=== PATIENT | male | born 1975 | race Caucasian/White ===

== ENCOUNTER → 2018-05-30 11:43 | Outpatient (CLI) | payer OTHER, MEDICAID, SELFPAY ==
[2018-05-30 14:30] LABS: ALB/GLOB Ratio 1.1 RATIO (0.9-2.4); AST(SGOT) 19 U/L (15-37); Absolute Lymphocyte Count 1.88 X10^3/ul (0.83-4.51); Absolute Neutrophil Count 4.7 X10^3/uL (2.0-7.7); Alanine Aminotransfer ALT/SGPT 21 U/L (16-61); Albumin, Serum 4.1 g/dL (3.2-5.0); Alkaline Phosphatase 78 U/L (45-117); Anion Gap 9 (5-15); BUN 22 mg/dL (7-18); BUN/Creat Ratio 21.8 RATIO (10-20); Basophil# 0.03 X10^3/uL; Basophil% 0.4 % (0-1); Calcium,Total 8.9 mg/dL (8.5-10.1); Chloride 103 mmol/L (98-107); Creatinine, Serum 1.01 mg/dL (0.70-1.30); EST Glomerular Filtration Rate 85 mL/min (>60); Eosinophil# 0.05 X10^3/uL; Eosinophils% 0.7 % (0-5); Est Glom Filt Rate - Afr Amer 103 mL/min (>60); Globulin 3.8 g/dL (2.2-4.2); Glucose 100 mg/dL (74-106); Hematocrit 46.6 % (40-54); Hemoglobin 15.7 g/dl (13.0-16.5); Lymphocyte # 1.88 X10^3/ul (4.0); Lymphocyte % 26.3 % (19-41); Mean Corp Hgb Conc 33.7 g/gl (32-36); Mean Corpuscular Hgb 31.5 pg (27.0-32.0); Mean Corpuscular Volume 93.6 fL (80-94); Mean Platelet Vol. 12.3 fl (6.2-12.0); Neutrophil # 4.69 X10^3/uL (2.7-7.7); Neutrophil % 65.6 % (47-70); POSITIVE COUNT NO; POSITIVE DIFFERENTIAL NO; POSITIVE MORPHOLOGY NO; Platelet Count 206 K/mm3 (150-450); Protein, Total 7.9 g/dL (6.4-8.2); RBC Distribution Width CV 13.5 % (11.6-14.6); RBC Distribution Width SD 45.1 fl (35.1-43.9); Red Blood Count 4.98 M/mm3 (4.6-6.2); Sodium Level 140 mmol/L (136-145); White Blood Count 7.2 K/mm3 (4.4-11.0)
== END ==
PROVIDERS: Family Provider Family Medicine; PCP Family Medicine; Visit Provider Family Medicine
DX: R31.0 Gross hematuria (principal); R10.32 Left lower quadrant pain; R50.9 Fever, unspecified
CPT/HCPCS: 36415; 80053; 85025; 87086

== ENCOUNTER → 2018-06-04 16:21 | Outpatient (CLI) | payer OTHER, MEDICAID, SELFPAY ==
--- NOTE | 2018-06-04 16:24 | CT_ITS ---
STUDY: CT ABDOMEN AND PELVIS WITH AND WITHOUT CONTRAST REASON FOR EXAM: Male, 42 years old. Left lower quadrant pain and hematuria RADIATION DOSAGE (If Supplied By Facility): CTDIvol = ( 11.95 ) mGy, DLP = ( 1253.93 ) mGycm TECHNIQUE: Transaxial images were obtained from the dome of the diaphragm to the symphysis pubis with oral contrast. 100 ml of Isovue 300 contrast was administered. Sagittal and coronal images were reconstructed. Individualized dose optimization techniques were used for this CT. COMPARISON: None. FINDINGS: The visualized lung bases are unremarkable. The visualized portions of the heart are within normal limits. Normal liver. Normal gallbladder and extrahepatic biliary system. Normal spleen. Normal pancreas. Normal bilateral adrenal glands. Normal right kidney. 9 mm nonobstructing left renal calculus. Mild prominence of the left renal pelvis with associated enhancement. No associated obstructing ureter stone. Findings could be related to mild residual acute obstructive uropathy. Normal visualized stomach. Normal small intestine. Probable constipation. The appendix is visualized and appears normal. Normal abdominal aorta. Normal inferior vena cava. Normal retroperitoneum. Normal urinary bladder. Normal abdominal wall. Normal osseous structures. Vasectomy clips. CT/CT Abd/Pelvis W/WO Contrast IMPRESSION: 9 mm nonobstructing left renal calculus. Mild prominence of the left renal pelvis with associated faint postcontrast enhancement. No associated obstructing ureter stone. These could be related to mild residual acute obstructive uropathy. No evidence of acute intestinal pathology. Probable constipation. Electronically Signed: Clifton Huitron MD at 6:51 EDT Tel , Service support ,
== END ==
PROVIDERS: Family Provider Family Medicine; PCP Family Medicine; Visit Provider Family Medicine
DX: R31.0 Gross hematuria (principal); R10.32 Left lower quadrant pain; R19.04 Left lower quadrant abdominal swelling, mass and lump
CPT/HCPCS: 74178; Q9967

== ENCOUNTER 2018-06-08 09:29 | Day surgery (SDC) | payer OTHER, MEDICAID, SELFPAY ==
--- NOTE | 2018-06-08 09:43 | RAD_ITS ---
STUDY: X-RAY - ABDOMEN/PELVIS REASON FOR EXAM: Male, 42 years old. Kidney stone TECHNIQUE: Single AP view of the abdomen / pelvis. COMPARISON: CT June 04, 2013 FINDINGS: Normal visualized lung bases. There is an unremarkable bowel gas pattern. There is no demonstrated free abdominal air. There is 1.0 cm left mid abdominal calcification consistent with renal stone. Normal visualized osseous structures. RAD/Abdomen Single View IMPRESSION: Left renal stone. Electronically Signed: Boogie Rodriguez MD at 13:48 EDT , Service support ,
[2018-06-08 10:06] VITALS: BP 112/75; PULSE 68; RESP 16; TEMP 36.8; O2SAT 100; BMI 24.6
[2018-06-08] MEDS: Cefazolin 2 GM in 0.9% Normal Saline 100 ML IV (10:50)
--- NOTE | 2018-06-08 10:57 | PCM.DC.URO ---
Discharge Diet: Light diet - advance as tolerated Discharge Activity: May not drive while taking narcotic pain medications. Allergies/Adverse Reactions: Allergies No Known Allergies Allergy (Verified 06/08/18 10:06) Medications to take at Discharge Cetirizine HCl [Zyrtec] 10 mg PO QHS 02/22/14 Cholecalciferol (Vitamin D3) [Vitamin D-3] 2,000 unit PO DAILY 02/22/14 Amitriptyline HCl [Elavil] 10 mg PO QHS 06/06/18 Aspirin [Adult Aspirin] 81 mg PO DAILY 06/06/18 Topiramate [Topamax] 50 mg PO QHS 06/06/18 Hydrocodone/Acetaminophen [[place] 5-325 Tablet] 1 ea PO Q4H PRN PRN 5 Days #14 tab 06/08/18 The following prescriptions were given: Hydrocodone/Acetaminophen [[place] 5-325 Tablet] 1 ea PO Q4H PRN PRN 5 Days #14 tab PRN Reason: Pain Primary Care Physician: Burton Graff MD [Primary Care Provider] - Test Results: Test results from this visit will be discussed in further detail at your follow-up appointment, if applicable. Please Follow Up With: Jose Cruz Bassett MD When: in 2 weeks, please call to make an appointment.
--- NOTE | 2018-06-08 11:36 | PCM.OPRPT ---
Report of Operation Date of Procedure: 06/08/18 Pre-Operative Diagnosis: Left kidney stone Post-Operative Diagnosis: Same Surgery/Procedure Performed:: Left extracorporeal shockwave lithotripsy Description of Surgical Findings:: 42-year-old male presented to the office he been having left flank pain and also passed a small fragment had some gross hematuria. CAT scan was done that demonstrated a stone up in the left kidney the renal pelvis about 9 mm in size. No other findings are seen. Plan to proceed with left ESWL shockwave lithotripsy of the stone in the kidney. 42-year-old male taken back to the operating room at the smooth induction of general anesthesia he was placed supine on the table we localize the stone in the left kidney stone was placed in the F2 focal point of the lithotripter machine and then a total of 3000 shocks were delivered to the stone at a rate of 90 power between 5-7 kV. The stone broke up very rapidly and at the end of treatment cycle there was no visible fragments. Therefore no stent was placed patient anesthetic was reversed taken back to PACU good condition plan to see him back in a few weeks with an x-ray. Type of Anesthesia:: General Drains: none - Admit VTE Documentation VTE Present on Admission: No VTE Mechan Device Prophylaxis: SCD's
[2018-06-08 11:49] VITALS: BP 112/75; BP 126/88; PULSE 55; RESP 18; TEMP 36.1; O2SAT 99
[2018-06-08 12:00] VITALS: BP 112/75; BP 118/86; PULSE 59; RESP 16; O2SAT 100
[2018-06-08 12:15] VITALS: BP 112/75; BP 128/86; PULSE 62; RESP 16; O2SAT 100
[2018-06-08 12:30] VITALS: BP 112/75; BP 126/86; PULSE 58; RESP 18; TEMP 36.3; O2SAT 100
[2018-06-08 13:33] VITALS: BP 112/75; BP 127/78; PULSE 61; RESP 16; TEMP 36.3; O2SAT 100
== END 2018-06-08 13:38 | disposition home or self-care (01) ==
LOC: SDC 09:32 → AC 09:32
PROVIDERS: Family Provider Family Medicine; PCP Family Medicine; Visit Provider Urology
PROC: (CPT 50590; principal; 2018-06-08 11:00)
DX: N20.0 Calculus of kidney (principal); R10.84 Generalized abdominal pain; R31.0 Gross hematuria; Z87.442 Personal history of urinary calculi
CPT/HCPCS: 00873; 50590; 74018; J7120; J2405

== ENCOUNTER → 2018-06-26 15:08 | Outpatient (CLI) | payer OTHER, MEDICAID, SELFPAY | PROVIDERS: Family Provider Family Medicine; PCP Family Medicine; Visit Provider Urology | DX: N20.0 Calculus of kidney (principal) | CPT/HCPCS: 74018 ==

== ENCOUNTER → 2018-12-11 13:54 | Outpatient (CLI) | payer OTHER, MEDICAID, SELFPAY ==
[2018-12-10 17:51] VITALS: BMI 25.8
[2018-12-11 14:01] LABS: Bacteria 0 SEEN /hpf (None Seen); Mucous, Urine 0 SEEN /hpf (<or=2+); Red Blood Cells-Urine 0 SEEN /hpf (0-5); Squamous Epithelial Cells - UA 0 SEEN /hpf (0-5); White Blood Cells 0 SEEN /hpf (0-5)
[2018-12-11 14:07] LABS: Color, Urine Yellow (Yellow); Glucose, Dipstick Normal (Normal); Ketone-Dipstick 15 mg/dl (Negative); Leukocyte Esterase-Dipstick Negative /ul (Negative); Nitrite-Dipstick Negative (Negative); Occult Blood-Urine Negative /ul (Negative); Protein-Dipstick Negative (Negative); Urine Bilirubin Dipstick Negative (Negative); Urine Clarity Clear (Clear); Urine Urobilinogen Normal (Normal); Urine pH 6.5 (5.0 - 8.0)
== END ==
PROVIDERS: Family Provider Family Medicine; PCP Family Medicine; Referring Provider Physician Assistant Surgical; Visit Provider Physician Assistant Surgical
DX: R30.0 Dysuria (principal)
CPT/HCPCS: 81001; 87086

== ENCOUNTER → 2018-12-25 15:54 | Outpatient (CLI) | payer OTHER, SELFPAY ==
[2018-12-10 17:51] VITALS: BMI 25.8
--- NOTE | 2018-12-25 16:03 | RAD_ITS ---
HISTORY: Pt. has a history of kidney stones, currently having LLQ and RLQ pain, as well as groin pain EXAM: KUB COMPARISON: None FINDINGS: # of images incl. paperwork: 2 XR Abdomen 1 View: BOWEL GAS PATTERN: Non-obstructive. No bowel or stomach distention. FREE AIR: Not assessed on a single supine view. ORGANOMEGALY: Not seen. CALCIFICATIONS: No pathologic calcifications observed. LUNG BASES: Clear. BONES AND SOFT TISSUES: Unremarkable. RAD/Abdomen Single View IMPRESSION: No visible renal, ureteral or urinary bladder calculi. at 0423 Reported and signed by: Axel Brown MD Electronically Signed: Axel Brown, at 4:21 EST Tel , Service support ,
== END ==
PROVIDERS: Family Provider Family Medicine; PCP Family Medicine; Referring Provider Urology; Visit Provider Urology
DX: N20.0 Calculus of kidney (principal)
CPT/HCPCS: 74018

== ENCOUNTER → 2020-01-06 | Outpatient (CLI) | payer BC, SELFPAY ==
[2018-12-10 17:51] VITALS: BMI 25.8
== END | disposition home or self-care (01) ==
LOC: LABSPEC 10:49
PROVIDERS: PCP Family Medicine; Visit Provider Urology
DX: N20.0 Calculus of kidney (principal)
CPT/HCPCS: 82360

== ENCOUNTER → 2020-01-14 | Outpatient (CLI) | payer BC, SELFPAY ==
[2018-12-10 17:51] VITALS: BMI 25.8
--- NOTE | 2020-01-14 16:05 | RAD_ITS ---
STUDY: X-RAY - ABDOMEN/PELVIS REASON FOR EXAM: Male, 44 years old. bilateral flank pain, kidney stone Hx, patient states he passed one recently TECHNIQUE: Single AP view of the abdomen / pelvis. COMPARISON: None. FINDINGS: Normal visualized lung bases. There is a moderate amount of colonic fecal material. There is no demonstrated free abdominal air. The visualized liver, spleen and kidneys are grossly normal in size and morphology. Surgical clips below the pubic symphysis, otherwise unremarkable soft tissue structures. Normal visualized osseous structures. RAD/Abdomen Single View IMPRESSION: Moderate fecal debris as described above, otherwise unremarkable x-ray examination of the abdomen and pelvis. Electronically Signed: Anastasia Correia MD at 3:59 EDT , Service support ,
== END | disposition home or self-care (01) ==
PROVIDERS: PCP Family Medicine; Referring Provider Urology; Visit Provider Urology
DX: N20.0 Calculus of kidney (principal)
CPT/HCPCS: 74018

== ENCOUNTER 2020-01-17 08:14 | Day surgery (SDC) | payer BC, SELFPAY ==
[2018-12-10 17:51] VITALS: BMI 25.8
[2020-01-17 08:31] VITALS: BP 118/72; PULSE 65; RESP 14; TEMP 36.7; O2SAT 98; BMI 26.2
[2020-01-17] MEDS: Lactated Ringers 1,000 ML 100 ML IV ×2 (08:42→12:15)
--- NOTE | 2020-01-17 11:38 | DCINST_ITS ---
Discharge Diet: Light diet - advance as tolerated Discharge Activity: Return to Normal Activity Instructions: Shock Wave Lithotripsy Allergies/Adverse Reactions: Allergies No Known Allergies Allergy (Verified 01/16/20 08:57) Medications to take at Discharge Cetirizine HCl [Zyrtec] 10 mg PO QHS 02/22/14 Cholecalciferol (Vitamin D3) [Vitamin D-3] 2,000 unit PO QHS 02/22/14 Amitriptyline HCl [Elavil] 10 mg PO QHS 06/06/18 Aspirin [Adult Aspirin] 81 mg PO DAILY 06/06/18 Topiramate [Topamax] 50 mg PO QHS 06/06/18 Ibuprofen [Advil] 200 mg PO PRN PRN 01/16/20 Hydrocodone/Acetaminophen [[place] 5-325 Tablet] 1 each PO Q4H PRN PRN 5 Days #14 tablet 01/17/20 The following prescriptions were given: Hydrocodone/Acetaminophen [[place] 5-325 Tablet] 1 each PO Q4H PRN PRN 5 Days #14 tablet PRN Reason: Pain Score 1-10/10 Transmission Status: Sent to [id number] Primary Care Physician: Burton Graff MD [Primary Care Provider] - Test Results: Test results from this visit will be discussed in further detail at your follow- up appointment, if applicable. Please Follow Up With: Jose Cruz Bassett MD When: in 2 weeks, please call to make an appointment.
[2020-01-17] MEDS: Cefazolin 2 GM in 0.9% Normal Saline 100 ML IV (11:40)
--- NOTE | 2020-01-17 12:14 | PCM.OPRPT ---
Report of Operation Date of Procedure: 01/17/20 Pre-Operative Diagnosis: Left ureteral calculi 6 mm Post-Operative Diagnosis: Same Surgery/Procedure Performed:: Left extracorporeal shockwave lithotripsy. Description of Surgical Findings:: The patient presents to the hospital today for treatment of a calculus with shockwave lithotripsy. The patient understands it is possible that a stent may need to be placed to assist in the fragmentation and displacement of the stone in order to alleviate obstruction. We discussed how the procedure is done expected outcomes. The Patient understands it is possible the stone may not break successfully and may require further procedures. We talked about the risks of the shockwave lithotripsy including risk of infection, bleeding, failure to break the stone, bleeding from the kidney or retroperitoneal bleeding and a very rare risk of a blood transfusion. We discused the risk of anesthesia. All the patient's questions were addressed and answered before the surgery and the patient signed the consent form. The patient was taken back to the operating room and after smooth induction of anesthesia was transferred onto the lithotripter table, fluoroscopy was used to identify the stone and then used triangulation technique to make sure the stone was in the F2 focal point of the lithotripter. Shockwave lithotripsy was started at a rate of 90/min and a total of 4000 shockwaves were delivered to the stone. During the treatment the stone was monitored with fluoroscopy to ensure that the stone maintained in the treatment zone and als fragmentation was monitored under fluoroscopy. Lithotripsy power used during the treatment was modified according to the fragmentation of the stone ranging from 5 to 9 kV depending on the location of the stone within the ureter and the kidney. After the completion of the therapy session the patient's anesthetic was reversed and was taken back to the PACU in stable condition. Type of Anesthesia:: General Drains: No stent - Admit VTE Documentation VTE Present on Admission: No VTE Mechan Device Prophylaxis: SCD's
[2020-01-17 12:45] VITALS: BP 118/72; BP 121/89; PULSE 73; RESP 18; TEMP 36.1; O2SAT 95
[2020-01-17 13:00] VITALS: BP 118/72; BP 121/90; PULSE 70; RESP 16; O2SAT 97
[2020-01-17] MEDS: Ketorolac 15 MG/ML Vial IV (13:01)
[2020-01-17 13:15] VITALS: BP 118/72; BP 119/83; PULSE 58; RESP 16; O2SAT 97
[2020-01-17 13:31] VITALS: BP 112/79; BP 118/72; PULSE 59; RESP 16; TEMP 36.2; O2SAT 99
[2020-01-17 14:21] VITALS: BP 118/72
== END 2020-01-17 14:22 | disposition home or self-care (01) ==
LOC: SDC 08:16 → AC 08:17
PROVIDERS: PCP Family Medicine; Referring Provider Urology; Visit Provider Urology
PROC: (CPT 50590; principal; 2020-01-17 09:45)
DX: N20.1 Calculus of ureter (principal); I15.8 Other secondary hypertension; G43.909 Migraine, unspecified, not intractable, without status migrainosus; Z87.442 Personal history of urinary calculi; Z79.82 Long term (current) use of aspirin; Z79.899 Other long term (current) drug therapy; Z86.73 Personal history of transient ischemic attack (TIA), and cerebral infarction without residual deficits
CPT/HCPCS: 50590; J7120; J2405

== ENCOUNTER → 2020-04-14 | Outpatient (CLI) | payer BC, SELFPAY ==
--- NOTE | 2020-04-14 15:07 | RAD_ITS ---
STUDY: X-RAY - ABDOMEN/PELVIS REASON FOR EXAM: Male, 44 years old. F/U PATIENT STATES HX OF KIDNEY STONES ON THE LEFT. HAD RECENT SURGERY TO REMOVE. TECHNIQUE: Single AP view of the abdomen / pelvis. COMPARISON: 01/14/2020 FINDINGS: There is an unremarkable bowel gas pattern. There is no demonstrated free abdominal air. The visualized liver, spleen and kidneys are grossly normal in size and morphology. Normal soft tissue structures. Normal visualized osseous structures. RAD/Abdomen Single View IMPRESSION: No urinary tract calculi are visible. Electronically Signed: Clifton Huitron MD at 17:27 EDT Tel , Service support ,
== END | disposition home or self-care (01) ==
LOC: RAD.FUTURE 15:05
PROVIDERS: PCP Family Medicine; Referring Provider Urology; Visit Provider Urology
DX: N20.1 Calculus of ureter (principal)
CPT/HCPCS: 74018

== ENCOUNTER → 2020-08-14 | Outpatient (CLI) | payer BC, SELFPAY ==
--- NOTE | 2020-08-14 08:22 | STRESSREP_ITS ---
Stress Test Report Date: Procedure: Exercise tolerance test/imaging study Indications: Chest pain Consent: Per the patient Procedure: The patient exercised on a Raul protocol for 9 minutes completing Stage III achieving a peak heart rate of 151 bpm (86% predicted maximal heart rate) with a peak blood pressure 152/84 mmHg and a peak MET capacity of 10 METs. The baseline ECG demonstrated normal sinus rhythm. The peak exercise ECG demonstrated no obvious ECG changes. There were no cardiac dysrhythmias pretest, during exercise, or recovery. The functional capacity was considered good. There was no complaint of chest discomfort during exercise or recovery. The examination was discontinued secondary to dyspnea. Impression: 1. Technically adequate (percent predicted maximal heart rate greater than 85%) exercise tolerance test 2. Peak exercise ECG demonstrated no obvious ECG changes 3. There were no cardiac dysrhythmias pretest, during exercise, or recovery 4. Nuclear images pending Myocardial perfusion imaging study: Technique: The patient was injected with 11.8 mCi of technetium 99m Cardiolite and subsequently rest SPECT Cardiolite nuclear imaging was obtained in the horizontal long, vertical long, and short axis views. The patient exercised on a Raul protocol for 9 minutes completing Stage III achieving a peak heart rate of 151 bpm (86% predicted maximal heart rate) with a peak blood pressure 152/84 mmHg and a peak MET capacity of 10 METs. The patient was injected with 35.8 mCi of technetium 99m Cardiolite and subsequently stress SPECT Cardiolite nuclear imaging was obtained in the horizontal long, vertical long, and short axis views. A gated Cardiolite study at peak stress was obtained. Interpretation: Rest and stress SPECT Cardiolite nuclear imaging status post realignment, normalization, and attenuation correction, demonstrates a small area of subtle diminished tracer uptake near the apical segments without significant change between rest and stress. There is end systolic thickening and brightening. The gated Cardiolite study demonstrates myocardial thickening and inward wall motion. The reported LVEF is 62%. Impression: 1. Rest and stress SPECT Cardiolite nuclear imaging demonstrate myocardial perfusion change appearing compatible with the effects of etiologic apical thinning with no myocardial perfusion changes considered diagnostic for associated stress-induced myocardial ischemia. 2. The gated Cardiolite study reports an LVEF of 62%. This note was generated with Simplificareation software. It may contain incorrect words, spelling, and punctuation that were not noted in checking the note before signing.
== END | disposition home or self-care (01) ==
PROVIDERS: PCP Family Medicine; Referring Provider Family Medicine; Visit Provider Family Medicine
DX: R07.9 Chest pain, unspecified (principal)
CPT/HCPCS: 78452; 93017; A9500; A4216

== ENCOUNTER → 2022-05-09 | Outpatient (CLI) | payer BC, SELFPAY ==
[2022-05-09 09:44] LABS: Absolute Lymphocyte Count 2.69 X10^3/uL (0.83-4.51); Absolute Neutrophil Count 3.9 X10^3/uL (2.0-7.7); Basophil# 0.06 X10^3/uL; Basophil% 0.8 % (0-1); Eosinophils% 1.3 % (0-5); Hematocrit 44.8 % (40-54); Hemoglobin 14.8 g/dL (13.0-16.5); Lymphocyte # 2.69 X10^3/ul (0.83-4.51); Lymphocyte % 34.8 % (19-41); Mean Corpuscular Hgb 30.8 pg (27.0-32.0); Mean Corpuscular Volume 93.3 fL (80-94); Mean Platelet Vol. 10.8 fl (6.2-12.0); Monocyte# 0.96 X10^3/uL; Monocyte% 12.4 % (0-10); NRBC Flagged by Analyzer 0 % (0-5); Neutrophil # 3.89 X10^3/uL (2.7-7.7); Neutrophil % 50.4 % (47-70); Platelet Count 241 K/mm3 (150-450); RBC Distribution Width CV 13.5 % (11.6-14.6); RBC Distribution Width SD 46.1 fl (35.1-43.9); White Blood Count 7.7 K/mm3 (4.4-11.0)
[2022-05-09 10:31] LABS: ALB/GLOB Ratio 1.1 RATIO (0.9-2.4); AST(SGOT) 35 U/L (15-37); Alanine Aminotransfer ALT/SGPT 22 U/L (16-61); Albumin, Serum 4.2 g/dL (3.2-5.0); Alkaline Phosphatase 95 U/L (45-117); Anion Gap 9 (5-15); BUN 24 mg/dL (7-18); BUN/Creat Ratio 21.8 RATIO (10-20); Calcium,Total 9.7 mg/dL (8.5-10.1); Chloride 100 mmol/L (98-107); Cholesterol 272 mg/dL (200); EST Glomerular Filtration Rate 76 mL/min (>60); Est Glom Filt Rate - Afr Amer 92 mL/min (>60); Globulin 3.8 g/dL (2.2-4.2); Glucose 106 mg/dL (74-106); High Density Lipoprotein 36 mg/dL; Potassium 3.7 mmol/L (3.5-5.1); Sodium Level 137 mmol/L (136-145); Triglycerides 242 mg/dL; Very Low Density Lipoprotein 48 mg/dL (5-40)
== END | disposition home or self-care (01) ==
PROVIDERS: PCP Family Medicine; Referring Provider Family Medicine; Visit Provider Family Medicine
DX: Z00.00 Encounter for general adult medical examination without abnormal findings (principal); E78.5 Hyperlipidemia, unspecified; Z79.899 Other long term (current) drug therapy
CPT/HCPCS: 36415; 80053; 80061; 85025

== ENCOUNTER → 2023-06-16 | Outpatient (CLI) | payer BC, SELFPAY ==
[2023-06-16 12:29] LABS: Absolute Lymphocyte Count 3.13 X10^3/uL (0.83-4.51); Absolute Neutrophil Count 4.6 X10^3/uL (2.0-7.7); Basophil# 0.05 X10^3/uL; Basophil% 0.6 % (0-1); Eosinophil# 0.11 X10^3/uL; Eosinophils% 1.3 % (0-5); Hematocrit 44.9 % (40-54); Hemoglobin 14.8 g/dL (13.0-16.5); Lymphocyte # 3.13 X10^3/ul (0.83-4.51); Lymphocyte % 36.1 % (19-41); Mean Corpuscular Hgb 31.3 pg (27.0-32.0); Mean Corpuscular Volume 94.9 fL (80-94); Mean Platelet Vol. 11.2 fl (6.2-12.0); Monocyte# 0.76 X10^3/uL; Monocyte% 8.8 % (0-10); NRBC Flagged by Analyzer 0 % (0-5); Platelet Count 228 K/mm3 (150-450); RBC Distribution Width CV 13.2 % (11.6-14.6); RBC Distribution Width SD 46.5 fl (35.1-43.9); Red Blood Count 4.73 M/mm3 (4.6-6.2); White Blood Count 8.7 K/mm3 (4.4-11.0)
[2023-06-16 13:09] LABS: ALB/GLOB Ratio 1.1 RATIO (0.9-2.4); AST(SGOT) 23 U/L (15-37); Alanine Aminotransfer ALT/SGPT 21 U/L (16-61); Albumin, Serum 3.9 g/dL (3.2-5.0); Alkaline Phosphatase 96 U/L (45-117); Anion Gap 7 (5-15); BUN 18 mg/dL (7-18); BUN/Creat Ratio 16.5 RATIO (10-20); Calcium,Total 9.2 mg/dL (8.5-10.1); Chloride 104 mmol/L (98-107); Cholesterol 170 mg/dL (200); Creatinine, Serum 1.09 mg/dL (0.70-1.30); EST Glomerular Filtration Rate 76 mL/min (>60); Est Glom Filt Rate - Afr Amer 92 mL/min (>60); Globulin 3.6 g/dL (2.2-4.2); Glucose 101 mg/dL (74-106); High Density Lipoprotein 39 mg/dL; Potassium 3.9 mmol/L (3.5-5.1); Protein, Total 7.5 g/dL (6.4-8.2); Sodium Level 139 mmol/L (136-145); Triglycerides 311 mg/dL; Very Low Density Lipoprotein 62 mg/dL (5-40)
[2023-06-16 13:14] LABS: Hemoglobin A1c 5.5 % (3.8-5.6)
== END | disposition home or self-care (01) ==
LOC: BFHLAB 10:24
PROVIDERS: PCP Family Medicine; Referring Provider Family Medicine; Visit Provider Family Medicine
DX: Z00.00 Encounter for general adult medical examination without abnormal findings (principal); E78.5 Hyperlipidemia, unspecified; R73.01 Impaired fasting glucose
CPT/HCPCS: 36415; 80053; 80061; 83036; 85025

== ENCOUNTER → 2023-09-15 | Outpatient (CLI) | payer BC, SELFPAY ==
[2023-09-15 16:01] LABS: Erythrocyte Sedimentation Rate 2 mm/hr (0-20)
[2023-09-15 16:31] LABS: CRP < 2.90 mg/L (0.0-3.0); Rheumatoid Factor < 10.0 IU/mL (<15)
[2023-09-18 13:07] LABS: ANTINUCLEAR ANTIBODIES DIRECT Negative (Negative); CCP IgG Antibodies 5 units (0-19)
== END | disposition home or self-care (01) ==
PROVIDERS: PCP Family Medicine; Visit Provider Family Medicine
DX: G70.00 Myasthenia gravis without (acute) exacerbation (principal); M25.50 Pain in unspecified joint; I67.82 Cerebral ischemia
CPT/HCPCS: 36415; 85652; 86038; 86140; 86200; 86431

== ENCOUNTER → 2023-09-27 | Outpatient (CLI) | payer BC, SELFPAY ==
[2023-09-27 12:49] LABS: Erythrocyte Sedimentation Rate 2 mm/hr (0-20)
[2023-09-27 12:52] LABS: Hematocrit 46.8 % (40-54); Hemoglobin 15.4 g/dL (13.0-16.5); Mean Corp Hgb Conc 32.9 g/dL (32-36); Mean Corpuscular Hgb 31.1 pg (27.0-32.0); Mean Corpuscular Volume 94.5 fL (80-94); Mean Platelet Vol. 11.8 fl (6.2-12.0); Platelet Count 247 K/mm3 (150-450); RBC Distribution Width CV 13.1 % (11.6-14.6); RBC Distribution Width SD 45.4 fl (35.1-43.9); Red Blood Count 4.95 M/mm3 (4.6-6.2); White Blood Count 7.5 K/mm3 (4.4-11.0)
[2023-09-27 13:19] LABS: AST(SGOT) 15 U/L (15-37); Alanine Aminotransfer ALT/SGPT 13 U/L (16-61); Albumin, Serum 3.9 g/dL (3.2-5.0); Alkaline Phosphatase 93 U/L (45-117); Anion Gap 6 (5-15); BUN 17 mg/dL (7-18); BUN/Creat Ratio 15.5 RATIO (10-20); Calcium,Total 8.9 mg/dL (8.5-10.1); Chloride 104 mmol/L (98-107); EST Glomerular Filtration Rate 75 mL/min (>60); Est Glom Filt Rate - Afr Amer 91 mL/min (>60); Globulin 3.8 g/dL (2.2-4.2); Glucose 97 mg/dL (74-106); Magnesium 2.3 mg/dL (1.6-2.6); Potassium 4.2 mmol/L (3.5-5.1); Protein, Total 7.7 g/dL (6.4-8.2); Sodium Level 138 mmol/L (136-145)
[2023-10-03 17:07] LABS: Anti-Cardiolipin Ab, IgA, Qn < 9 APL U/mL (0-11); Anti-Cardiolipin Ab, IgG, Qn < 9 GPL U/mL (0-14); Anti-Cardiolipin Ab, IgM, Qn < 9 MPL U/mL (0-12); Anti-Thrombin 3 AG, Immunol 130 % (72-124); Antithrombin 3 Function 123 % (75-135); Complement C3 140 mg/dL (82-167); Complement CH50 > 60 U/mL (>41); Dilute Prothrombin Time (dPT) 40.4 sec (0.0-47.6); Dilute Russell Viper Venom 125.4 sec (0.0-47.0); Dilute Russell Viper Venom Mix 37.9 sec (0.0-40.4); Interpretation Comment: (.); PTT-LA 38.4 sec (0.0-43.5); Protein C Antigen 127 % (60-150); Protein C, Functional 126 % (73-180); Protein S, Free 115 % (61-136); Protein S, Funtional 95 % (63-140); Protein S, Total 222 % (60-150); Thrombin Time 22.2 sec (0.0-23.0); dPT Confirm Ratio 1.13 Ratio (0.00-1.34)
== END | disposition home or self-care (01) ==
PROVIDERS: PCP Family Medicine; Referring Provider Psychiatry & Neurology Neurology; Visit Provider Psychiatry & Neurology Neurology
DX: I67.9 Cerebrovascular disease, unspecified (principal); G43.009 Migraine without aura, not intractable, without status migrainosus
CPT/HCPCS: 36415; 80053; 81240; 81241; 83735; 85027; 85300; 85301; 85302; 85303; 85305; 85306; 85652; 86147; 86160; 86162

== ENCOUNTER → 2023-10-18 | Outpatient (CLI) | payer BC, SELFPAY ==
--- NOTE | 2023-10-18 11:19 | MRI_ITS ---
INDICATION: Migraine headaches EXAMINATION: MRI - MR Brain WO/W Contrast TECHNIQUE: MRI examination of brain obtained with standard protocol including multiplanar multiecho imaging. MRI examination obtained with multiplanar multiecho pre and postcontrast imaging. Pre and Postcontrast imaging obtained. IV Contrast Dosage and Agent: 20 mL clariscan COMPARISON: 09/15/2015 FINDINGS: HEMISPHERES, CEREBELLUM AND BRAINSTEM: 1. The cerebral parenchyma, ventricular system, subarachnoid spaces have normal configuration and density. There is a normal gyral pattern. There is normal fonseca/white differentiation. No midline shift.. 2. There are scattered areas of T2 and FLAIR signal hyperintensity bilaterally. Many of these are located in the juxtacortical position. Largest is present within the RIGHT frontal lobe at the level of the RIGHT inferior frontal gyrus sac, and measures approximately 5 x 9 mm (series 6: Image 19). This appears increased in size slightly in the interval. No evidence of fluid restriction or acute ischemia. No areas of abnormal contrast enhancement. 3. No intraparenchymal mass, hemorrhage, or acute territorial infarct. 4. The cerebellum, brainstem, basilar and suprasellar cisterns have normal appearance. No Chiari malformation. PITUITARY: Infundibulum and pituitary have normal configuration. Midline structures appear normal. CSF SPACES: Appropriate for age. No hydrocephalus. Basal cisterns are patent. VESSELS: 1. There are normal flow voids noted in the great vessels at the skull base ORBITS AND PARANASAL SINUSES: 1. Both globes, extraocular muscles, optic nerves and retrobulbar fat appear unremarkable. 2. Paranasal sinuses are clear. BONY ELEMENTS: Bony elements of the cranial vault, facial skeleton and skull base have normal appearance. SCALP AND SOFT TISSUES: Normal appearance of the soft tissues of the scalp and the visualized face OTHER: None MRI/Brain W/WO Contrast IMPRESSION: 1. Persistent hemispheric white matter signal abnormalities with slight increase in a focal area of subcortical white matter signal hyperintensity in the RIGHT inferior frontal gyrus. Remaining areas appear stable. Findings may represent sequelae of early chronic microvascular deep white matter disease. Sequelae of migraine syndrome is an additional consideration. 2. No mass, hemorrhage, or acute territorial infarct. 3. No radiographically significant sinus disease. Electronically Signed: Laith Ramires MD at 23:37 EST ,
== END | disposition home or self-care (01) ==
PROVIDERS: PCP Family Medicine; Referring Provider Psychiatry & Neurology Neurology; Visit Provider Psychiatry & Neurology Neurology
DX: G43.009 Migraine without aura, not intractable, without status migrainosus (principal)
CPT/HCPCS: 70553; A9575

== ENCOUNTER → 2023-10-25 | Outpatient (CLI) | payer BC, SELFPAY ==
--- OUTSIDE RECORDS SUMMARY | 2023-10-26 07:05 | XMS RPT_ITS | CCD ---
Author Name Unknown Address [address] [place] [address] Organization [facility] Results Test Name Value Interpretation Reference Range Facil ity Progress note 05-07-2021 Note Date & Type Note Facility 05-07-2021 Note HNO ID: [id number] Author: Clifton Beck Jr., MD Service: ? Author Type: Physician Type: Progress Notes Filed: 05/07/2021 5:27 PM Note Text: ESTABLISHED PATIENT VISIT CHIEF COMPLAINT: Follow up HISTORY OF PRESENT ILLNESS: Maury Yen is a 45 year old male, with a PMH significant for and per last office visit note of 11/02/20: 1. Intractable migraine without aura and without status migrainosus - ICD9: 346.11, ICD10: G43.019 (primary diagnosis) Doing well on VPA ER 500mg QHS. Uncertain if weight gain related to VPA or other. Discussed with patient, and provided option of lowering VPA dose or alternative therapy. However, patient would like to continue VPA ER at current dose of 500mg QHS. SE and ADRs reviewed with patient. If weight gain persists he will contact us and at that time can lower dose to 250mg QHS. ? 2. Renal stones - ICD9: 592.0, ICD10: N20.0 Asx since d/c of Topamax. ? 3. Abnormal involuntary movement - ICD9: 781.0, ICD10: R25.9 Improved on VPA ER - only present when in significant stressful situation. ? 4. White matter disease, unspecified - ICD9: 348.89, ICD10: R90.82 Stable in comparing prior MRI to present. Likely related to migraines. Would be atypical pattern for demyelinating process. Images reviewed with patient. Non-focal neuro exam. Will continue to monitor. ? 5. Chest pain as above - Encouraged pt to follow up with PCP. Patient reports not doing bad. No more renal stones. States weight has been stable. Feels headaches are occasional. February 6 headaches since last visit, and last only a couple hours with them aborted with use of Advil. States appetite is crazy. Chest pain resolved - passed stress test per patient. Was put on PPI for 2 months and quit Vit C and K+Citrate -- symptoms have since resolved. Still with occasional involuntary movement but <1 per month and usually if really hungry. New job - more stress but not exacerbating medical conditions. REVIEW OF SYSTEMS GENERAL:No weight loss, malaise or fevers. HEENT:Negative for frequent or significant headaches, No changes in hearing or vision, no nose bleeds or other nasal problems RESPIRATORY: Negative for cough, wheezing or shortness of breath. CARDIOVASCULAR: Negative for chest pain, leg swelling or palpitations. LAB/IMAGING: Those performed since patient's last visit have been reviewed. WBC (k/uL) Date Value 05/04/2020 8.17 RBC (m/uL) Date Value 05/04/2020 4.81 Hemoglobin (g/dL) Date Value 05/04/2020 14.9 Hematocrit (%) Date Value 05/04/2020 46.4 MCV (fL) Date Value 05/04/2020 96.5 MCH (pG) Date Value 05/04/2020 31.0 MCHC (g/dL) Date Value 05/04/2020 32.1 RDW-CV (%) Date Value 05/04/2020 13.7 Platelet Count (k/uL) Date Value 05/04/2020 222 MPV (fL) Date Value 05/04/2020 11.7 Glucose (mg/dL) Date Value 05/04/2020 91 BUN (mg/dL) Date Value 05/04/2020 24 Creatinine (mg/dL) Date Value 05/04/2020 1.10 Sodium (mmol/L) Date Value 05/04/2020 139 Potassium (mmol/L) Date Value 05/04/2020 4.0 Chloride (mmol/L) Date Value 05/04/2020 104 CO2 (mmol/L) Date Value 05/04/2020 24 Protein, Total (g/dL) Date Value 05/04/2020 7.1 Albumin (g/dL) Date Value 05/04/2020 4.7 Calcium (mg/dL) Date Value 05/04/2020 9.3 Alkaline Phosphatase (U/L) Date Value 05/04/2020 77 Bilirubin, Total (mg/dL) Date Value 05/04/2020 0.9 AST (U/L) Date Value 05/04/2020 23 ALT (U/L) Date Value 05/04/2020 9 (L) MEDICATIONS: amitriptyline (ELAVIL) 10 mg tablet Take 1 tablet by mouth once daily. aspirin (ASPIR-81 ORAL) Take 1 tablet by mouth once daily. Cetirizine 10 mg cap Take 1 tablet by mouth once daily. cholecalciferol (VITAMIN D3) 400 unit tab Take 400 Units by mouth once daily. Ascorbic Acid (VITAMIN C) 1,000 mg tablet Take 1,000 mg by mouth once daily. naproxen (NAPROSYN) 500 mg tablet Take 1 tablet by mouth twice daily as needed (for headache.). Should not take more than 3 days per week (6 tabs) divalproex ER (DEPAKOTE ER) 500 mg 24 hr tablet Take 1 tablet by mouth daily at bedtime. potassium citrate ER (UROCIT-K) 10 mEq (1,080 mg) Take 1 tablet by mouth once daily. Bacillus coagulans (DIGESTIVE ADVANTAGE PROB GUMMY) 250 million cell Take 1 tablet by mouth once daily. cranberry conc-ascorbic acid 12,600-20 mg cap Take 1 capsule by mouth once daily. elderberry fruit (ELDERBERRY ORAL) Take 1 tablet by mouth once daily. methylPREDNISolone (MEDROL, CHANDRIKA,) 4 mg Dose-Pack Take as directed on package. HISTORIES No past medical history on file. No family history on file. SOCIAL HISTORY Social History Tobacco Use - Smoking status: Never Smoker - Smokeless tobacco: Never Used Substance Use Topics - Alcohol use: Never - Drug use: Never PHYSICAL EXAMINATION BP 116/68 (BP Site: Left Arm, BP Position: Sitting, BP Cuff Size: Regular Adult) Pulse (!) 50 Resp 12 Wt 91.5 kg (201 lb 1 (more content not included)... [facility] Summary Purpose Family History No Family History Records Found Advance Directives No Advanced Directives Records Found Additional Source Comments (unrecognized sect ion and content) No Status Records Found INFORMATION SOURCE (unrecogn ized section and content) FOR RECORDS PERTAINING TO PATIENTS WHO ARE OR HAVE BEEN ENROLLED IN A CHEMICAL DEPENDENCY/SUBSTANCEABUSE PROGRAM, SOME INFORMATION MAY BE OMITTED. This clinical summary was aggregated from multiple sources. Caution should be exercised in using it in the provision of clinical care. This summary normalizes information from multiple sources, and as a consequence, information in this document may materially change the coding, format and clinical context of patient data. In addition, data may be omitted in some cases. CLINICAL DECISIONS SHOULD BE BASED ON THE PRIMARY CLINICAL RECORDS. [facility]. provides no warranty or guarantee of the accuracy or completeness of information in this document.
== END | disposition home or self-care (01) ==
PROVIDERS: PCP Family Medicine; Referring Provider Psychiatry & Neurology Neurology; Visit Provider Psychiatry & Neurology Neurology
DX: G47.30 Sleep apnea, unspecified (principal)
CPT/HCPCS: 95806

== ENCOUNTER → 2024-06-12 | Outpatient (CLI) | payer BC, SELFPAY ==
[2024-06-12 12:21] LABS: Absolute Lymphocyte Count 2.74 X10^3/uL (0.83-4.51); Absolute Neutrophil Count 4.8 X10^3/uL (2.0-7.7); Basophil# 0.04 X10^3/uL; Basophil% 0.5 % (0-1); Eosinophil# 0.08 X10^3/uL; Eosinophils% 0.9 % (0-5); Hematocrit 44.8 % (40-54); Hemoglobin 14.8 g/dL (13.0-16.5); Lymphocyte # 2.74 X10^3/ul (0.83-4.51); Lymphocyte % 31.9 % (19-41); Mean Corpuscular Hgb 30.8 pg (27.0-32.0); Mean Corpuscular Volume 93.3 fL (80-94); Mean Platelet Vol. 11.6 fl (6.2-12.0); Monocyte# 0.91 X10^3/uL; Monocyte% 10.6 % (0-10); NRBC Flagged by Analyzer 0 % (0-5); Neutrophil # 4.81 X10^3/uL (2.7-7.7); Neutrophil % 55.9 % (47-70); Platelet Count 246 K/mm3 (150-450); RBC Distribution Width CV 13.3 % (11.6-14.6); White Blood Count 8.6 K/mm3 (4.4-11.0)
[2024-06-12 12:28] LABS: ALB/GLOB Ratio 1.1 RATIO (0.9-2.4); AST(SGOT) 27 U/L (15-37); Alanine Aminotransfer ALT/SGPT 21 U/L (16-61); Alkaline Phosphatase 89 U/L (45-117); Anion Gap 8 (5-15); BUN 19 mg/dL (7-18); BUN/Creat Ratio 16.8 RATIO (10-20); Calcium,Total 9.4 mg/dL (8.5-10.1); Chloride 100 mmol/L (98-107); Cholesterol 166 mg/dL (200); Creatinine, Serum 1.13 mg/dL (0.70-1.30); EST Glomerular Filtration Rate 73 mL/min (>60); Est Glom Filt Rate - Afr Amer 88 mL/min (>60); Globulin 3.8 g/dL (2.2-4.2); Glucose 101 mg/dL (74-106); High Density Lipoprotein 37 mg/dL; Potassium 3.9 mmol/L (3.5-5.1); Protein, Total 7.8 g/dL (6.4-8.2); Sodium Level 134 mmol/L (136-145); Triglycerides 287 mg/dL; Very Low Density Lipoprotein 57 mg/dL (5-40)
== END | disposition home or self-care (01) ==
LOC: MTLAB 10:02
PROVIDERS: PCP Family Medicine; Referring Provider Family Medicine; Visit Provider Family Medicine
DX: I10 Essential (primary) hypertension (principal); E78.5 Hyperlipidemia, unspecified
CPT/HCPCS: 36415; 80053; 80061; 85025

== ENCOUNTER → 2024-10-11 | Outpatient (CLI) | payer BC, SELFPAY ==
--- NOTE | 2024-10-11 10:04 | RAD_ITS ---
EXAM: XR THORACIC SPINE, 3 VIEWS CLINICAL INDICATION: Pain in thoracic spine TECHNIQUE: Frontal, lateral and swimmer''s views of the thoracic spine. COMPARISON: No relevant prior studies available. FINDINGS: VERTEBRAE: Unremarkable. Preserved vertebral body height. No fracture. No spondylolisthesis. Preservation of the normal thoracic kyphosis. No significant facet arthropathy. DISC SPACES: Mild degenerative changes of the intervertebral discs. RAD/Thoracic Spine 3 Views IMPRESSION: 1. No acute injuries identified involving the thoracic spine. 2. Mild degenerative changes. Electronically Signed: Moy Silverio MD at 11:56 EST ,
== END | disposition home or self-care (01) ==
LOC: MTRAD 10:02
PROVIDERS: PCP Family Medicine; Referring Provider Family Medicine; Visit Provider Family Medicine
DX: M54.6 Pain in thoracic spine (principal)
CPT/HCPCS: 72072

== ENCOUNTER → 2025-05-07 | Outpatient (CLI) | payer BC, SELFPAY ==
--- NOTE | 2025-05-07 06:32 | ECHOD_ITS ---
Reason For Study Reason For Study: CHEST PAIN Procedure This was a 2D Doppler, Color Flow transthoracic echocardiogram. Exam performed in department. Left Ventricle Normal size and thickness. The LV ejection fraction is 60 %. Normal diastololic function. Right Ventricle Normal right ventricle. Atria The left and right atria are normal. Mitral Valve Trivial mitral valve insufficiency. Tricuspid Valve Trivial tricuspid valve insufficiency. Normal pulmonary artery pressure. Aortic Valve Trisinus/trileaflet aortic valve. Pulmonic Valve The pulmonic valve is not well visualized. Trivial pulmonic valve insufficiency. Great Vessels Normal sized aortic root. Pericardium/Pleural No pericardial effusion. MMode/2D Measurements & Calculations LVIDd: 4.7 cm IVSd: 0.90 cm Ao root diam: 3.4 cm LVIDs: 3.4 cm LVPWd: 0.93 cm RVDd: 3.3 cm FS: 28.2 % LAV(MOD-bp): 49.0 ml LVAd ap4: 29.7 cm2 LVAd ap2: 25.7 cm2 LAV(MOD-bp) Indexed: 24.1 ml/m2 LVLd ap4: 7.6 cm LVLd ap2: 7.3 cm LAV(MOD-sp2): 48.5 ml EDV(MOD-sp4): 93.6 ml EDV(MOD-sp2): 74.2 ml LAV(MOD-sp4): 47.7 ml EDV(sp4-el): 97.9 ml EDV(sp2-el): 77.3 ml LVAs ap4: 17.3 cm2 LVAs ap2: 15.4 cm2 LVLs ap4: 6.2 cm LVLs ap2: 6.4 cm ESV(MOD-sp4): 41.3 ml ESV(MOD-sp2): 32.5 ml ESV(sp4-el): 41.3 ml ESV(sp2-el): 31.3 ml EF(MOD-sp4): 55.8 % EF(MOD-sp2): 56.2 % EF(sp4-el): 57.8 % SV(MOD-sp4): 52.2 ml SV(MOD-sp2): 41.7 ml SV(sp4-el): 56.6 ml SI(MOD-sp4): 25.7 ml/m2 SI(MOD-sp2): 20.5 ml/m2 LA A4 area: 16.5 cm2 LA dimension(2D): 3.9 cm RA A4 area: 13.9 cm2 TAPSE: 2.0 cm Time Measurements MV dec time: 0.15 sec Doppler Measurements & Calculations MV E max grover: 77.2 cm/sec Lat Peak E' Grover: 12.9 cm/sec Med Peak E' Grover: 9.7 cm/sec MV A max grover: 53.5 cm/sec E/E' lat: 6.0 E/E' med: 8.0 MV E/A: 1.4 MV V2 max: 71.7 cm/sec MV P1/2t max grover: 62.6 cm/sec Ao V2 max: 96.4 cm/sec MV max P.1 mmHg MV P1/2t: 38.5 msec Ao max P.7 mmHg MV V2 mean: 37.6 cm/sec Ao V2 mean: 68.0 cm/sec MV mean P.67 mmHg MV dec slope: 475.3 cm/sec2 Ao mean P.1 mmHg MV V2 VTI: 21.6 cm MVA(P1/2t): 5.7 cm2 Ao V2 VTI: 21.9 cm AV (velocity ratio): 0.83 LV V1 max: 85.9 cm/sec PA V2 max: 70.0 cm/sec TR max grover: 219.1 cm/sec LV V1 max P.0 mmHg PA V2 mean: 50.1 cm/sec TR max P.2 mmHg LV V1 mean P.5 mmHg LV V1 mean: 57.5 cm/sec LV V1 VTI: 18.2 cm ECHO/Echo Complete Interpretation Summary The LV ejection fraction is 60 %. Ordering Physician: Darci Bell Referring Physician: Deana Gutiérrez Performed By: Giulia Hernandez, F[place], RVT
--- NOTE | 2025-05-07 09:41 | STRESSREP_ITS ---
Stress Test Report Date: 05/07/2025 Procedure: Exercise tolerance test/imaging study Indications: Chest pain Consent: Per the patient Procedure: The patient exercised on a Raul protocol for 7 minutes achieving a peak heart rate of 150 bpm (88% predicted maximal heart rate) with a peak blood pressure 148/70 mmHg and a peak MET capacity of 10.1 METs. The baseline ECG demonstrated sinus rhythm. The peak exercise ECG showed sinus tachycardia with no ischemic changes. There were no cardiac dysrhythmias pretest, during exercise, or recovery. The functional capacity was considered average. There was no chest pain reported during exercise or recovery however shortness of breath was reported. The examination was discontinued secondary to target heart rate being achieved and shortness of breath. The patient was injected with 11.8 mCi of technetium 99m Cardiolite and subsequently rest SPECT Cardiolite nuclear imaging was obtained in the horizontal long, vertical long, and short axis views. Post-exercise, the patient was injected with 34.4 mCi of technetium 99m Cardiolite and subsequently stress SPECT Cardiolite nuclear imaging was obtained in the horizontal long, vertical long, and short axis views. A gated Cardiolite study at peak stress was obtained. Rest and stress SPECT Cardiolite nuclear imaging status post realignment, normalization, and attenuation correction, demonstrates a small reversible perfusion defect of the apex that suggests mild apical ischemia. There is end systolic thickening and brightening. The gated Cardiolite study demonstrates myocardial thickening and inward wall motion. The reported LVEF is 57%. Impression: 1. Technically adequate (percent predicted maximal heart rate greater than 85%) exercise tolerance test 2. Peak exercise ECG with no diagnostic ischemic changes 3. There were no cardiac dysrhythmias pretest, during exercise, or recovery 4. Rest and stress SPECT Cardiolite nuclear imaging demonstrate small reversible apical perfusion defect suggestive of mild apical ischemia. 5. The gated Cardiolite study reports an LVEF of 57%. This note was generated with [employer] software. It may contain incorrect words, spelling, and punctuation that were not noted in checking the note before signing.
== END | disposition home or self-care (01) ==
PROVIDERS: PCP Family Medicine; Referring Provider Internal Medicine Cardiovascular Disease; Visit Provider Internal Medicine Cardiovascular Disease
DX: R07.9 Chest pain, unspecified (principal); R06.09 Other forms of dyspnea
CPT/HCPCS: 78452; 93017; 93306; A9500; A4216

== ENCOUNTER → 2025-08-12 | Outpatient (CLI) | payer BC, SELFPAY ==
--- NOTE | 2025-08-12 14:01 | RAD_ITS ---
PROCEDURE: CHEST PA AND LATERAL 08/12/2025 REASON FOR EXAM: PRE-OPERATIVE: C TECHNIQUE: Procedure Code: RADCXR Modality: DX Procedure: CHEST PA AND LATERAL COMPARISON: None FINDINGS: Left lower lobe opacity likely reflecting subsegmental atelectasis. No pleural effusion or pneumothorax. Cardiac silhouette is within normal limits. No acute fractures. RAD/Chest PA and Lateral IMPRESSION: Left lower lobe opacity likely reflecting subsegmental atelectasis. Reading Location: [id number]
--- NOTE | 2025-08-12 14:01 | RAD_ITS ---
PROCEDURE: CHEST PA AND LATERAL 08/12/2025 REASON FOR EXAM: PRE-OPERATIVE: C TECHNIQUE: Procedure Code: RADCXR Modality: DX Procedure: CHEST PA AND LATERAL COMPARISON: None FINDINGS: Left lower lobe opacity likely reflecting subsegmental atelectasis. No pleural effusion or pneumothorax. Cardiac silhouette is within normal limits. No acute fractures. RAD/Chest PA and Lateral IMPRESSION: Left lower lobe opacity likely reflecting subsegmental atelectasis. Reading Location: [id number]
[2025-08-12 18:39] LABS: Hematocrit 43.1 % (40-54); Hemoglobin 14.3 g/dL (13.0-16.5); Immature Granulocytes Count 0.030 X10^3/uL (0.0-0.0); Mean Corp Hgb Conc 33.2 g/dL (32-36); Mean Corpuscular Volume 94.7 fL (80-94); Mean Platelet Vol. 12.0 fl (6.2-12.0); NRBC Flagged by Analyzer 0 % (0-5); Platelet Count 228 K/mm3 (150-450); RBC Distribution Width CV 13.2 % (11.6-14.6); RBC Distribution Width SD 45.9 fl (35.1-43.9); Red Blood Count 4.55 M/mm3 (4.6-6.2); White Blood Count 8.5 K/mm3 (4.4-11.0)
[2025-08-12 19:09] LABS: Anion Gap 12 (5-15); BUN 22 mg/dL (4-19); BUN/Creat Ratio 21.5 RATIO (10-20); Calcium,Total 9.5 mg/dL (7.6-11.0); Carbon Dioxide 26.2 mmol/L (21.0-32.0); Chloride 101 mmol/L (98-108); Glucose 96 mg/dL (70-99); Potassium 4.7 mmol/L (3.3-5.1)
== END | disposition home or self-care (01) ==
LOC: MTLAB 14:01
PROVIDERS: PCP Family Medicine; Referring Provider Nurse Practitioner Family; Visit Provider Nurse Practitioner Family
DX: R94.39 Abnormal result of other cardiovascular function study (principal); R06.09 Other forms of dyspnea; I10 Essential (primary) hypertension
CPT/HCPCS: 36415; 71046; 80048; 85025

== ENCOUNTER 2025-08-19 11:43 | Observation (INO) | payer BC, SELFPAY ==
--- NOTE | 2025-08-14 12:18 | HP.PCM_ITS ---
History and Physical Date of Admission: 08/19/25 This gentleman has a past medical history significant for dyslipidemia and hypertension. Also has history of premature coronary artery disease with his father undergoing CABG surgery at age 56. He has been referred to us for his complaints of dyspnea on exertion and chest pain. Per patient, few weeks ago, he woke up in the middle of the night with sharp anterior chest discomfort. This was unrelenting and was relieved only when he took some ibuprofen. Per patient, he also gets occasional left-sided chest discomfort which he describes as a knuckle. This is not related to exertion. No radiation to the arm neck or jaw. No associated diaphoresis. No associated shortness of breath. For the past some time, patient does describe dyspnea with moderate to strenuous exertion. Denies any orthopnea. No PND. No ankle edema. 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 Required: No Accompanied by: Self Is patient in pain?: Yes (bilateral shoulders 50/10) Allergies Influenza Virus Vaccines Allergy (Unknown, Verified 03/31/25 10:03) Other clavulanic acid (From Augmentin) Adverse Reaction (Severe, Verified 03/31/25 10:03) Nausea/Vom/Diarrhea atorvastatin (From Lipitor) Adverse Reaction (Unknown, Verified 03/31/25 10:03) NEEDS FOLLOW-UP Medications: See EMR Have you fallen in the past year?: No PFSH Medical History Cerebral ischemia Chest pain Hemorrhoids History of renal calculi Hyperlipidemia Hypertension Kidney stone Vitamin D deficiency Wears hearing aid Surgical History History of lithotripsy History of vasectomy Family History Father Heart disease Hypertension Mother Cancer Sister Lupus (systemic lupus erythematosus) Brother Rheumatoid arthritis Grandfather Colon cancer Social History household members: spouse 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 Present separately) Exacerbation: rest Relieving: rest (for dull pain) and other (ibuprofen and water for HS sharp pain) Palpitations: No Edema: None Muscle aches with walking: None Resp Respiratory: Positive for SOB with activity (improved); Negative for SOB at rest or SOB orthopnea\SOB lying down GI GI: Positive for nausea (separate from chest pains; worsened recently); Negative vomiting or heartburn Musc Musc: Positive for joint pain; Negative for muscle aches/ myalgia, muscle weakness or balance problems Neuro Neuro: Positive for lightheadedness (occasional per pt); Negative for dizziness, near syncope, syncope, headache(s) or weakness Endo Endo: Positive for fatigue Cardiology Exam Const Appearance: comfortable and no acute distress Nutritional Appearance: well nourished Neck Neck: no JVD Carotids: Negative bruit Chest Auscultation: Bilateral: Clear to Auscultation Cardio Rate: regular rate Rhythm: regular rhythm Heart sounds: S1 normal and S2 normal Neuro General: patient alert, patient awake and patient oriented x3 Extremities Lower Extremity Edema: None: Bilateral Supplemental Info Supplemental Information Stress test from 05/07/2025: Impression: 1. Technically adequate (percent predicted maximal heart rate greater than 85%) exercise tolerance test 2. Peak exercise ECG with no diagnostic ischemic changes 3. There were no cardiac dysrhythmias pretest, during exercise, or recovery 4. Rest and stress SPECT Cardiolite nuclear imaging demonstrate small reversible apical perfusion defect suggestive of mild apical ischemia. 5. The gated Cardiolite study reports an LVEF of 57%. Echocardiogram from 05/07/2025: Interpretation Summary The LV ejection fraction is 60 %. Assessment and Plan Assessment and Plan (1) Dyspnea on exertion: Status: Chronic Plan: On account of his shortness of breath and risk factors, he underwent an echocardiogram and stress test in April 2025. Based on stress test results, it was recommended to proceed with coronary CTA. This was denied by his insurance. He will thus proceed with heart catheterization to assess further. Depending on results, further recommendation be made. (2) Chest pain: Status: Chronic Plan: Patient will proceed with heart catheterization given shortness of breath, chest pain, and strong family history of coronary artery disease. (3) Hypertension: Status: Chronic Plan: He will continue current medical therapy. (4) Dyslipidemia: Status: Chronic Plan: This is monitored with primary care provider. He will continue Crestor therapy.
[2025-08-18 11:15] VITALS: BMI 30.9
[2025-08-19] VITALS (9 sets, daily range): BP systolic 109–146; BP diastolic 75–96; PULSE 60–71; RESP 14–17; TEMP 36.2–36.6; O2SAT 99–100; BMI 32.3
--- OUTSIDE RECORDS SUMMARY | 2025-08-19 07:36 | XMS RPT_ITS | CCD ---
Author Organization [facility] Care Team Providers Care Marine Superintendent Name Role Phone Dr. Deana Gutiérrez Primary Care Provider Dr. Deana Gutiérrez Referring Provider [phone] Mckayla SOL, SWETA Costa Attending Provider Dr. Bishnu Garcia Attending Provider Marla FERNÁNDEZ, Dr. Leblanc Primary Care Provider [phone] Marla FERNÁNDEZ, Dr. Leblanc Referring Provider Ray FERNÁNDEZ, Dr. Bejarano Attending Provider Dr. Darci Bell MD Referring Provider Ray FERNÁNDEZ, Dr. Bejarano Other Provider Flower Pérez Attending Provider [phone] Deana Gutiérrez Primary Care Unavailable Deana Gutiérrez Attending Unavailable Deana Gutiérrez Referring Unavailable Deana Gutiérrez Primary Care Unavailable Flower Jones NP Attending Unavailable Darci Bell Attending Unavailable Darci Bell Referring Unavailable Ray, Darci Consulting Unavailable Deana Gutiérrez Primary Care Unavailable Deana Gutiérrez Primary Care Unavailable Ray, Darci Consulting Unavailable Ray, Darci Attending Unavailable Ray, Darci Referring Unavailable Bishnu Garcia Attending Unavailable Deana Gutiérrez Primary Care Unavailable Deana Gutiérrez Referring Unavailable Ray, Darci Attending Unavailable Marilynedel, Deana Primary Care Unavailable Miedel Deana Referring Unavailable Deana Gutiérrez Primary Care Unavailable RayDarci ward Attending Unavailable Ray, Darci Referring Unavailable Ray, Darci Attending Unavailable Ray, Darci Referring Unavailable [facility], Deana Primary Care Unavailable Deed, Deana Primary Care Unavailable Roof, Rajan H Attending Unavailable Roof, Rajan H Referring Unavailable Roof, Rajan H Attending Unavailable Roof, Rajan H Referring Unavailable Deed, Deana Primary Care Unavailable Allergies Allergy Classification Reported Allergen(s) Allergy Type Date of Onset Reaction(s) Facility (4 sources) Clavulanate Drug Allergy 3 Nausea/Vom/Diar mell [facility] (2 sources) atorvastatin Drug Allergy 5 NEEDS FOLLOW-UP [facility] (2 sources) Influenza Vaccines Allergy to substance 5 Other [facility] (1 source) atorvastatin Drug Allergy 5 [facility] (1 source) Clavulanate Drug Allergy 5 [facility] (1 source) Influenza Virus Vaccines Drug allergy (disorder) 5 [facility] Medications Current Medications Medication Drug Class(es) Dates Sig (Normalized) Sig (Original) aspirin 81 mg delayed release oral tablet (7 sources) Platelet Aggregation Inhibitor, Nonsteroidal Anti-inflammatory Drug Start: 06-06-2018 take 1 tablet by mouth once daily Aspirin 81 MG tablet,delayed release (DR/EC) Active 81 mg PO DAILY June 06, 2018 12:00am BLOOD THINNER cetirizine hydrochloride 10 mg oral capsule (7 sources) Histamine-1 Receptor Antagonist Start: 02-22-2014 take 1 capsule by mouth at bedtime Cetirizine 10 MG capsule Active 10 mg PO AT BEDTIME February 22, 2014 12:00am ALLERGIES/NAUSEA cholecalciferol 0.125 mg oral capsule (9 sources) Vitamin D Start: 03-31-2025 take 1 capsule by mouth once daily Cholecalciferol (Vitamin D3) 125 mcg (5,000 unit) capsule Active 125 ug PO daily March 31, 2025 12:00am Start: 02-22-2014 End: 03-31-2025 take 1 tablet by mouth at bedtime Cholecalciferol (Vitamin D3) 2,000 UNIT tablet Discontinued 2000 U PO AT BEDTIME February 22, 2014 12:00am March 31, 2025 10:04am SUPPLEMENT ibuprofen 200 mg oral capsule (7 sources) Nonsteroidal Anti-inflammatory Drug Start: 01-16-2020 Ibuprofen 200 MG capsule Active 200 mg PO NEEDED as needed for Pain Or Fever January 16, 2020 12:00am losartan potassium 25 mg oral tablet (2 sources) Angiotensin 2 Receptor Amparo Start: 03-20-2025 take 1 tablet by mouth once daily Losartan 25 mg tablet Active 25 mg PO daily March 20, 2025 12:00am Multivitamin tablet (2 sources) Start: 03-31-2025 Multivitamin tablet Active 1 {tbl} PO daily March 31, 2025 12:00am rosuvastatin calcium 10 mg oral tablet (4 sources) HMG-CoA Reductase Inhibitor Start: 09-26-2023 take 1 tablet by mouth once daily Rosuvastatin (Crestor) 10 mg tablet Active 10 mg PO DAILY September 26, 2023 1:00am sildenafil 20 mg oral tablet (2 sources) Phosphodiesterase 5 Inhibitor Start: 03-20-2025 Sildenafil (Pulm.Hypertensio n) 20 mg tablet Active 20 mg PO .other as needed March 20, 2025 12:00am Take 5 tablets 30 minutes before intercourse as needed Completed/Discontinued Medications Medication Drug Class(es) Dates Sig (Normalized) Sig (Original) acetaminophen 325 mg / HYDROcodone bitartrate 5 mg oral tablet (7 sources) Opioid Agonist Start: 01-17-2020 End: 01-22-2020 Hydrocodone-Acetami nophen 1 EACH tablet Discontinued 1 NMA PO EVERY 4 HOURS NEEDED as needed for Pain Score 1-10/10 14 5 0 January 17, 2020 January 21, 2020 12:00am January 22, 2020 12:07am Personal history of urinary calculi Start: 01-17-2020 End: 01-22-2020 Hydrocodone-Acetaminophen Di scontinued 1 EACH PO EVERY 4 HOURS NEEDED 14 5 January 17, 2020 January 21, 2020 11:07pm amitriptyline hydrochloride 10 mg oral tablet (15 sources) Tricyclic Antidepressant Start: 06-06-2018 End: 10-28-2024 take 1 tablet by mouth at bedtime Amitriptyline 10 mg tablet Discontinued 10 mg PO AT BEDTIME 30 9 January 18, 2024 11:00am October 28, 2024 3:00pm amLODIPine 10 mg oral tablet (2 sources) Dihydropyridine Calcium Channel Amparo Start: 01-18-2024 End: 10-28-2024 take 1 tablet by mouth once daily Amlodipine 10 mg tablet Discontinued 10 mg PO DAILY 30 January 18, 2024 12:00am October 28, 2024 2:56pm 1 ml erenumab-aooe 70 mg/ml auto-injector (4 sources) Start: 09-26-2023 End: 01-18-2024 Erenumab-Aooe (Aimovig Autoinjector) 70 mg/mL auto-injector Discontinued 70 mg SC EVERY MONTH 1 September 26, 2023 1:00am January 18, 2024 10:57am ondansetron 4 mg oral tablet (4 sources) Serotonin-3 Receptor Antagonist Start: 09-26-2023 End: 10-28-2024 take 1 tablet by mouth three times daily as needed for nausea and vomiting Ondansetron Hcl 4 mg tablet Discontinued 4 mg PO THREE TIMES A DAY as needed for nausea and vomiting 90 September 26, 2023 1:00am October 28, 2024 2:56pm rimegepant 75 mg disintegrating oral tablet (3 sources) Start: 10-09-2023 End: 01-18-2024 take 1 tablet by mouth once daily as needed for headache Rimegepant (Nurtec Odt) 75 mg tablet,disintegrat ing Discontinued 75 mg PO DAILY as needed for migraine headache 16 October 09, 2023 1:00am January 18, 2024 10:57am topiramate 50 mg oral tablet (7 sources) Start: 06-06-2018 End: 09-26-2023 take 1 tablet by mouth at bedtime Topiramate 50 MG tablet Discontinued 50 mg PO AT BEDTIME June 06, 2018 12:00am September 26, 2023 10:57am MIGRAINES ubrogepant 100 mg oral tablet (4 sources) Start: 09-26-2023 End: 10-09-2023 take 1 tablet by mouth once daily as needed for headache Ubrogepant (Ubrelvy) 100 mg tablet Discontinued 100 mg PO DAILY as needed for migraine headache 16 September 26, 2023 1:00am October 09, 2023 5:10pm divalproex sodium 500 mg delayed release oral tablet (12 sources) Mood Stabilizer, Anti-epileptic Agent Start: 09-26-2023 End: 10-28-2024 take 1 tablet by mouth at bedtime Divalproex (Depakote) 500 mg tablet,delayed release (DR/EC) Discontinued 500 mg PO AT BEDTIME 30 January 18, 2024 11:00am October 28, 2024 3:00pm Start: 09-26-2023 End: 09-26-2023 take 1 tablet by mouth once Divalproex (Depakote) 500 mg tablet,delayed release (DR/EC) Discontinued 500 mg PO ONCE September 26, 2023 1:00am September 26, 2023 8:12pm Problems Active Problems Problem Classification Problem Date Documented Date Episodic/Chronic Disorders of lipid metabolism (7 sources) Dyslipidemia; Translations: [Hyperlipidemia, unspecified] Onset: 03-31-2025 03-31-2025 Chronic Essential hypertension (6 sources) Hypertensive disorder; Translations: [Essential (primary) hypertension] Onset: 03-31-2025 03-20-2025 Chronic Genitourinary symptoms and ill-defined conditions (7 sources) Dysuria; Translations: [Dysuria] 12-11-2018 Episodic Headache; including migraine (6 sources) Migraine without aura; Translations: [Migraine without aura, not intractable, without status migrainosus] 09-26-2023 Chronic Nonspecific chest pain (6 sources) Chest pain; Translations: [Chest pain, unspecified] Onset: 05-30-2025 03-31-2025 Episodic Nutritional deficiencies (2 sources) Vitamin D deficiency; Translations: [Vitamin D deficiency, unspecified] 03-20-2025 Chronic Other and ill-defined cerebrovascular disease (4 sources) Cerebrovascular disease; Translations: [Cerebrovascular disease, unspecified] 09-26-2023 Chronic Other and ill-defined cerebrovascular disease (2 sources) Cerebrovascular disease, unspecified; Translations: [Unspecified cerebrovascular disease] 09-26-2023 Chronic Other lower respiratory disease (4 sources) Dyspnea on exertion; Translations: [Other forms of dyspnea] 03-31-2025 Episodic Other lower respiratory disease (2 sources) Other forms of dyspnea; Translations: [Other forms of dyspnea] Onset: 03-31-2025 Episodic Other male genital disorders (5 sources) Male erectile dysfunction, unspecified; Translations: [Erectile dysfunction] Onset: 03-31-2025 03-31-2025 Chronic Other screening for suspected conditions (not mental disorders or infectious disease) (1 source) Abnormal result of other cardiovascular function study; Translations: [Abnormal result of other cardiovascular function study] Onset: 08-18-2025 Episodic Residual codes; unclassified (4 sources) Sleep apnea; Translations: [Sleep apnea, unspecified] 09-26-2023 Chronic Residual codes; unclassified (2 sources) Sleep apnea, unspecified; Translations: [Unspecified sleep apnea] 09-26-2023 Chronic Past or Other Problems Problem Classification Problem Date Documented Da te Episodic/Chronic Spondylosis; intervertebral disc disorders; other back problems (1 source) Pain in thoracic spine; Translations: [Pain in thoracic spine] Onset: 12-02-2024 Episodic Results Test Name Value Interpretation Reference Range Facility Basic Metabolic Profile (BMP )on 08-12-2025 BUN/CRE 21.5 RATIO High 08-18 [facility] Comment on above: Performed By: #### L 500.2500, L100.0100 #### [facility] [address] [place], [address] Calcium [Mass/Vol] 9.5 mg/dL Normal 7.6-11.[address] [facility] Comment on above: Performed By: #### L 500.2500, L100.0100 #### [facility] [address] [place], [address] Chloride [Moles/Vol] 101 mmol/L Normal 98-108 [facility] Comment on above: Performed By: #### L 500.2500, L100.0100 #### [facility] [address] [place], [address] CO2 [Moles/Vol] 26.2 mmol/L Normal 21.0-32.0 [facility] Comment on above: Performed By: #### L 500.2500, L100.0100 #### [facility] [address] [place], [address] Creatinine [Mass/Vol] 1.04 mg/dL Normal 0.70-1.20 [facility] Comment on above: Performed By: #### L 500.2500, L100.0100 #### [facility] [address] [place], [address] GAP 12 Normal 5-15 [facility] Comment on above: Performed By: #### L 500.2500, L100.0100 #### [facility] [address] [place], [address] GFR/1.73 sq M.predicted among non-blacks MDRD (S/P/Bld) [Vol rate/Area] 87 mL/min/{1.73_m2} Normal >60 [facility] Comment on above: Result Comment: mL/m in/1.73m2 CKD-EPI Creatinine Equation (2020) Performed By: #### L 500.2500, L100.0100 #### [facility] [address] [place], [address] Glucose [Mass/Vol] 96 mg/dL Normal 70-[address] [facility] Comment on above: Performed By: #### L 500.2500, L100.0100 #### [facility] [address] [place], [address] Potassium [Moles/Vol] 4.7 mmol/L Normal 3.3-5.1 [facility] Comment on above: Performed By: #### L 500.2500, L100.0100 #### [facility] [address] [place], [address] Sodium [Moles/Vol] 139 mmol/L Normal 133-[address] [facility] Comment on above: Performed By: #### L 500.2500, L100.0100 #### [facility] [address] [place], [address] Urea nitrogen [Mass/Vol] 22 mg/dL High 4-19 [facility] Comment on above: Performed By: #### L 500.2500, L100.0100 #### [facility] [address] [place], [address] CBC W/Diff, Automatedon 10-1 -2024 Absolute Lymph 2.49 X10 3/uL Normal 0.83-4.51 [facility] Comment on above: Performed By: #### L 500.2500, L100.0100 #### [facility] [address] [place], [address] Absolute Neut 5.2 X10 3/uL Normal 2.0-7.7 [facility] Comment on above: Performed By: #### L 500.2500, L100.0100 #### [facility] [address] [place], [address] Basophils/100 WBC (Bld) 0.6 % Normal 0-1 [facility] Comment on above: Performed By: #### L 500.2500, L100.0100 #### [facility] [address] [place], [address] Eosinophils/100 WBC (Bld) 0.7 % Normal 0-5 [facility] Comment on above: Performed By: #### L 500.2500, L100.0100 #### [facility] [address] [place], [address] Erythrocyte distribution width (RBC) [Ratio] 13.2 % Normal 11.6-14.6 [facility] Comment on above: Performed By: #### L 500.2500, L100.0100 #### [facility] [address] [place], [address] Hematocrit (Bld) [Volume fraction] 43.1 % Normal 40-54 [facility] Comment on above: Performed By: #### L 500.2500, L100.0100 #### [facility] [address] [place], [address] Hemoglobin (Bld) [Mass/Vol] 14.3 g/dL Normal 13.0-16.5 [facility] Comment on above: Performed By: #### L 500.2500, L100.0100 #### [facility] [address] [place], [address] IG% 0.400 Normal 0.0-0.9 [facility] Comment on above: Result Comment: IG% - Immature Granulocytes (promyelocytes, myelocytes and metamyelocytes) > 1% indicates that a LEFT SHIFT is Present. Performed By: #### L 500.2500, L100.0100 #### [facility] [address] [place], [address] Lymphocytes/100 WBC (Bld) 29.2 % Normal 19-41 [facility] Comment on above: Performed By: #### L 500.2500, L100.0100 #### [facility] [address] [place], [address] MCH (RBC) [Entitic mass] 31.4 pg Normal 27.0-32.0 [facility] Comment on above: Performed By: #### L 500.2500, L100.0100 #### [facility] [address] [place], [address] MCHC (RBC) [Mass/Vol] 33.2 g/dL Normal 32-36 [facility] Comment on above: Performed By: #### L 500.2500, L100.0100 #### [facility] [address] [place], [address] MCV (RBC) [Entitic vol] 94.7 fL High 80-94 [facility] Comment on above: Performed By: #### L 500.2500, L100.0100 #### [facility] [address] [place], [address] Monocytes/100 WBC (Bld) 8.4 % Normal 0-10 [facility] Comment on above: Performed By: #### L 500.2500, L100.0100 #### [facility] [address] [place], [address] Neutrophils/100 WBC (Bld) 60.7 % Normal 47-70 [facility] Comment on above: Performed By: #### L 500.2500, L100.0100 #### [facility] [address] [place], [address] Nucleated RBC (Bld) [#/Vol] 0 10*3/uL Normal 0-5 [facility] Comment on above: Performed By: #### L 500.2500, L100.0100 #### [facility] [address] [place], [address] Platelet mean volume (Bld) [Entitic vol] 12.0 fL Normal 6.2-12.0 [facility] Comment on above: Performed By: #### L 500.2500, L100.0100 #### [facility] [address] [place], [address] Platelets (Bld) [#/Vol] 228 10*3/uL Normal 150-450 [facility] Comment on above: Performed By: #### L 500.2500, L100.0100 #### [facility] [address] [place], [address] RBC (Bld) [#/Vol] 4.55 10*6/uL Low 4.6-6.2 [facility] Comment on above: Performed By: #### L 500.2500, L100.0100 #### [facility] [address] [place], [address] RDW SD 45.9 fl High 35.1-43.9 [facility] Comment on above: Performed By: #### L 500.2500, L100.0100 #### [facility] [address] [place], [address] WBC (Bld) [#/Vol] 8.5 10*3/uL Normal 4.4-11.[address] [facility] Comment on above: Performed By: #### L 500.2500, L100.0100 #### [facility] [address] [place], [address] Chest PA and Lateralon 08-12 Chest PA and Lateral [facility] [address] [place] [address] Chest PA and Lateral MR#: [id number] Acct: [id number] Name: JULIANA YEN Rep #: [id number] : 1975 M 49 From: Fercho Arguello PCP: Dr. Deana Gutiérrez MD Status: REG CLI Study: Chest PA and Lateral Date of Exam: 08/12/25 Exam# [id number] Ordering Dr: Rajan De Anda NP REGISTERED RADIOGRAPHER-C PROCEDURE: CHEST PA AND LATERAL 08/12/2025 REASON FOR EXAM: PRE-OPERATIVE: [facility] TECHNIQUE: Procedure Code: RADCXR Modality: DX Procedure: CHEST PA AND LATERAL COMPARISON: None FINDINGS: Left lower lobe opacity likely reflecting subsegmental atelectasis. No pleural effusion or pneumothorax. Cardiac silhouette is within normal limits. No acute fractures. RAD/Chest PA and Lateral IMPRESSION: Left lower lobe opacity likely reflecting subsegmental atelectasis. Reading Location: [id number] CC: REGISTERED RADIOGRAPHER-C Rajan De Anda; Dr. Deana Gutiérrez MD Print Shop Helper: Signed Normal [facility] Echocardiogram study reportO rdered By: Darci Bell on 05-12-2025 Study report [facility] [address] [place] [address] Echo Complete 05/07/25 0930 MR#: [id number] Acct: [id number] Name: JULIANA YEN Rep #:[id number] : 1975 49 From: Darci Bell MD Attending Dr: Dr. Darci Bell MD Status: REG CLI Ordering Dr: Darci Bell MD Date: Location: [facility] Sex: M C Admitted: Reason For Study Reason For Study: CHEST PAIN Procedure This was a 2D Doppler, Color Flow transthoracic echocardiogram. Exam performed in department. Left Ventricle Normal size and thickness. The LV ejection fraction is 60 %. Normal diastololic function. Right Ventricle Normal right ventricle. Atria The left and right atria are normal. Mitral Valve Trivial mitral valve insufficiency. Tricuspid Valve Trivial tricuspid valve insufficiency. Normal pulmonary artery pressure. Aortic Valve Trisinus/trileaflet aortic valve. Pulmonic Valve The pulmonic valve is not well visualized. Trivial pulmonic valve insufficiency. Great Vessels Normal sized aortic root. Pericardium/Pleural No pericardial effusion. MMode/2D Measurements & Calculations LVIDd: 4.7 cm IVSd: 0.90 cm Ao root diam: 3.4 cm LVIDs: 3.4 cm LVPWd: 0.93 cm RVDd: 3.3 cm FS: 28.2 % LAV(MOD-bp): 49.0 ml LVAd ap4: 29.7 cm2 LVAd ap2: 25.7 cm2 LAV(MOD-bp) Indexed: 24.1 ml/m2 LVLd ap4: 7.6 cm LVLd ap2: 7.3 cm LAV(MOD-sp2): 48.5 ml EDV(MOD-sp4): 93.6 ml EDV(MOD-sp2): 74.2 ml LAV(MOD-sp4): 47.7 ml EDV(sp4-el): 97.9 ml EDV(sp2-el): 77.3 ml LVAs ap4: 17.3 cm2 LVAs ap2: 15.4 cm2 LVLs ap4: 6.2 cm LVLs ap2: 6.4 cm ESV(MOD-sp4): 41.3 ml ESV(MOD-sp2): 32.5 ml ESV(sp4-el): 41.3 ml ESV(sp2-el): 31.3 ml EF(MOD-sp4): 55.8 % EF(MOD-sp2): 56.2 % EF(sp4-el): 57.8 % SV(MOD-sp4): 52.2 ml SV(MOD-sp2): 41.7 ml SV(sp4-el): 56.6 ml SI(MOD-sp4): 25.7 ml/m2 SI(MOD-sp2): 20.5 ml/m2 LA A4 area: 16.5 cm2 LA dimension(2D): 3.9 cm RA A4 area: 13.9 cm2 TAPSE: 2.0 cm Time Measurements MV dec time: 0.15 sec Doppler Measurements & Calculations MV E max chavez: 77.2 cm/sec Lat Peak E' Chavez: 12.9 cm/sec Med Peak E' Chavez: 9.7 cm/sec MV A max chavez: 53.5 cm/sec E/E' lat: 6.0 E/E' med: 8.0 MV E/A: 1.4 MV V2 max: 71.7 cm/sec MV P1/2t max chavez: 62.6 cm/sec Ao V2 max: 96.4 cm/sec MV max P.1 mmHg MV P1/2t: 38.5 msec Ao max P.7 mmHg MV V2 mean: 37.6 cm/sec Ao V2 mean: 68.0 cm/sec MV mean P.67 mmHg MV dec slope: 475.3 cm/sec2 Ao mean P.1 mmHg MV V2 VTI: 21.6 cm MVA(P1/2t): 5.7 cm2 Ao V2 VTI: 21.9 cm AV (velocity ratio): 0.83 LV V1 max: 85.9 cm/sec PA V2 max: 70.0 cm/sec TR max chavez: 219.1 cm/sec LV V1 max P.0 mmHg PA V2 mean: 50.1 cm/sec TR max P.2 mmHg LV V1 mean P.5 mmHg LV V1 mean: 57.5 cm/sec LV V1 VTI: 18.2 cm ECHO/Echo Complete Interpretation Summary The LV ejection fraction is 60 %. Ordering Physician: Darci Bell Referring Physician: Deana Gutiérrez Performed By: Giulia Hernandez, [place], RVT 05/12/25 1003 Date _ Darci Bell MD CC: Dr. Darci Bell MD; Dr. Deana Gutiérrez MD ~ Date Dictated: 05/07/25929 Date Transcribed: 05/12/25 1003 Print Shop Helper: Signed [facility] Work Phone: Cardiovascular stress test r eportOrdered By: Darci Bell on 05-07-2025 Study report [facility] [address] [place] [address] MR#: [id number] Acct: [id number] Name: JULIANA YEN Rep #: [id number] : 1975 49 From: Darci Bell MD Primary Care: Dr. Deana Gutiérrez MD Statu s: REG CLI Referring Dr: Darci Bell MD Sex: M C Stress Test Report Date: 05/07/2025 Procedure: Exercise tolerance test/imaging study Indications: Chest pain Consent: Per the patient Procedure: The patient exercised on a Raul protocol for 7 minutes achieving a peak heart rate of 150 bpm (88% predicted maximal heart rate) with a peak blood pressure 148/70 mmHg and a peak MET capacity of 10.1 METs. The baseline ECG demonstrated sinus rhythm. The peak exercise ECG showed sinus tachycardia with no ischemic changes. There were no cardiac dysrhythmias pretest, during exercise, or recovery. The functional capacity was considered average. There was no chest pain reported during exercise or recovery however shortness of breath was reported. The examination was discontinued secondary to target heart rate being achieved and shortness of breath. The patient was injected with 11.8 mCi of technetium 99m Cardiolite and subsequently rest SPECT Cardiolite nuclear imaging was obtained in the horizontal long, vertical long, and short axis views. Post-exercise, the patientwas injected with 34.4 mCi of technetium 99m Cardiolite and subsequently stress SPECT Cardiolite nuclear imaging was obtained in the horizontal long, vertical long, and short axis views. A gated Cardiolite study at peak stress was obtained. Rest and stress SPECT Cardiolite nuclear imaging status post realignment, normalization, and attenuation correction, demonstrates a small reversible perfusion defect of the apex that suggests mild apical ischemia. There is end systolic thickening and brightening. The gated Cardiolite study demonstrates myocardial thickening and inward wall motion. The reported LVEF is 57%. Impression: 1. Technically adequate (percent predicted maximal heart rate greater than 85%)exercise tolerance test 2. Peak exercise ECG with no diagnostic ischemic changes 3. There were no cardiac dysrhythmias pretest, during exercise, or recovery 4. Rest and stress SPECT Cardiolite nuclear imaging demonstrate small reversible apical perfusion defect suggestive of mild apical ischemia. 5. The gated Cardiolite study reports an LVEF of 57%. This note was generated with [employer] software. It may contain incorrectwords, spelling, and punctuation that were not noted in checking the note beforesigning. 05/07/25943 Date _ Darci Bell MD CC: Dr. Darci Bell MD; Dr. Deana Gutiérrez MD ~ Date Dictated: 05/07/25940 Date Transcribed: 05/07/25940 Print Shop Helper: STACIE Hutchison [facility] Work Phone: Echo Completeon 05-07-2025 Echo Complete [facility] [address] [place] [address] Echo Complete 05/07/25929 MR#: [id number] Acct: [id number] Name: JULIANA YEN Rep #: [id number] : 1975 49 From: Darci Bell MD Attending Dr: Dr. Darci Bell MD Status: REG I Ordering Dr: Darci Bell MD Date: 05/07/25 Location: [facility] Sex: M C Admitted: Reason For Study Reason For Study: CHEST PAIN Procedure This was a 2D Doppler, Color Flow transthoracic echocardiogram. Exam performed in department. Left Ventricle Normal size and thickness. The LV ejection fraction is 60 %. Normal diastololic function. Right Ventricle Normal right ventricle. Atria The left and right atria are normal. Mitral Valve Trivial mitral valve insufficiency. Tricuspid Valve Trivial tricuspid valve insufficiency. Normal pulmonary artery pressure. Aortic Valve Trisinus/trileaflet aortic valve. Pulmonic Valve The pulmonic valve is not well visualized. Trivial pulmonic valve insufficiency. Great Vessels Normal sized aortic root. Pericardium/Pleural No pericardial effusion. MMode/2D Measurements Calculations LVIDd: 4.7 cm IVSd: 0.90 cm Ao root diam: 3.4 cm LVIDs: 3.4 cm LVPWd: 0.93 cm RVDd: 3.3 cm FS: 28.2 % LAV(MOD-bp): 49.0 ml LVAd ap4: 29.7 cm2 LVAd ap2: 25.7 cm2 LAV(MOD-bp) Indexed: 24.1 ml/m2 LVLd ap4: 7.6 cm LVLd ap2: 7.3 cm LAV(MOD-sp2): 48.5 ml EDV(MOD-sp4): 93.6 ml EDV(MOD-sp2): 74.2 ml LAV(MOD-sp4): 47.7 ml EDV(sp4-el): 97.9 ml EDV(sp2-el): 77.3 ml LVAs ap4: 17.3 cm2 LVAs ap2: 15.4 cm2 LVLs ap4: 6.2 cm LVLs ap2: 6.4 cm ESV(MOD-sp4): 41.3 ml ESV(MOD-sp2): 32.5 ml ESV(sp4-el): 41.3 ml ESV(sp2-el): 31.3 ml EF(MOD-sp4): 55.8 % EF(MOD-sp2): 56.2 % EF(sp4-el): 57.8 % SV(MOD-sp4): 52.2 ml SV(MOD-sp2): 41.7 ml SV(sp4-el): 56.6 ml SI(MOD-sp4): 25.7 ml/m2 SI(MOD-sp2): 20.5 ml/m2 LA A4 area: 16.5 cm2 LA dimension(2D): 3.9 cm RA A4 area: 13.9 cm2 TAPSE: 2.0 cm Time Measurements MV dec time: 0.15 sec Doppler Measurements Calculations MV E max chavez: 77.2 cm/sec Lat Peak E' Chavez: 12.9 cm/sec Med Peak E' Chavez: 9.7 cm/sec MV A max chavez: 53.5 cm/sec E/E' lat: 6.0 E/E' med: 8.0 MV E/A: 1.4 MV V2 max: 71.7 cm/sec MV P1/2t max chavez: 62.6 cm/sec Ao V2 max: 96.4 cm/sec MV max P.1 mmHg MV P1/2t: 38.5 msec Ao max P.7 mmHg MV V2 mean: 37.6 cm/sec Ao V2 mean: 68.0 cm/sec MV mean P.67 mmHg MV dec slope: 475.3 cm/sec2 Ao mean P.1 mmHg MV V2 VTI: 21.6 cm MVA(P1/2t): 5.7 cm2 Ao V2 VTI: 21.9 cm AV (velocity ratio): 0.83 LV V1 max: 85.9 cm/sec PA V2 max: 70.0 cm/sec TR max chavez: 219.1 cm/sec LV V1 max P.0 mmHg PA V2 mean: 50.1 cm/sec TR max P.2 mmHg LV V1 mean P.5 mmHg LV V1 mean: 57.5 cm/sec LV V1 VTI: 18.2 cm ECHO/Echo Complete Interpretation Summary The LV ejection fraction is 60 %. Ordering Physician: Darci Bell Referring Physician: Deana Gutiérrez Performed By: Giulia Hernandez, RDCS, RVT 05/12/25 1003 Date Darci Bell MD CC: Dr. Darci Bell MD; Dr. Deana Gutiérrez MD Date Dictated: 05/07/25929 Date Transcribed: 05/12/25 1003 Print Shop Helper: Signed Normal [facility] Stress Reporton 05-07-2025 Stress Report [facility] Cardiovascular Services [address] [place] [address] MR#: [id number] Acct: [id number] Name: JULIANA YEN Rep #: [id number] : 1975 49 From: Darci Bell MD Primary Care: Dr. Deana Gutiérrez MD Status: REG CLI Referring Dr: Darci Bell MD Sex: M C Stress Test Report Date: 05/07/2025 Procedure: Exercise tolerance test/imaging study Indications: Chest pain Consent: Per the patient Procedure: The patient exercised on a Raul protocol for 7 minutes achieving a peak heart rate of 150 bpm (88% predicted maximal heart rate) with a peak blood pressure 148/70 mmHg and a peak MET capacity of 10.1 METs. The baseline ECG demonstrated sinus rhythm. The peak exercise ECG showed sinus tachycardia with no ischemic changes. There were no cardiac dysrhythmias pretest, during exercise, or recovery. The functional capacity was considered average. There was no chest pain reported during exercise or recovery however shortness of breath was reported. The examination was discontinued secondary to target heart rate being achieved and shortness of breath. The patient was injected with 11.8 mCi of technetium 99m Cardiolite and subsequently rest SPECT Cardiolite nuclear imaging was obtained in the horizontal long, vertical long, and short axis views. Post-exercise, the patient was injected with 34.4 mCi of technetium 99m Cardiolite and subsequently stress SPECT Cardiolite nuclear imaging was obtained in the horizontal long, vertical long, and short axis views. A gated Cardiolite study at peak stress was obtained. Rest and stress SPECT Cardiolite nuclear imaging status post realignment, normalization, and attenuation correction, demonstrates a small reversible perfusion defect of the apex that suggests mild apical ischemia. There is end systolic thickening and brightening. The gated Cardiolite study demonstrates myocardial thickening and inward wall motion. The reported LVEF is 57%. Impression: 1. Technically adequate (percent predicted maximal heart rate greater than 85%) exercise tolerance test 2. Peak exercise ECG with no diagnostic ischemic changes 3. There were no cardiac dysrhythmias pretest, during exercise, or recovery 4. Rest and stress SPECT Cardiolite nuclear imaging demonstrate small reversible apical perfusion defect suggestive of mild apical ischemia. 5. The gated Cardiolite study reports an LVEF of 57%. This note was generated with [employer] software. It may contain incorrect words, spelling, and punctuation that were not noted in checking the note before signing. 05/07/2544 Date Darci Bell MD CC: Dr. Darci Bell MD; Dr. Deana Gutiérrez MD Date Dictated: 05/07/25940 Date Transcribed: 05/07/25940 Print Shop Helper: STACIE Signed Normal [facility] Cardiology Visit Reporton Cardiology Visit Report [facility] Heart [address] [place] [address] OFFICE VISIT Date of Service: 03/31/25 MR#: [id number] Acct: [id number] Name: JULIANA YEN Rep #: [id number] : 1975 Provider: Dr. Darci Bell MD Age/Sex: 49/M [place] [facility] Status: Signed HPI HPI History of Present Illness Details: This gentleman has a past medical history significant for dyslipidemia and hypertension. Also has history of premature coronary artery disease with his father undergoing CABG surgery at age 56. He has been referred to us for his complaints of dyspnea on exertion and chest pain. Per patient, few weeks ago, he woke up in the middle of the night with sharp anterior chest discomfort. This was unrelenting and was relieved only when he took some ibuprofen. Per patient, he also gets occasional left-sided chest discomfort which he describes as a knuckle. This is not related to exertion. No radiation to the arm neck or jaw. No associated diaphoresis. No associated shortness of breath. For the past some time, patient does describe dyspnea with moderate to strenuous exertion. Denies any orthopnea. No PND. No ankle edema. 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 Required: No Accompanied by: Self Is patient in pain?: Yes (bilateral shoulders 50/10) Allergies Influenza Virus Vaccines Allergy (Unknown, Verified 03/31/25 10:03) Other clavulanic acid (From Augmentin) Adverse Reaction (Severe, Verified 03/31/25 10:03) Nausea/Vom/Diarrhea atorvastatin (From Lipitor) Adverse Reaction (Unknown, Verified 03/31/25 10:03) NEEDS FOLLOW-UP Medications ???Medication ???Instructions ???Recorded ???Confirmed ???Type cetirizine 10 mg capsule 10 mg PO QHS ALLERGIES/NAUSEA 04/2 04/12 06/02/25 History aspirin 81 mg tablet,delayed 81 mg PO DAILY BLOOD THINNER 06/0603/31/25 History release ibuprofen 200 mg capsule 200 mg PO PRN PRN Pain Or Fever 03/31/25 History rosuvastatin 10 mg tablet (Crestor) 10 mg PO DAILY 09/26/23 5 History amitriptyline 10 mg tablet 10 mg PO QHS #90 tabs 10/28/2412/24 Rx divalproex 500 mg tablet,delayed 500 mg PO QHS #90 tabs 10/28/24 Rx release (Depakote) losartan 25 mg tablet 25 mg PO QDAY 03/20/25 03/31/25 Hi story sildenafil (pulm.hypertension) 20 20 mg PO .other PRN 03/20/2512/24 History mg tablet cholecalciferol (vitamin D3) 125 125 mcg PO QDAY 03/31/25 03/31/25 History mcg (5,000 unit) capsule multivitamin 1 tab PO QDAY 03/31/25 03/31/25 Hi story Have you fallen in the past year?: No PFSH Medical History Cerebral ischemia Chest pain Hemorrhoids History of renal calculi Hyperlipidemia Hypertension Kidney stone Vitamin D deficiency Wears hearing aid Surgical History History of lithotripsy History of vasectomy Family History Father Heart disease Hypertension Mother Cancer Sister Lupus (systemic lupus erythematosus) Brother Rheumatoid arthritis Grandfather Colon cancer Social History household members: spouse 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 Present separately) Exacerbation: rest Relieving: rest (for dull pain) and other (ibuprofen and water for HS sharp pain) Palpitations: No Edema: None Muscle aches with walking: None Resp Respiratory: Positive for SOB with activity (improved); Negative for SOB at rest or SOB orthopnea SOB lying down GI GI: Positive for nausea (separate from chest pains; worsened recently); Negative vomiting or heartburn Musc Musc: Positive for joint pain; Negative for muscle aches/ myalgia, muscle weakness or balance problems Neuro Neuro: Positive for lighthea (more content not included)... Normal [facility] Neurology Visit Reporton Neurology Visit Report [facility] [address], [address] [place] [address] OFFICE VISIT Date of Service: 10/28/24 MR#: [id number] Acct: [id number] Name: JULIANA YEN Rep #: [id number] : 1975 Provider: Dr. Bishnu franz MD Age/Sex: 48/M [place] [facility] Status: Signed HPI HPI Chief Complaint: Est Care Details: Interim History: Interim History: Juliana returns for follow-up visit. He has a history of hyperlipidemia, renal calculi (secondary to prior topiramate therapy), motor/verbal tic disorder, and hypertension. He began to experience headaches when he was a teenager. During his teenage years, his headaches were generally mild and intermittent. In adulthood, his headaches became more severe. His headaches are pressure and dull in character and are primarily localized to the right frontal and left temporal head regions. He experiences associated photophobia, phonophobia and nausea. Since he was a teenager, he has also had ice pick headaches in the right frontal and left temporal region. Emotional stress is a trigger for his headaches. He was initially treated with topiramate and this was effective. His headaches decreased in frequency to about 1 day/month, however he developed renal calculi as a side effect to topiramate and topiramate was discontinued. Around 2019, divalproex ER 500 mg nightly was initiated and this was of initial benefit for headache prophylaxis however in 2022 and earlier in 2023 he had an increase in his headache frequency and was experiencing headaches on nearly a daily basis. Ibuprofen 400 mg daily as needed has been of benefit for his headaches. He has been taking amitriptyline 10 mg nightly since around 2015 for headache prophylaxis and this was of some benefit. Aimovig was not of benefit. Ubrelvy 100 mg was not of benefit. Amlodipine for headache prophylaxis was not well-tolerated (caused increased headaches) and was discontinued. He is currently taking amitriptyline 10 mg nightly and divalproex ER 500 mg nightly and has had improvement of his headache control. He now has about 2 days of headache per week. Individual headaches last 1 day or less each, his headaches are generally mild. He feels the need to take [id number] ibuprofen about twice per month for his headaches. In years past, he was diagnosed with sleep apnea. He felt this had improved after having significant weight loss during the time he was treated with topiramate. He has not used CPAP. A subsequent unattended sleep study in September 2023 did not reveal evidence of sleep apnea. He has some neck stiffness. He reported having diffuse joint pains primarily affecting the elbows, shoulders, feet, and sternal region. He stated that prior rheumatologic work-up by his primary care provider was unrevealing. The patient states that on evaluation by certified adaptive physical educator, he was not felt to have arthritis and no rheumatology follow-up was scheduled. He denied having dizziness or lightheadedness. He experiences motion sickness and nausea when he travels by car and has used scopolamine patch. He has chronic bilateral hearing loss that he attributed to noise exposure during his prior employment. He uses hearing aids. He has a history of easy anger and irritability. He reported having some depression and anxiety. Since he was 13 years old, he has had motor tics manifesting with head turning and has also had verbal tics manifesting with sniffing. These episodes occur 1 or more times per day and are triggered by emotional stress. Haloperidol was prescribed for his tic disorder however this caused significant weight gain and was subsequently discontinued. He reported experiencing transient blurring of vision that typically occurs during the day. A head MRI from 2014 revealed mild to moderate bilateral subcortical white matter chronic small vessel ischemic disease. He does not have any history of clinically manifest stroke. His head MRI from September 2023 reveals mild to moderate bilateral subcortical white matter chronic small vessel ischemic disease. His evaluation for hypercoagulable state was negative. He reported having irritable bowel syndrome. He gained 59 pounds from 2019 to December 2023 however since December 2023 he has lost about 7 pounds. He attributed his weight gain, at least in part, to treatment with divalproex ER. Ondansetron caused increased nausea and was discontinued. Physical Exam: Neuro: The patient is awake and alert and responds appropriately Heart: Regular rhythm; tachycardia Supplemental Info Head MRI (09/15/2015): FINDINGS: Normal size of the ventricles and extra-axial spaces for the patient's age. There are multiple foci of subcortical and periventricular FLAIR hyperintensities some of these foci are juxtacortical. There is no evidence of enhancement or restricted diffusion to suggest active demyelination. Normal bilateral basa (more content not included)... Normal [facility] Thoracic Spine 3 Viewson Thoracic Spine [address] [facility] Imaging Services [address] [place] [id number] Thoracic Spine 3 Views MR#: [id number] Acct: [id number] Name: JULIANA YEN Rep #: [id number] : 1975 M 48 From: Moy Silverio MD PCP: Dr. Deana Gutiérerz MD Status: REG [facility] Study: Thoracic Spine 3 Views Date of Exam: 10/11/24 Exam# [id number] Ordering Dr: Deana Gutiérrez MD 4:[id number] EXAM: XR THORACIC SPINE, 3 VIEWS CLINICAL INDICATION: Pain in thoracic spine TECHNIQUE: Frontal, lateral and swimmer''s views of the thoracic spine. COMPARISON: No relevant prior studies available. FINDINGS: VERTEBRAE: Unremarkable. Preserved vertebral body height. No fracture. No spondylolisthesis. Preservation of the normal thoracic kyphosis. No significant facet arthropathy. DISC SPACES: Mild degenerative changes of the intervertebral discs. RAD/Thoracic Spine 3 Views IMPRESSION: 1. No acute injuries identified involving the thoracic spine. 2. Mild degenerative changes. Electronically Signed: Moy Silverio MD at 11:56 EST , CC: Dr. Deana Gutiérrez MD Print Shop Helper: Signed Normal [facility] Basophil percentageOrdered B y: Bishnu Garcia on 09-27-2023 Bilirubin [Mass/Vol] 0.50 mg/dL 0.20-1.00 [facility] Comment on above: For patients on eltr ombopag therapy, use of [facility] TBIL is not recommended. Chloride [Moles/Vol] 104 mmol/L 98-107 [facility] Glucose [Mass/Vol] 97 mg/dL 74-[address] [facility] Potassium [Moles/Vol] 4.2 mmol/L 3.5-5.1 [facility] Protein [Mass/Vol] 7.7 g/dL 6.4-8.[address] [facility] Sodium [Moles/Vol] 138 mmol/L 136-[address] [facility] WBC (Bld) [#/Vol] 7.5 10*3/uL 4.4-11.[address] [facility] Blood erythrocytes count (nu mber/volume)Ordered By: Bishnu Garcia on 09-27-2023 RBC (Bld) [#/Vol] 4.95 10*6/uL 4.6-6.2 [facility] Blood hemoglobin measurement (mass/volume)Ordered By: Bishnu Garcia on 09-27-2023 Hemoglobin (Bld) [Mass/Vol] 15.4 g/dL 13.0-16.5 [facility] Blood or tissue coagulation factor II targeted mutation analysis by molecular geneticOrdered By: Bishnu Garcia on 09-27-2023 F2 gene targeted mutation analysis [employer] Nom (Bld/Tiss) Comment . [facility] Comment on above: Result: c.*97G>A - N ot DetectedThis result is not associated with an increased risk for venousthromboembolism. See Additional Clinical Information andComments.Additional Clinical Information:Venous thromboembolism is a multifactorial disease influenced bygenetic, environmental, and circumstantial risk factors. The c.*97G>Avariant in the F2 gene is a genetic risk factor for venousthromboembolism. Heterozygous carriers have a 2- to 4-fold increasedrisk for venous thromboembolism. Homozygotes for the c.*97G>A variantare rare. The annual risk of VTE in homozygotes has been reported nichole 1.1%/year. Individuals who carry both a c.*97G>A variant in theF2 gene and a c.1601G>A (p. [id number]) variant in the F5 gene(commonly referred to as Factor V Leiden) have an approximately 20-fold increased risk for venous thromboembolism. Risks are likely nichole even higher in more complex genotype combinations involving theF2 c.*97G>A variant and Factor V Leiden (PMID: 12792882). Additionalrisk factors include but are not limited to: deficiency of protein C,protein S, or antithrombin III, age, male sex, personal or familyhistory of deep vein thromboembolism, smoking, surgery, prolongedimmobilization, malignant neoplasm, tamoxifen treatment, raloxifenetreatment, oral contraceptive use, hormone replacement therapy, andpregnancy. Management of thrombotic risk and thrombotic events shouldfollow established guidelines and fit the clinical circumstance. Thisresult cannot predict the occurrence or recurrence of a thromboticevent.Comments:Genetic counseling is recommended to discuss the potential clinicalimplications of positive results, as well as recommendations fortesting family members.Genetic Coordinators are available for health care providers to discussresults at [phone] [phone]Test Details:Variant analyzed: c.*97G>A, previously referred to as [id number]/Limitations:DNA analysis of the F2 gene (NM_000506.5) was performed by PCRamplification followed by restriction enzyme analysis. The diagnosticsensitivity is >99%. Results must be combined with clinicalinformation for the most accurate interpretation. Molecular-basedtesting is highly accurate, but as in any laboratory test, diagnosticerrors may occur. False positive or false negative results may occurfor reasons that include genetic variants, blood transfusions, bonemarrow transplantation, somatic or tissue-specific mosaicism,mislabeled samples, or erroneous representation of familyrelationships.This test was developed and its performance characteristics determinedby [employer]. It has not been cleared or approved by the Food and DrugAdministration.References:Tae Chawla, Mckenzie SANABRIA, Shamar R, Sharon WW, Sheldon JH; [facility] ProfessionalPractice and Guidelines Committee. Addendum: [employer] [employer] consensus statement on factor V Leiden mutationtesting. Cyndy Med. 2020Jan 01. doi: 10.1038/n61226-602-15121-n.PMID: 90416516.Deborah ACOSTA. Prothrombin Thrombophilia. 2005May 23[Updated 2020Dec 03]. In: Pablo MP, Agus HH, Gege RA, et al.,editors. Fifi(R) [Internet]. [place] ([place]): [facility]; 1167-0384. Available from:https://www.ncbi.nlm.nih.gov/books/ZIV9464/Maikol Chawla, Mckenzie SANABRIA, Andrea X, Saad B, Nicholas EB, Nessa P, Abraham CS;[facility] Laboratory Strategic Planning Analyst Committee. Venous thromboembolismlaboratory testing (factor V Leiden and factor II c.*97G>A),2018 update: a technical standard of the [employer] and Genomics ([employer]). Cyndy Med. 2017;20(12):1410-8476.doi: 10.1038/e41098-855-1268-b. Epub 2017Aug 03. PMID: 33445684. Blood platelet mean volumeOr dered By: Bishnu Garcia on 09-27-2023 Platelet mean volume (Bld) [Entitic vol] 11.8 fL 6.2-12.0 [facility] Determination of erythrocyte mean corpuscular volume (MCV)Ordered By: Bishnu Garcia on 09-27-2023 MCV (RBC) [Entitic vol] 94.5 fL 80-94 [facility] Dilute Ac's viper venom timeOrdered By: Bishnu Garcia on 09-27-2023 dRVVT Coag (PPP) [Time] 125.4 s 0.0-47.0 [facility] dRVVT Coag (PPP) [Time] 37.9 s 0.0-40.4 [facility] Erythrocyte sedimentation ra teOrdered By: Bishnu Garcia on 09-27-2023 ESR (Bld) [Velocity] 2 mm/h 0-20 [facility] Functional protein C measure mentOrdered By: Bishnu Garcia on 09-27-2023 Protein C actual/normal Chromogenic method (PPP) [Rel catalytic activity/Vol] 126 % 73-180 [facility] Comment on above: Performed at: BN - [facility] [address] [id number] Director: Marcia Melendez MD, Phone: [phone] at: [facility] [address] [id number] Director: Noé Boyle PhD, Phone: [phone] at: TG - [employer] [id number] [place], [place] [id number] Director: Roseanne Baker [facility], Phone: [phone] Hematocrit Auto (Bld) [Volum e fraction]Ordered By: Bishnu Garcia on 09-27-2023 Hematocrit (Bld) [Volume fraction] 46.8 % 40-54 [facility] Laboratory - Chemistry and C hemistry - challengeOrdered By: Bishnu Garcia on 09-27-2023 ALP [Catalytic activity/Vol] 93 U/L 45-117 [facility] ALT [Catalytic activity/Vol] 13 U/L 16-61 [facility] CO2 [Moles/Vol] 28.0 mmol/L 21.0-32.0 [facility] Globulin (S) [Mass/Vol] 3.8 g/dL 2.2-4.2 [facility] Magnesium [Mass/Vol] 2.3 mg/dL 1.6-2.6 [facility] Urea nitrogen/Creatinine [Mass ratio] 15.5 mg/mg 10-20 [facility] Laboratory - Hematology and Cell countsOrdered By: Bishnu Garcia on 09-27-2023 Erythrocyte distribution width (RBC) [Entitic vol] 45.4 fL 35.1-43.9 [facility] Erythrocyte distribution width (RBC) [Ratio] 13.1 % 11.6-14.6 [facility] MCH (RBC) [Entitic mass] 31.1 pg 27.0-32.0 [facility] Auto (RBC) [Mass/Vol]Or dered By: Bishnunathen Garcia on 09-27-2023 MCHC (RBC) [Mass/Vol] 32.9 g/dL 32-36 [facility] No Panel InformationOrdered By: Bishnu Garcia on 09-27-2023 Anti-Cardiolipin IgM Antibody < 9 MPL U/mL 0-12 [facility] Comment on above: Negative: <13 Indete rminate: 13 - 20 Low-Med Positive: >20 - 80 High Positive: >80 Estimated GFR (MDRD) Amer 91 mL/min >60 [facility] Comment on above: GFR Calc Estimated GFR (MDRD) Non-Af Amer 75 mL/min >60 [facility] Comment on above: Non- GFR Calc Factor V Leiden Mutation Comment . [facility] Comment on above: Result: c.1601G>A (p .[id number]) - Not DetectedThis result is not associated with an increased risk for venousthromboembolism. See Additional Clinical Information andComments.Additional Clinical Information:Venous thromboembolism is a multifactorial diseaseinfluenced by genetic, environmental, and circumstantialrisk factors. The c.1601G>A (p. [id number]) variant in theF5 gene, commonly referred to as Factor V Leiden, is agenetic risk factor for venous thromboembolism.Heterozygous carriers of this variant have a 6- to 8-foldincreased risk for venous thromboembolism. Individualshomozygous for this variant (ie, with a copy of the varianton each chromosome) have an approximately 80-fold increasedrisk for venous thromboembolism. Individuals who carry sofia c.*97G>A variant in the F2 gene and Factor V Leiden havean approximately 20-fold increased risk for venousthromboembolism. Risks are likely to be even higher in morecomplex genotype combinations involving the F2 c.*97G>Avariant and Factor V Leiden (PMID: 28528215). Additionalrisk factors include but are not limited to: deficiency ofprotein C, protein S, or antithrombin III, age, male sex,personal or family history of deep vein thromboembolism,smoking, surgery, prolonged immobilization, malignantneoplasm, tamoxifen treatment, raloxifene treatment, oralcontraceptive use, hormone replacement therapy, andpregnancy. Management of thrombotic risk and thromboticevents should follow established guidelines and fit theclinical circumstance. This result cannot predict theoccurrence or recurrence of a thrombotic event.Comment:Genetic counseling is recommended to discuss thepotential clinical implications of positive results, aswell as recommendations for testing family members.Genetic Coordinators are available for health careproviders to discuss results at [phone] Details:Variant Analyzed: c.1601G>A (p. [id number]), referred toas Factor V LeidenMethods/Limitations:DNA analysis of the F5 gene (NM_000130.5) was performedby PCR amplification followed by restriction enzymeanalysis. The diagnostic sensitivity is >99%. Results mustbe combined with clinical information for the most accurateinterpretation. Molecular-based testing is highly accurate,but as in any laboratory test, diagnostic errors may occur.False positive or false negative results may occur forreasons that include genetic variants, blood transfusions,bone marrow transplantation, somatic or tissue-specificmosaicism, mislabeled samples, or erroneous representationof family relationships.This test was developed and its performance characteristicsdetermined by [employer]. It has not been cleared orapproved by the Food and Drug Administration.References:Tae Chawla, Mckenzie SANABRIA, Shamar R, Sharon WW, Sheldon JORGE; [facility] SYSTEMProfessional Practice and Guidelines Committee. Addendum:[employer] consensus statement onfactor V Leiden mutation testing. Cyndy Med. 2020Jan 01.doi: 10.1038/o42671-814-58051-w. PMID: 33697483.Deborah ACOSTA. Factor V Leiden Thrombophilia. 1998March 12(Updated 2017Nov 02). In: Pablo MP, Agus HH, Gege RA,et al., editors. Fifi(R) (Internet). [place] ([place]):[facility], [place]; 1768-0293. Availablefrom: https://www.ncbi.nlm.nih.gov/books/NMD2590/Maikol Chawla, Mckenzie SANABRIA, Andrea X, Saad B, Nicholas EB, Nessa P,Abraham CS; [facility] Laboratory Strategic Planning Analyst Committee.Venous thromboembolism laboratory testing (factor V Leidenand factor II c.*97G>A), 2018 update: a technical standardof the [employer]). Cyndy Med. 2018 Sep;20(12):0317-1721. doi:10.1038/i36319-471-1547-r. Epub 2017Aug 03. PMID: 03327154. Total Complement (CH50) > 60 U/mL >41 [facility] Comment on above: Age Male Female 1 - 30 days Not Estab. Not Estab. 31 days - 6 months >32 >20 7 months - 17 years >39 >39 >17 years >41 >41 NOTE: The adult (>17 years) reference interval range is used to flag abnormals on this report. If the patient is 17 years old or younger, use the table above to determine out of range values. Platelet poor plasma antithr ombin actual/normal ratio by chromogenic method (relativeOrdered By: Bishnu Garcia on 09-27-2023 Antithrombin actual/normal Chromogenic method (PPP) [Rel catalytic activity/Vol] 123 % 75-135 [facility] Comment on above: Direct Xa inhibitor anticoagulants such as rivaroxaban,apixaban and edoxaban will lead to spuriously elevatedantithrombin activity levels possibly masking a deficiency. Platelet poor plasma antithr ombin antigen detection by immunoassayOrdered By: Bishnu Garcia on 09-27-2023 Antithrombin Ag IA Ql (PPP) 130 % 72-124 [facility] Comment on above: This test was develo ped and its performance characteristicsdetermined by [employer]. It has not been cleared orapproved by the Food and Drug Administration. Platelet poor plasma protein S actual/normal ratio (relative time)Ordered By: Bishnu Garcia on 09-27-2023 Protein S actual/normal Coag (PPP) [Relative time] 95 % 63-140 [facility] Comment on above: Protein S activity m ay be falsely increased (masking anabnormal, low result) in patients receiving direct Xainhibitor (e.g., rivaroxaban, apixaban, edoxaban) or adirect thrombin inhibitor (e.g., dabigatran) anticoagulanttreatment due to assay interference by these drugs. Platelets bldOrdered By: Joe Garcia on 09-27-2023 Platelets (Bld) [#/Vol] 247 10*3/uL 150-450 [facility] Protein C antigen assayOrder ed By: Bishnu Garcia on 09-27-2023 Protein C Ag actual/normal IA (PPP) [Relative mass conc] 127 % 60-150 [facility] Protein S measurement in magda telet poor plasma by coagulation assay (units/volume)Ordered By: Bishnu Garcia on 09-27-2023 Protein S Coag Qn (PPP) 222 % 60-150 [facility] Comment on above: This test was develo ped and its performance characteristicsdetermined by [employer]. It has not been cleared orapproved by the Food and Drug Administration.Total Protein S Antigen is an acute phase reactant proteinand can be elevated in inflammatory states. Protein S, freeOrdered By: Sheyla Garcia on 09-27-2023 Protein S Free Ag IA Qn (PPP) 115 % 61-136 [facility] Serum cardiolipin IgG antibo dy assay by immunoassay (units/volume)Ordered By: Bishnu Garcia on 09-27-2023 Cardiolipin IgG IA Qn (S) < 9 GPL U/mL 0-14 [facility] Comment on above: Negative: <15 Indete rminate: 15 - 20 Low-Med Positive: >20 - 80 High Positive: >80 Serum or plasma albumin florence urement (mass/volume)Ordered By: Bishnu Garcia on 09-27-2023 Albumin [Mass/Vol] 3.9 g/dL 3.2-5.[address] [facility] Serum or plasma albumin/glob ulin mass ratioOrdered By: Bishnu Garcia on 09-27-2023 Albumin/Globulin [Mass ratio] 1.0 {ratio} 0.9-2.4 [facility] Serum or plasma calcium florence urement (mass/volume)Ordered By: Bishnu Garcia on 09-27-2023 Calcium [Mass/Vol] 8.9 mg/dL 8.5-10.[address] [facility] Serum or plasma cardiolipin IgA antibody assay (units/volume)Ordered By: Bishnu Garcia on 09-27-2023 Cardiolipin IgA Qn < 9 APL U/mL 0-11 [facility] Comment on above: Negative: <12 Indete rminate: 12 - 20 Low-Med Positive: >20 - 80 High Positive: >80 Serum or plasma complement C 3 measurement (mass/volume)Ordered By: Bishnu Garcia on 09-27-2023 Complement C3 [Mass/Vol] 140 mg/dL 82-167 [facility] Serum or plasma complement C 4 measurement (mass/volume)Ordered By: Bishnu Garcia on 09-27-2023 Complement C4 [Mass/Vol] 34 mg/dL 12-38 [facility] Serum or plasma creatinine m easurement (mass/volume)Ordered By: Bishnu Garcia on 09-27-2023 Creatinine [Mass/Vol] 1.10 mg/dL 0.70-1.30 [facility] Comment on above: The validity of the calculated GFR & GFRAA in patients over 70 years has not been determined. Clinical correlation is essential. Serum or plasma urea nitroge n measurement (mass/volume)Ordered By: Bishnu Garcia on 09-27-2023 Urea nitrogen [Mass/Vol] 17 mg/dL 7-18 [facility] Thin prep Papanicolaou smear with manual screeningOrdered By: Bishnu Garcia on 09-27-2023 Thin prep Papanicolaou smear with manual screening 15 U/L 15-37 [facility] Thin prep Papanicolaou smear with manual screening 6 5-15 [facility] Thin prep Papanicolaou smear with manual screening 40.4 sec 0.0-47.6 [facility] Thin prep Papanicolaou smear with manual screening 1.13 Ratio 0.00-1.34 [facility] Thin prep Papanicolaou smear with manual screening 38.4 sec 0.0-43.5 [facility] Thin prep Papanicolaou smear with manual screening Comment: . [facility] Comment on above: No lupus anticoagula nt was detected. An extended dRVVT that corrects onmixing with normal plasma can be caused by a deficiency of one of thecommon pathway factors (X, V, II or fibrinogen). Thrombin time in platelet po or plasmaOrdered By: Bishnu Garcia on 09-27-2023 Thrombin time Coag (PPP) [Time] 22.2 sec 0.0-23.0 [facility] Erythrocyte sedimentation ra teOrdered By: Deana Gutiérrez on 09-15-2023 ESR (Bld) [Velocity] 2 mm/h 0-20 [facility] No Panel InformationOrdered By: Deana Gutiérrez on 09-15-2023 Anti-Nuclear Antibody Screen Negative Negative [facility] Comment on above: Performed at: [address] [id number] Director: Noé Boyle PhD, Phone: [phone] Miscellaneous Test See comment [facility] Comment on above: TEST RESULTS LIMITSM uSK Abs, SerumMuSK Abs, Serum <1.0 U/mLReference Range: Negative: <1.0 Positive: 1.0 or higher A positive result, in the context of congruent clinical findings, confirms the diagnosis of autoimmune MuSK myasthenia gravis.COMMENTS: - Myasthenia gravis (MG) is caused by auto-antibodies against proteins of the neuromuscular junction. Most cases (about 90%) of generalized MG are anti- acetylcholine receptor (AChR) antibody-positive.(1) - Of generalized MG patients who lack anti-AChR antibodies (AChR-seronegative), about 40% are positive for Muscle- Specific Kinase (MuSK) antibody.(1,2) - Though a positive MuSK result is specific for the diagnosis of MuSK MG, a negative MuSK result does not rule out a MG diagnosis. - MuSK antibody levels have been shown to correlate with disease severity.(3) Serial measurements may be useful to follow treatment.References:1. Michael-Dillon S et al. J Autoimmunity 2014;52:90-100.2. Ger FARLEY et al. PNAS 2013;110(24);40639-24880.3. Lenaioni E et al. Neurology 2006;67:505-507.This test was developed and its performance characteristicsdetermined by [employer]. It has not been cleared or approvedby the Food and Drug Administration. TESTING PERFORMED AT [facility]. ORIGINAL REPORT ON FILE IN LAB CONTAINS ADDITIONAL TEST SITE INFORMATION. Serum cyclic citrullinated p eptide IgG antibody assay (units/volume)Ordered By: Deana Gutiérrez on 09-15-2023 Cyclic citrullinated peptide IgG Qn 5 units 0-19 [facility] Comment on above: Negative <20 Weak po sitive 20 - 39 Moderate positive 40 - 59 Strong positive >59Performed at: [address] [id number] Director: Noé Boyle PhD, Phone: [phone] Serum or plasma C reactive p rotein measurement (mass/volume)Ordered By: Deana Gutiérrez on 09-15-2023 CRP [Mass/Vol] mg/L 0.0-3.0 [facility] Comment on above: C-Reactive Protein ( CRP) provides useful information for thediagnosis, therapy and monitoring of inflammatory processesand associated diseases. For the evaluation of Relative Riskfor Cardiovascular Disease, a High Sensitivity CRP (HSCRP)should be ordered. Serum rheumatoid factor dete ctionOrdered By: Deana Gutiérrez on 09-15-2023 Rheumatoid factor Ql (S) < 10.0 IU/mL <15 [facility] Absolute lymphocyte countOrd ered By: Deana Gutiérrez on 06-16-2023 Lymphocytes Auto (Unsp spec) [#/Vol] 3.13 10*3/uL 0.83-4.51 [facility] Basophil percentageOrdered B y: Deana Gutiérrez on 06-16-2023 Basophils/100 WBC (Bld) 0.6 % 0-1 [facility] Bilirubin [Mass/Vol] 1.00 mg/dL 0.20-1.00 [facility] Comment on above: For patients on eltr ombopag therapy, use of [facility] TBIL is not recommended. Chloride [Moles/Vol] 104 mmol/L 98-107 [facility] Cholesterol [Mass/Vol] 170 mg/dL <200 [facility] Comment on above: <200 mg/dL Desirable 200-240 mg/dL Borderline >240 mg/dL High Risk Eosinophils/100 WBC (Bld) 1.3 % 0-5 [facility] Glucose [Mass/Vol] 101 mg/dL 74-[address] [facility] Comment on above: Fasting Glucose resu lt from 100 to 125 mg/dL suggests IMPAIRED HOMEOSTASIS per A.D.A. criteria. Neutrophils (Bld) [#/Vol] 4.6 10*3/uL 2.0-7.7 [facility] Neutrophils/100 WBC (Bld) 53.0 % 47-70 [facility] Potassium [Moles/Vol] 3.9 mmol/L 3.5-5.1 [facility] Protein [Mass/Vol] 7.5 g/dL 6.4-8.[address] [facility] Sodium [Moles/Vol] 139 mmol/L 136-[address] [facility] Triglyceride [Mass/Vol] 311 mg/dL <199 [facility] Comment on above: The drugs N-Acetylcy steine and Metamizole may falsely depress this assay.Serum Triglycerides Reference Interval Normal <150 mg/dL Borderline high 150 - 199 mg/dL High 200 - 499 mg/dL Very High > or = 500 mg/dL WBC (Bld) [#/Vol] 8.7 10*3/uL 4.4-11.[address] [facility] Blood erythrocytes count (nu mber/volume)Ordered By: Deana Gutiérrez on 06-16-2023 RBC (Bld) [#/Vol] 4.73 10*6/uL 4.6-6.2 [facility] Blood hemoglobin measurement (mass/volume)Ordered By: Deana Gutiérrez on 06-16-2023 Hemoglobin (Bld) [Mass/Vol] 14.8 g/dL 13.0-16.5 [facility] Blood lymphocytes/100 leukoc ytesOrdered By: Deana Gutiérrez on 06-16-2023 Lymphocytes/100 WBC (Bld) 36.1 % 19-41 [facility] Blood monocytes/100 leukocyt esOrdered By: Deana Gutiérrez on 06-16-2023 Monocytes/100 WBC (Bld) 8.8 % 0-10 [facility] Blood platelet mean volumeOr dered By: Deana Gutiérrez on 06-16-2023 Platelet mean volume (Bld) [Entitic vol] 11.2 fL 6.2-12.0 [facility] Determination of erythrocyte mean corpuscular volume (MCV)Ordered By: Deana Gutiérrez on 06-16-2023 MCV (RBC) [Entitic vol] 94.9 fL 80-94 [facility] Hematocrit Auto (Bld) [Volum e fraction]Ordered By: Deana Gutiérrez on 06-16-2023 Hematocrit (Bld) [Volume fraction] 44.9 % 40-54 [facility] Laboratory - Chemistry and C hemistry - challengeOrdered By: Deana Gutiérrez on 06-16-2023 ALP [Catalytic activity/Vol] 96 U/L 45-117 [facility] ALT [Catalytic activity/Vol] 21 U/L 16-61 [facility] CO2 [Moles/Vol] 28.0 mmol/L 21.0-32.0 [facility] Globulin (S) [Mass/Vol] 3.6 g/dL 2.2-4.2 [facility] Urea nitrogen/Creatinine [Mass ratio] 16.5 mg/mg 10-20 [facility] Laboratory - Hematology and Cell countsOrdered By: Deana Gutiérrez on 06-16-2023 Erythrocyte distribution width (RBC) [Entitic vol] 46.5 fL 35.1-43.9 [facility] Erythrocyte distribution width (RBC) [Ratio] 13.2 % 11.6-14.6 [facility] Immature granulocytes/100 WBC (Bld) 0.200 % 0.0-0.9 [facility] Comment on above: IG% - Immature Granu locytes (promyelocytes, myelocytes and metamyelocytes) > 1% indicates that a LEFT SHIFT is Present. MCH (RBC) [Entitic mass] 31.3 pg 27.0-32.0 [facility] Nucleated RBC/100 WBC (Bld) [Ratio] 0 % 0-5 [facility] MCHC Auto (RBC) [Mass/Vol]Or dered By: Deana Gutiérrez on 06-16-2023 MCHC (RBC) [Mass/Vol] 33.0 g/dL 32-36 [facility] No Panel InformationOrdered By: Deana Gutiérrez on 06-16-2023 Estimated GFR (MDRD) Amer 92 mL/min >60 [facility] Comment on above: GFR Calc Estimated GFR (MDRD) Non-Af Amer 76 mL/min >60 [facility] Comment on above: Non- GFR Calc Platelets bldOrdered By: Stephen Gutiérrez on 06-16-2023 Platelets (Bld) [#/Vol] 228 10*3/uL 150-450 [facility] Serum or plasma albumin florence urement (mass/volume)Ordered By: Deana Gutiérrez on 06-16-2023 Albumin [Mass/Vol] 3.9 g/dL 3.2-5.[address] [facility] Serum or plasma albumin/glob ulin mass ratioOrdered By: Deana Gutiérrez on 06-16-2023 Albumin/Globulin [Mass ratio] 1.1 {ratio} 0.9-2.4 [facility] Serum or plasma calcium florence urement (mass/volume)Ordered By: Deana Gutiérrez on 06-16-2023 Calcium [Mass/Vol] 9.2 mg/dL 8.5-10.[address] [facility] Serum or plasma cholesterol in HDL measurement (mass/volume)Ordered By: Deana Gutiérrez on 06-16-2023 Cholesterol in HDL [Mass/Vol] 39 mg/dL >40 [facility] Comment on above: The drugs N-Acetylcy steine and Metamizole may falsely depress this assay. Reference Range HDL <40 mg/dL Low HDL Cholesterol HDL >or= 60 mg/dL High HDL Cholesterol Serum or plasma cholesterol in VLDL measurement (mass/volume)Ordered By: Deana Gutiérrez on 06-16-2023 Cholesterol in VLDL [Mass/Vol] 62 mg/dL 5-40 [facility] Serum or plasma creatinine m easurement (mass/volume)Ordered By: Deana Gutiérrez on 06-16-2023 Creatinine [Mass/Vol] 1.09 mg/dL 0.70-1.30 [facility] Comment on above: The validity of the calculated GFR & GFRAA in patients over 70 years has not been determined. Clinical correlation is essential. Serum or plasma low density lipoprotein (LDL) cholesterol measurement (mass/volume)Ordered By: Deana Gutiérrez on 06-16-2023 Cholesterol in LDL [Mass/Vol] 69 mg/dL 0-130 [facility] Serum or plasma urea nitroge n measurement (mass/volume)Ordered By: Deana Gutiérrez on 06-16-2023 Urea nitrogen [Mass/Vol] 18 mg/dL 7-18 [facility] Thin prep Papanicolaou smear with manual screeningOrdered By: Deanamarimar Gutiérrez on 06-16-2023 Thin prep Papanicolaou smear with manual screening 23 U/L 15-37 [facility] Thin prep Papanicolaou smear with manual screening 7 5-15 [facility] Whole blood hemoglobin A1c/t otal hemoglobin ratio (mass fraction)Ordered By: Deana Gutiérrez on 06-16-2023 HbA1c (Bld) [Mass fraction] 5.5 % 3.8-5.6 [facility] Comment on above: Normal < 5.7 % Predi abetic 5.7 - 6.4 % Diabetic >or= 6.5 % Please note range changes. Absolute lymphocyte counton 05-09-2022 Lymphocytes Auto (Unsp spec) [#/Vol] 2.69 10*3/uL 0.83-4.51 [facility] Work Phone: Basophil percentageon 2021 Basophils/100 WBC (Bld) 0.8 % 0-1 [facility] Work Phone: Bilirubin [Mass/Vol] 0.80 mg/dL 0.20-1.00 [facility] Work Phone: Comment on above: For patients on eltr ombopag therapy, use of [facility] TBIL is not recommended. Chloride [Moles/Vol] 100 mmol/L 98-107 [facility] Work Phone: Cholesterol [Mass/Vol] 272 mg/dL <200 [facility] Work Phone: Comment on above: <200 mg/dL Desirable 200-240 mg/dL Borderline >240 mg/dL High Risk Eosinophils/100 WBC (Bld) 1.3 % 0-5 [facility] Work Phone: Glucose [Mass/Vol] 106 mg/dL 74-[address] [facility] Work Phone: Comment on above: Fasting Glucose resu lt from 100 to 125 mg/dL suggests IMPAIRED HOMEOSTASIS per A.D.A. criteria. Neutrophils (Bld) [#/Vol] 3.9 10*3/uL 2.0-7.7 [facility] Work Phone: Neutrophils/100 WBC (Bld) 50.4 % 47-70 [facility] Work Phone: Potassium [Moles/Vol] 3.7 mmol/L 3.5-5.1 [facility] Work Phone: Protein [Mass/Vol] 8.0 g/dL 6.4-8.[address] [facility] Work Phone: Sodium [Moles/Vol] 137 mmol/L 136-[address] [facility] Work Phone: Triglyceride [Mass/Vol] 242 mg/dL <199 [facility] Work Phone: Comment on above: The drugs N-Acetylcy steine and Metamizole may falsely depress this assay.Serum Triglycerides Reference Interval Normal <150 mg/dL Borderline high 150 - 199 mg/dL High 200 - 499 mg/dL Very High > or = 500 mg/dL WBC (Bld) [#/Vol] 7.7 10*3/uL 4.4-11.[address] [facility] Work Phone: Blood erythrocytes count (nu mber/volume)on 05-09-2022 RBC (Bld) [#/Vol] 4.80 10*6/uL 4.6-6.2 [facility] Work Phone: Blood hemoglobin measurement (mass/volume)on 05-09-2022 Hemoglobin (Bld) [Mass/Vol] 14.8 g/dL 13.0-16.5 [facility] Work Phone: Blood lymphocytes/100 leukoc yteson 05-09-2022 Lymphocytes/100 WBC (Bld) 34.8 % 19-41 [facility] Work Phone: [phone] Blood monocytes/100 leukocyt eson 05-09-2022 Monocytes/100 WBC (Bld) 12.4 % 0-10 [facility] Work Phone: Blood platelet mean volumeon 05-09-2022 Platelet mean volume (Bld) [Entitic vol] 10.8 fL 6.2-12.0 [facility] Work Phone: Determination of erythrocyte mean corpuscular volume (MCV)on 05-09-2022 MCV (RBC) [Entitic vol] 93.3 fL 80-94 [facility] Work Phone: Hematocrit Auto (Bld) [Volum e fraction]on 05-09-2022 Hematocrit (Bld) [Volume fraction] 44.8 % 40-54 [facility] Work Phone: Laboratory - Chemistry and C hemistry - challengeon 05-09-2022 ALP [Catalytic activity/Vol] 95 U/L 45-117 [facility] Work Phone: ALT [Catalytic activity/Vol] 22 U/L 16-61 [facility] Work Phone: CO2 [Moles/Vol] 28.0 mmol/L 21.0-32.0 [facility] Work Phone: Globulin (S) [Mass/Vol] 3.8 g/dL 2.2-4.2 [facility] Work Phone: Urea nitrogen/Creatinine [Mass ratio] 21.8 mg/mg 10-20 [facility] Work Phone: Laboratory - Hematology and Cell countson 05-09-2022 Erythrocyte distribution width (RBC) [Entitic vol] 46.1 fL 35.1-43.9 [facility] Work Phone: Erythrocyte distribution width (RBC) [Ratio] 13.5 % 11.6-14.6 [facility] Work Phone: Immature granulocytes/100 WBC (Bld) 0.300 % 0.0-0.9 [facility] Work Phone: Comment on above: IG% - Immature Granu locytes (promyelocytes, myelocytes and metamyelocytes) > 1% indicates that a LEFT SHIFT is Present. MCH (RBC) [Entitic mass] 30.8 pg 27.0-32.0 [facility] Work Phone: Nucleated RBC/100 WBC (Bld) [Ratio] 0 % 0-5 [facility] Work Phone: MCHC Auto (RBC) [Mass/Vol]on 05-09-2022 MCHC (RBC) [Mass/Vol] 33.0 g/dL 32-36 [facility] Work Phone: No Panel Informationon 05-09 Estimated GFR (MDRD) Amer 92 mL/min >60 [facility] Work Phone: Comment on above: GFR Calc Estimated GFR (MDRD) Non-Af Amer 76 mL/min >60 [facility] Work Phone: Comment on above: Non- GFR Calc Platelets bldon 05-09-2022 Platelets (Bld) [#/Vol] 241 10*3/uL 150-450 [facility] Work Phone: Serum or plasma albumin florence urement (mass/volume)on 05-09-2022 Albumin [Mass/Vol] 4.2 g/dL 3.2-5.[address] [facility] Work Phone: Serum or plasma albumin/glob ulin mass ratioon 05-09-2022 Albumin/Globulin [Mass ratio] 1.1 {ratio} 0.9-2.4 [facility] Work Phone: Serum or plasma calcium florence urement (mass/volume)on 05-09-2022 Calcium [Mass/Vol] 9.7 mg/dL 8.5-10.[address] [facility] Work Phone: Serum or plasma cholesterol in HDL measurement (mass/volume)on 05-09-2022 Cholesterol in HDL [Mass/Vol] 36 mg/dL >40 [facility] Work Phone: Comment on above: The drugs N-Acetylcy steine and Metamizole may falsely depress this assay. Reference Range HDL <40 mg/dL Low HDL Cholesterol HDL >or= 60 mg/dL High HDL Cholesterol Serum or plasma cholesterol in VLDL measurement (mass/volume)on 05-09-2022 Cholesterol in VLDL [Mass/Vol] 48 mg/dL 5-40 [facility] Work Phone: Serum or plasma creatinine m easurement (mass/volume)on 05-09-2022 Creatinine [Mass/Vol] 1.10 mg/dL 0.70-1.30 [facility] Work Phone: Comment on above: The validity of the calculated GFR & GFRAA in patients over 70 years has not been determined. Clinical correlation is essential. Serum or plasma low density lipoprotein (LDL) cholesterol measurement (mass/volume)on 05-09-2022 Cholesterol in LDL [Mass/Vol] 188 mg/dL 0-130 [facility] Work Phone: Serum or plasma urea nitroge n measurement (mass/volume)on 05-09-2022 Urea nitrogen [Mass/Vol] 24 mg/dL 7-18 [facility] [facility] Work Phone: Thin prep Papanicolaou smear with manual screeningon 05-09-2022 Thin prep Papanicolaou smear with manual screening 35 U/L 15-37 [facility] Work Phone: Thin prep Papanicolaou smear with manual screening 9 5-15 [facility] Work Phone: CNOVon 05-07-2021 CNOV Office Visit (NEMOWS ) JULIANA YEN ([id number]) 1975 M Date Time Provider Department 05/07/21 4:40 PM LEONARD ALANIS, [place] During your visit today, we recorded the following information about you: Pulse Respiration Blood pressure Weight 50/minute 12/minute 116/68 91.5 kg Clifton Beck MD 05/07/2021 5:27 PM Signed ESTABLISHED PATIENT VISIT CHIEF COMPLAINT: Follow up HISTORY OF PRESENT ILLNESS: Juliana Yen is a 45 year old male, [...] History Tobacco Use - Smoking status: Never Smoke (more content not included)... Normal [facility] Vital Signs Date Time Vital Sign Value Performing Clinician Faci lity 03-31-2025 08:09-0400 Body height 172.[address] Deana Gutiérrez MD Work Phone: [facility] 03-31-2025 08:09-0400 Body mass index (BMI) [Ratio] 30.9 kg/m2 Dr. Deana Gutiérrez MD Work Phone: [facility] 03-31-2025 08:09-0400 Body weight 92.[address] Deaan Gutiérrez MD Work Phone: [facility] 03-31-2025 08:09-0400 Diastolic blood pressure 84 mm[Hg] Dr. Deana Gutiérrez MD Work Phone: [facility] 03-31-2025 08:09-0400 Heart rate 84 /min Dr. Deana Gutiérrez MD Work Phone: [facility] 03-31-2025 08:09-0400 Respiratory rate 16 /min Dr. Deana Gutiérrez MD Work Phone: [facility] 03-31-2025 08:09-0400 Systolic blood pressure 121 mm[Hg] Dr. Deana Gutiérrez MD Work Phone: [facility] 09-26-2023 09:49-0500 Body height 172.[address] Deana Gutiérrez Work Phone: [facility] 09-26-2023 09:49-0500 Body mass index (BMI) [Ratio] 33.1 kg/m2 Dr. Deana Gutiérrez Work Phone: [facility] 09-26-2023 09:49-0500 Body temperature 98.6 [degF] Dr. Deana Gutiérrez Work Phone: [facility] 09-26-2023 09:49-0500 Body weight 98.[address] Deana Gutiérrez Work Phone: [facility] 09-26-2023 09:49-0500 Diastolic blood pressure 90 mm[Hg] Dr. Deana Gutiérrez Work Phone: [facility] 09-26-2023 09:49-0500 Heart rate 91 /min Dr. Deana Gutiérrez Work Phone: [facility] 09-26-2023 09:49-0500 Respiratory rate 17 /min Dr. Deana Gutiérrez Work Phone: [facility] 09-26-2023 09:49-0500 SaO2% (BldA) [Mass fraction] 99 % Dr. Deana Gutiérrez Work Phone: [facility] 09-26-2023 09:49-0500 Systolic blood pressure 130 mm[Hg] Dr. Deana Gutiérrez Work Phone: [facility] Encounters Encounter Date Encounter Type Care Provider Facility Start: 08-19-2025 ambulatory [facility] Facility:[facility] Start: 08-14-2025 ambulatory Darci Ray Facility:[facility] Start: 08-12-2025 ambulatory Rajan Vines Roof Facility:[facility] Start: 07-02-2025 ambulatory [facility] Facility: [facility] Start: 05-08-2025 Non-patient / Non-visit [facility] Work Phone: Start: 05-08-2025 ambulatory [facility] Facility: [facility] Start: 05-07-2025 ambulatory [facility] Facility: [facility] Start: 05-07-2025 Non-patient / Non-visit Dr. Darci dodge MD -[facility] Start: 05-07-2025 End: 05-07-[address] Deana Gutiérrez MD Work Phone: -[facility] Start: 05-07-2025 End: 05-07-[address] Darci Bell MD -[facility] Work Phone: Start: 05-07-2025 End: 05-07-2025 ambulatory [facility] Facility:[facility] Start: 03-31-2025 End: 03-31-[address] Darci Bell MD [facility] Work Phone: Start: 03-31-2025 End: 03-31-[address] Deana Gutiérrez MD Work Phone: [facility] Work Phone: Start: 10-28-2024 End: 10-28-2024 ambulatory Bishnu Garcia [facility] Start: 10-11-2024 End: 10-11-2024 ambulatory [facility] Facility:[facility] Start: 10-25-2023 End: 10-25-[address] Deana Gutiérrez Work Phone: [facility] Work Phone: Start: 10-25-2023 End: 10-25-[address] Deana Gutiérrez Work Phone: [facility] Work Phone: Start: 10-18-2023 End: 10-18-[address] Deana Gutiérrez Work Phone: [facility] Work Phone: Start: 09-27-2023 End: 09-27-[address] Deana Gutiérrez Work Phone: [facility] Work Phone: Start: 09-27-2023 End: 09-27-[address] Deana Gutiérrez Work Phone: [facility] [place] Work Phone: Start: 09-26-2023 End: 09-26-[address] Deana Gutiérrez Work Phone: [facility] Work Phone: Start: 09-15-2023 End: 09-15-[address] Deana Gutiérrez Work Phone: [facility] Work Phone: Start: 09-15-2023 End: 09-15-[address] [facility] Start: 07-18-2023 End: 07-18-[address] Deana Gutiérrez Work Phone: [facility] Work Phone: Start: 06-16-2023 End: 06-16-2023 ambulatory [facility] Work Phone: Start: 06-16-2023 End: 06-16-2023 [facility] Start: 05-09-2022 End: 05-09-2022 Patient encounter procedure [facility] Procedures Date Procedure Procedure Detail Performing Clinician Start: 05-07-2025 Radionuclide imaging of perfusion of myocardium under exercise stress Dr. Deana Gutiérrez MD Work Phone: Start: 10-18-2023 MRI of brain with contrast Dr. Deana Gutiérrez Work Phone: Plan of Treatment Date Care Activity Detail Author Start: 03-31-2025 Evaluation of diagno stic study results [facility] Start: 09-27-2023 Cardiolipin IgA and IgG and IgM panel - Serum [facility] Start: 09-27-2023 Complement C3 [Mass/ volume] in Serum or Plasma [facility] Start: 09-27-2023 Complement C4 [Mass/ volume] in Serum or Plasma [facility] Start: 09-27-2023 Complement total hem olytic CH50 [Units/volume] in Serum or Plasma [facility] Start: 09-27-2023 Factor V Leiden genotype [facility] Start: 09-27-2023 Lupus anticoagulant assay [facility] Start: 09-27-2023 Protein C [Units/vol ume] in Platelet poor plasma by Coagulation assay [facility] Start: 09-27-2023 Protein C Ag actual/ normal in Platelet poor plasma by Immunoassay [facility] Start: 09-27-2023 Protein S assay [facility] Start: 09-27-2023 Protein S function estimate [facility] Start: 09-27-2023 Targeted analysis fo r gene mutation [facility] Start: 09-27-2023 [facility] Start: 09-15-2023 Procedure [facility] Antithrombin III assay [facility] Antithrombin III ass ay, functional [facility] Cardiolipin IgA Ab [ Units/volume] in Serum by Immunoassay [facility] Cardiolipin IgG Ab [ Units/volume] in Serum or Plasma [facility] Cardiolipin IgM Ab [ Units/volume] in Serum or Plasma [facility] F5 gene mutations fo und [Identifier] in Blood or Tissue by Molecular genetics method Nominal [facility] Lupus anticoagulant neutralization platelet [Time] in Platelet poor plasma by Coagulation assay [facility] MR Brain WO and W contrast IV [facility] Partial thromboplastin time ratio [facility] Polysomnography [facility] Protein S Free Ag ac tual/normal in Platelet poor plasma by Immunoassay [facility] Protein S, functional assay [facility] Thrombin time [facility] Payers Date Payer Category Payer Unknown [id number] 2024 Self-pay [id number] 2024 Unknown [id number] 2014 Unknown [id number] Unknown [id number] Unknown [id number] Unknown [facility] PACKAGE PLAN [id number] Unknown [id number] 2.16.8 [id number] Unknown [id number] 2.16.8 [id number] Unknown [id number] 2.16.8 [id number] Unknown [id number] 2.16.8 [id number] Unknown [id number] 2.16.8 [id number] Unknown [id number] 2.16.8 [id number] Unknown [id number] 2.16.8 [id number] Unknown [id number] 2.16.8 [id number] Unknown [id number] 2.16.8 [id number] Unknown [id number] 2.16.8 [id number] Social History Date Type Detail Facility Start: 01-16-2020 End: 09-26-2023 Tobacco smoking status NHIS Unknown if ever smoked [facility] Start: 01-16-2020 Non-smoker [facility] Start: 1975 Sex Assigned At Male [facility] Start: 03-20-2025 Tobacco smoking stat us KYIS Never smoked tobacco (finding) [facility] Clinical Note 08-14-2025 Note Date & Type Note Facility 08-14-2025 Note [facility] Medical Records Department [address] [place] [address] History Physical Exam 08/14/25 1218 MR#: [id number] Acct: [id number] Name: JULIANA YEN Rep #: [id number] : 1975 49 From: Darci Bell MD PCP: Dr. Deana Gutiérrez MD Status:PRE [facility] Location: [facility] History and Physical Date of Admission: 08/19/25 This gentleman has a past medical history significant for dyslipidemia and hypertension. Also has history of premature coronary artery disease with his father undergoing CABG surgery at age 56. He has been referred to us for his complaints of dyspnea on exertion and chest pain. Per patient, few weeks ago, he woke up in the middle of the night with sharp anterior chest discomfort. This was unrelenting and was relieved only when he took some ibuprofen. Per patient, he also gets occasional left-sided chest discomfort which he describes as a knuckle. This is not related to exertion. No radiation to the arm neck or jaw. No associated diaphoresis. No associated shortness of breath. For the past some time, patient does describe dyspnea with moderate to strenuous exertion. Denies any orthopnea. No PND. No ankle edema. Intake Vital Signs: See EMR Intake Visit Reasons: [facility] Principal Cyber Engineer Required: No Accompanied by: Self Is patient in pain?: Yes (bilateral shoulders 50/10) Allergies Influenza Virus Vaccines Allergy (Unknown, Verified 03/31/25 10:03) Other clavulanic acid (From Augmentin) Adverse Reaction (Severe, Verified 03/31/25 10:03) Nausea/Vom/Diarrhea atorvastatin (From Lipitor) Adverse Reaction (Unknown, Verified 03/31/25 10:03) NEEDS FOLLOW-UP Medications: See EMR Have you fallen in the past year?: No PFSH Medical History Cerebral ischemia Chest pain Hemorrhoids History of renal calculi Hyperlipidemia Hypertension Kidney stone Vitamin D deficiency Wears hearing aid Surgical History History of lithotripsy History of vasectomy Family History Father Heart disease Hypertension Mother Cancer Sister Lupus (systemic lupus erythematosus) Brother Rheumatoid arthritis Grandfather Colon cancer Social History household members: spouse 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 Present separately) Exacerbation: rest Relieving: rest (for dull pain) and other (ibuprofen and water for HS sharp pain) Palpitations: No Edema: None Muscle aches with walking: None Resp Respiratory: Positive for SOB with activity (improved); Negative for SOB at rest or SOB orthopnea SOB lying down GI GI: Positive for nausea (separate from chest pains; worsened recently); Negative vomiting or heartburn Musc Musc: Positive for joint pain; Negative for muscle aches/ myalgia, muscle weakness or balance problems Neuro Neuro: Positive for lightheadedness (occasional per pt); Negative for dizziness, near syncope, syncope, headache(s) or weakness Endo Endo: Positive for fatigue Cardiology Exam Const Appearance: comfortable and no acute distress Nutritional Appearance: well nourished Neck Neck: no JVD Carotids: Negative bruit Chest Auscultation: Bilateral: Clear to Auscultation Cardio Rate: regular rate Rhythm: regular rhythm Heart sounds: S1 normal and S2 normal Neuro General: patient alert, patient awake and patient oriented x3 Extremities Lower Extremity Edema: None: Bilateral Supplemental Info Supplemental Information Stress test from 05/07/2025: Impression: 1. Technically adequate (percent predicted maximal heart rate greater than 85%) exercise tolerance test 2. Peak exercise ECG with no diagnostic ischemic changes 3. There were no cardiac dysrhythmias pretest, during exercise, or recovery 4. Rest and stress SPECT Cardiolite nuclear imaging demonstrate small reversible apical perfusion defect suggestive of mild apical ischemia. 5. The gated Cardiolite study reports an LVEF of 57%. Echocardiogram from 05/07/2025: Interpretation Summary The LV ejection fraction is 60 %. Assessment and Plan Assessment and Plan (1) Dyspnea on exertion: Status: Chronic Plan: On account of his shortness of breath and risk fact (more content not included)... [facility] Evaluation note 03-31-2025 Note Date & Type Note Facility 03-31-2025 Evaluation note Diagnosis Onset Date Resolution Chest pain chronic March 31, 2025 9:46am Dyslipidemia chronic March 31 9:46am Dyspnea on exertion chronic March 31, 2025 9:46am Erectile dysfunction chronic March 31, 2025 9:46am Hypertension chronic March 31 9:46am [facility] Work Phone: Progress note 03-31-2025 Note Date & Type Note Facility 03-31-[address] [facility] Progress note 03-31-2025 Note Date & Type Note Facility 03-31-2025 Progress note Note Date/Time March 31, 2025 10:36am [facility] [address] [place], [place] [address] OFFICE VISIT Date of Service: 03/31/25 MR#: [id number] Acct: [id number] Name: JULIANA YEN NI Rep #: [id number] : 1975 Provider: Dr. Ajit Bell MD Age/Sex: 49/M Location: [facility] Status: Signed HPI HPI History of Present Illness Details: This gentleman has a past medical history significant for dyslipidemia and hypertension. Also has history of premature coronary artery disease with his father undergoing CABG surgery at age 56. He has been referred to us for his complaints of dyspnea on exertion and chest pain. Per patient, few weeks ago, he woke up in the middle of the night with sharp anterior chest discomfort. This was unrelenting and was relieved only when he took some ibuprofen. Per patient, he also gets occasional left-sided chest discomfort which he describes as a knuckle. This is not related to exertion. No radiation to the arm neck or jaw. No associated diaphoresis. No associated shortness of breath. For the past some time, patient does describe dyspnea with moderate to strenuousexertion. Denies any orthopnea. No PND. No ankle edema. Intake Vital Signs 10/28/24 13:29 03/20/25 16:00 03/31/25 08:09 Height 5 ft 8 in 5 ft 8 in Weight: 224 lb 215 lb 203 lb BMI 34.0 30.9 BP 132/86 H 121/84 H Blood Pressure Location Lt brachial Lt brachial Position Sitting Sitting Respiration 14 16 Pulse 105 H 84 Pulse Source Monitor NIBP Temp 98.6 F Pulse Oximetry (%) 98 Oxygen Delivery Method room air Intake Visit Reasons: Atypical CP/Strong FH of CAD (Marcosel) Principal Cyber Engineer Required: No Accompanied by: Self Is patient in pain?: Yes (bilateral shoulders 50/10) Allergies Influenza Virus Vaccines Allergy (Unknown, Verified 03/31/25 10:03) Other clavulanic acid (From Augmentin) Adverse Reaction (Severe, Verified 03/31/25 10:03) Nausea/Vom/Diarrhea atorvastatin (From Lipitor) Adverse Reaction (Unknown, Verified 03/31/25 10:03) NEEDS FOLLOW-UP Medications ?Medication ?Instructions ?Recorded ?Confirmed ?Type cetirizine 10 mg capsule 10 mg PO QHS ALLERGIES/NAUSE A 02/22/14 03/31/25 History aspirin 81 mg tablet,delayed 81 mg PO DAILY BLOOD THIN NER 06/06/18 03/31/25 History release ibuprofen 200 mg capsule 200 mg PO PRN PRN Pain Or Fe landon 01/16/20 03/31/25 History rosuvastatin 10 mg tablet (Crestor) 10 mg PO DAILY 03/31/25 History amitriptyline 10 mg tablet 10 mg PO QHS #90 tabs 12/30 /24 06/02/25 Rx divalproex 500 mg tablet,delayed 500 mg PO QHS #90 tab s 10/28/24 03/31/25 Rx release (Depakote) losartan 25 mg tablet 25 mg PO QDAY 03/20/2503/31 History sildenafil (pulm.hypertension) 20 20 mg PO .other PRN 03/20/25 03/31/25 History mg tablet cholecalciferol (vitamin D3) 125 125 mcg PO QDAY 03/3103/31/25 History mcg (5,000 unit) capsule multivitamin 1 tab PO QDAY 03/31/2503/31 History Have you fallen in the past year?: No PFSH Medical History Cerebral ischemia Chest pain Hemorrhoids History of renal calculi Hyperlipidemia Hypertension Kidney stone Vitamin D deficiency Wears hearing aid Surgical History History of lithotripsy History of vasectomy Family History Father Heart disease Hypertension Mother Cancer Sister Lupus (systemic lupus erythematosus) Brother Rheumatoid arthritis Grandfather Colon cancer Social History household members: spouse 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 Present separately) Exacerbation: rest Relieving: rest (for dull pain) and other (ibuprofen and water for HS sharp pain) Palpitations: No Edema: None Muscle aches with walking: None Resp Respiratory: Positive for SOB with activity (improved); Negative for SOB at rest or SOB orthopneaundefinedSOB lying down GI GI: Positive for nausea (separate from chest pains; worsened recently); Negative vomiting or heartburn Musc Musc: Positive for joint pain; Negative for muscle aches/ myalgia, muscle weakness or balance problems Neuro Neuro: Positive for lightheadedness (occasional per pt); Negative for dizziness, near syncope, syncope, headache(s) or weakness Endo Endo: Positive for fatigue Cardiology Exam Const Appearance: comfortable and no acute distress Nutritional Appearance: well nourished Neck Neck: no JVD Carotids: Negative bruit Chest Auscultation: Bilateral: Clear to Auscultation Cardio Rate: regular rate Rhythm: regular rhythm Heart sounds: S1 normal and S2 normal Neuro General: patient alert, patient awake and patient oriented x3 Extremities Lower Extremity Edema: None: Bilateral Supplemental Info Supplemental Information Stress Test 08/14/2020: Procedure: Exercise tolerance test/imaging study Indications: Chest pain Consent: Per the patient Procedure: The patient exercised on a Raul protocol for 9 minutes completing Stage III achieving a peak heart rate of 151 bpm (86% predicted maximal heart rate) with apeak blood pressure 152/84 mmHg and a peak MET capacity of 10 METs. The baseline ECG demonstrated normal sinus rhythm. The peak exercise ECG demonstrated no obvious ECG changes. There were no cardiac dysrhythmias pretest, during exercise, or recovery. The functional capacity was considered good. There was no complaint of chest discomfort during exercise or recovery. The examination was discontinued secondary to dyspnea. Impression: 1. Technically adequate (percent predicted maximal heart rate greater than 85%)exercise tolerance test 2. Peak exercise ECG demonstrated no obvious ECG changes 3. There were no cardiac dysrhythmias pretest, during exercise, or recovery 4. Nuclear images pending Myocardial perfusion imaging study: Technique: The patient was injected with 11.8 mCi of technetium 99m Cardiolite and subsequently rest SPECT Cardiolite nuclear imaging was obtained in the horizontal long, vertical long, and short axis views. The patient exercised on aBruce protocol for 9 minutes completing Stage III achieving a peak heart rate of151 bpm (86% predicted maximal heart rate) with a peak blood pressure 152/84 mmHg and a peak MET capacity of 10 METs. The patient was injected with 35.8 mCi of technetium 99m Cardiolite and subsequently stress SPECT Cardiolite nuclear imaging was obtained in the horizontal long, vertical long, and short axis views. A gated Cardiolite study at peak stress was obtained. Interpretation: Rest and stress SPECT Cardiolite nuclear imaging status post realignment, normalization, and attenuation correction, demonstrates a small area of subtle diminished tracer uptake near the apical segments without significant change between rest and stress. There is end systolic thickening and brightening. Thegated Cardiolite study demonstrates myocardial thickening and inward wall motion. The reported LVEF is 62%. Impression: 1. Rest and stress SPECT Cardiolite nuclear imaging demonstrate myocardial perfusion change appearing compatible with the effects of etiologic apical thinning with no myocardial perfusion changes considered diagnostic for associated stress-induced myocardial ischemia. 2. The gated Cardiolite study reports an LVEF of 62%. This note was generated with [employer] software. It may contain incorrectwords, spelling, and punctuation that were not noted in checking the note beforesigning. Assessment and Plan Assessment and Plan (1) Dyspnea on exertion: Status: Chronic Plan: With his risk factors, I will check an exercise stress Myoview to rule out ischemia. Also check echocardiogram. (2) Chest pain: Status: Chronic Plan: Atypical. Patient counseled. Reassured. (3) Hypertension: Status: Chronic Plan: Losartan. (4) Dyslipidemia: Status: Chronic Plan: Rosuvastatin. PCP managing. (5) Erectile dysfunction: Status: Chronic Plan: On sildenafil. Orders: Orders 12 Lead EKG performed by [facility] Today E78.5 - Hyperlipidemia, unspecified, I10 - Essential (primary) hypertension, R07.9 - Chest pain, unspecified Plan Details Follow Up: 6 Months Coding Level of Care Code Off vis,new,level 4 Diagnoses Dyspnea on exertion R06.09 Chest pain R07.9 Hypertension I10 Dyslipidemia E78.5 Erectile dysfunction N52.9 Coding Level of Care Code Off vis,new,level 4 Diagnoses Dyspnea on exertion R06.09 Chest pain R07.9 Hypertension I10 Dyslipidemia E78.5 Erectile dysfunction N52.9 Clinical Quality Measures Falls Risk Screening/Assistive Devices Have you fallen in the past year?: No 03/31/25 1036 <Electronically signed by Darci Bell MD> Date _ Darci Bell MD Cosigner Signature: Date (if applicable) CC: Dr. Deana Gutiérrez MD ~ [employer] Work Phone: Progress note 05-07-2021 Note Date & Type Note Facility 05-07-2021 Note HNO ID: [id number] Author: Clifton Beck Jr., MD Service: ? Author Type: Physician Type: Progress Notes Filed: 05/07/2021 5:27 PM Note Text: ESTABLISHED PATIENT VISIT CHIEF COMPLAINT: Follow up HISTORY OF PRESENT ILLNESS: Juliana Yen is a 45 year old male, [...] (201 lb 1 (more content not included)... [facility] Evaluation note Note Date & Type Note Facility Evaluation note No assessment information availa ble [facility] Work Phone: Evaluation note Note Date & Type Note Facility Evaluation note Diagnosis Onset Date Cerebrovascular disease acut e Migraine headache without aura acute Sleep apnea acute [facility] Work Phone: Evaluation note Note Date & Type Note Facility Evaluation note Diagnosis Onset Date Resolution Chest pain chronic March 31, 2025 9:46am Dyslipidemia chronic March 31 9:46am Dyspnea on exertion chronic March 31, 2025 9:46am Erectile dysfunction chronic March 31, 2025 9:46am Hypertension chronic March 31 9:46am [facility] Work Phone: Reason for referral (narrative) Note Date & Type Note Facility Reason for referral (narrative) No reason for referral information available [facility] Work Phone: Summary Purpose Family History No Family History Records Found Relationship Condition Age at Onset Recorded Date/[place] le[place] father Cardiac disease Unknown Hypertension Unknown mother Malignant neoplasm Unknown sister Systemic lupus erythematosus Unknown brother Rheumatoid arthritis Unknown grandfather Malignant neoplasm of colon Unknown Advance Directives No Advanced Directives Records Found Advance Directive Response Recorded Date/ Time Living Will Yes January 16, 2020 8:59am Power of Winch Operator Yes January 15 8:59am Advance Directive Response Recorded Date/ Time Living Will Yes January 16, 2020 7:59am Power of Winch Operator Yes January 15 7:59am Chief Complaint and Reason for Visit Chief Complaint PE NON DOT/DRUG SCRE EN Chief Complaint PE NON DOT/DRUG SCRE EN POSSIBLE VASOSPASTIC ISCHEMIA FROM MIGRAINE EORDER Reason for Visit Cerebrovascular dise ase Migraine headache without aura Sleep apnea Chief Complaint PE NON DOT/DRUG SCRE EN POSSIBLE VASOSPASTIC ISCHEMIA FROM MIGRAINE EORDER Migraine without aura, not intractable, without st Sleep apnea, unspecified Reason for Visit Cerebrovascular dise ase Migraine headache without aura Sleep apnea Chief Complaint Admit Date Atypical CP/Strong FH of CAD ([place]) Madai dc 2024 9:46am Reason for Visit Admit Date Chest pain March 31, 2025 9:46a m Dyslipidemia March 31, 2025 9:46a m Dyspnea on exertion March 31, 2025 9:46a m Erectile dysfunction March 31, 2025 9:46 am Hypertension March 31, 2025 9:46a m Chief Complaint Admit Date Atypical CP/Strong FH of CAD ([place]) Madai dc 2024 9:46am CHEST PAIN May 07, 2025 6:24a m CHEST PAIN May 07, 2025 9:41a m Amb Documentation May 08, 2025 2:58 pm Additional Source Comments (unrecognized sect ion and content) No Status Records FoundNo Status Records Found INFORMATION SOURCE (unrecogn ized section and content) DATE CREATED AUTHOR 01/20/2022 [facility] DATE CREATED AUTHOR AUTHOR'S ORGANIZ ATION 08/18/2025 [facility] Goals (unrecognized section and content) Goals may be documented in a n alternate sectionGoals may be documented in an alternate sectionGoals may be documented in an alternate sectionGoals may be documented in an alternate sectionGoals may be documented in an alternate sectionGoals may be documented in an alternate sectionGoals may be documented in an alternate section Care Teams (unrecognized sec tion and content) Team Status: Active Member Role Status Dates Dr. Burton Graff MD Family Provider Active Dr. Deana Gutiérrez MD Primary Care Provider Active Team Status: Inactive Member Role Status Dates Dr. Deana Gutiérrez MD Primary Care Prov ider, Attending Provider, Referring Provider Active Team Status: Inactive Member Role Status Dates Dr. Deana Gutiérrez MD Primary Care Provider, Referrin g Provider Active Phan SOL, PA Attending Provider Active Team Status: Inactive Member Role Status Dates Dr. Deana Gutiérrez MD Primary Care Provider, Attendin g Provider Active Team Status: Inactive Member Role Status Dates Dr. Deana Gutiérrez MD Primary Care Provider, Referrin g Provider Active Dr. Bishnu Garcia MD Attending Provider Active Team Status: Inactive Member Role Status Dates Dr. Deana Gutiérrez MD Primary Care Provider Active Dr. Bishnu Garcia MD Attending Provider, Referring Provider Active Team Status: Inactive Member Role Status Dates Dr. Deana Gutiérrez MD Primary Care Provider Active Start: March 31, 2025 End: March 31, 2025 Dr. Deana Gutiérrez MD Referring Provider Active Start: March 31, 2025 End: March 31, 2025 Dr. Darci Bell MD Attending Provider Active Start: March 31, 2025 End: March 31, 2025 Team Status: Active Member Role/Relationship Status Dates Dr. Deana Gutiérrez MD Primary Care Provider Active Team Status: Inactive Member Role/Relationship Status Dates Dr. Deana Gutiérrez MD Primary Care Provider Active Start: March 31, 2025 End: March 31, 2025 Dr. Deana Gutiérrez MD Referring Provider Active Start: March 31, 2025 End: March 31, 2025 Dr. Darci Bell MD Attending Provider Active Start: March 31, 2025 End: March 31, 2025 Team Status: Inactive Member Role/Relationship Status Dates Dr. Deana Gutiérrez MD Primary Care Provider Active Start: May 07, 2025 End: May 07, 2025 Dr. Darci Bell MD Attending Provider Active Start: May 07, 2025 End: May 07, 2025 Dr. Darci Bell MD Referring Provider Active Start: May 07, 2025 End: May 07, 2025 Team Status: Active Member Role/Relationship Status Dates Dr. Deana Gutiérrez MD Primary Care Provider Active Start: May 07, 2025 Dr. Darci Bell MD Attending Provider Active Start: May 07, 2025 Dr. Darci Bell MD Referring Provider Active Start: May 07, 2025 Dr. Darci Bell MD Other Provider Active Star t: May 07, 2025 Team Status: Active Member Role/Relationship Status Dates Dr. Deana Gutiérrez MD Primary Care Provider Active Start: May 08, 2025 Flower Jones NP, REGISTERED RADIOGRAPHER-C Attending Provider Active Start: May 08, 2025 FOR RECORDS PERTAINING TO PATIENTS WHO ARE [...] BE BASED ON THE PRIMARY CLINICAL RECORDS. [facility] [employer] provides no warranty or guarantee of the accuracy or completeness of information in this document.
--- OUTSIDE RECORDS SUMMARY | 2025-08-19 07:36 | XMS RPT_ITS | CCD ---
Author Organization [facility] Care Team Providers Care Historiography Teacher Name Role Phone Dr. Deana Gutiérrez Primary Care Provider Dr. Deana Gutiérrez Referring Provider [phone] Mckayla SOL, SWETA Costa Attending Provider Dr. [...] Darci Attending Unavailable Ray, Darci Referring Unavailable [facility], Deana Primary Care Unavailable Txed, Deana Primary Care Unavailable Roof, Rajan H Attending Unavailable Roof, Rajan H Referring Unavailable Roof, Rajan H Attending Unavailable Roof, Rajan H Referring Unavailable Txed, Deana Primary Care Unavailable Allergies Allergy Classification Reported Allergen(s) Allergy Type Date of Onset Reaction(s) Facility (4 sources) Clavulanate Drug Allergy 3 Nausea/Vom/Diar mell [facility] (2 sources) atorvastatin Drug Allergy 5 NEEDS FOLLOW-UP [facility] (2 sources) Influenza Vaccines Allergy to substance 5 Other [facility] (1 source) atorvastatin Drug Allergy 5 [facility] Repository (1 source) Clavulanate Drug Allergy 5 [facility] (1 source) Influenza Virus Vaccines Drug allergy (disorder) 5 [facility] Repository Medications Current Medications Medication Drug Class(es) [...] )on 08-12-2025 BUN/CRE 21.5 RATIO High 08-18 [facility] Comment on above: Performed By: #### L 500.2500, L100.0100 #### [facility] [address] [place], [address] Calcium [Mass/Vol] 9.5 mg/dL Normal 7.6-11.0 [facility] Comment on above: Performed By: #### L 500.2500, L100.0100 #### [facility] [address] [place], [address] Chloride [Moles/Vol] 101 mmol/L Normal 98-108 [facility] Comment on above: Performed By: #### L 500.2500, L100.0100 #### [facility] [address] [place], [address] CO2 [Moles/Vol] 26.2 mmol/L Normal 21.0-32.0 [facility] Comment on above: Performed By: #### L 500.2500, L100.0100 #### [facility] [address] [place], [address] Creatinine [Mass/Vol] 1.04 mg/dL Normal 0.70-1.20 [facility] Comment on above: Performed By: #### L 500.2500, L100.0100 #### [facility] [address] [place], [address] GAP 12 Normal 5-15 [facility] Comment on above: Performed By: #### L 500.2500, L100.0100 #### [facility] [address] [place], [address] GFR/1.73 sq M.predicted among non-blacks MDRD (S/P/Bld) [Vol rate/Area] 87 mL/min/{1.73_m2} Normal >60 [facility] Comment on above: Result Comment: mL/m in/1.73m2 CKD-EPI Creatinine Equation (2020) Performed By: #### L 500.2500, L100.0100 #### [facility] [address] [place], [address] Glucose [Mass/Vol] 96 mg/dL Normal 70-99 [facility] Comment on above: Performed By: #### L 500.2500, L100.0100 #### [facility] [address] [place], [address] Potassium [Moles/Vol] 4.7 mmol/L Normal 3.3-5.1 [facility] Comment on above: Performed By: #### L 500.2500, L100.0100 #### [facility] [address] [place], [address] Sodium [Moles/Vol] 139 mmol/L Normal 133-145 [facility] Comment on above: Performed By: #### L 500.2500, L100.0100 #### [facility] [address] [place], [address] Urea nitrogen [Mass/Vol] 22 mg/dL High 4-19 [facility] Comment on above: Performed By: #### L 500.2500, L100.0100 #### [facility] [address] [place], [address] CBC W/Diff, Automatedon 10-1 -2024 Absolute Lymph 2.49 X10 3/uL Normal 0.83-4.51 [facility] Comment on above: Performed By: #### L 500.2500, L100.0100 #### [facility] [address] [place], [address] Absolute Neut 5.2 X10 3/uL Normal 2.0-7.7 [facility] Comment on above: Performed By: #### L 500.2500, L100.0100 #### [facility] [address] [place], [address] Basophils/100 WBC (Bld) 0.6 % Normal 0-1 [facility] Comment on above: Performed By: #### L 500.2500, L100.0100 #### [facility] [address] [place], [address] Eosinophils/100 WBC (Bld) 0.7 % Normal 0-5 [facility] Comment on above: Performed By: #### L 500.2500, L100.0100 #### [facility] [address] [place], [address] Erythrocyte distribution width (RBC) [Ratio] 13.2 % Normal 11.6-14.6 [facility] Comment on above: Performed By: #### L 500.2500, L100.0100 #### [facility] [address] [place], [address] Hematocrit (Bld) [Volume fraction] 43.1 % Normal 40-54 [facility] Comment on above: Performed By: #### L 500.2500, L100.0100 #### [facility] [address] [place], [address] Hemoglobin (Bld) [Mass/Vol] 14.3 g/dL Normal 13.0-16.5 [facility] Comment on above: Performed By: #### L 500.2500, L100.0100 #### [facility] [address] [place], [address] IG% 0.400 Normal 0.0-0.9 [facility] Comment on above: Result Comment: IG% - Immature Granulocytes (promyelocytes, myelocytes and metamyelocytes) > 1% indicates that a LEFT SHIFT is Present. Performed By: #### L 500.2500, L100.0100 #### [facility] [address] [place], [address] Lymphocytes/100 WBC (Bld) 29.2 % Normal 19-41 [facility] Comment on above: Performed By: #### L 500.2500, L100.0100 #### [facility] [address] [place], [address] MCH (RBC) [Entitic mass] 31.4 pg Normal 27.0-32.0 [facility] Comment on above: Performed By: #### L 500.2500, L100.0100 #### [facility] [address] [place], [address] MCHC (RBC) [Mass/Vol] 33.2 g/dL Normal 32-36 [facility] Comment on above: Performed By: #### L 500.2500, L100.0100 #### [facility] [address] [place], [address] MCV (RBC) [Entitic vol] 94.7 fL High 80-94 [facility] Comment on above: Performed By: #### L 500.2500, L100.0100 #### [facility] [address] [place], [address] Monocytes/100 WBC (Bld) 8.4 % Normal 0-10 [facility] Comment on above: Performed By: #### L 500.2500, L100.0100 #### [facility] [address] [place], [address] Neutrophils/100 WBC (Bld) 60.7 % Normal 47-70 [facility] Comment on above: Performed By: #### L 500.2500, L100.0100 #### [facility] [address] [place], [address] Nucleated RBC (Bld) [#/Vol] 0 10*3/uL Normal 0-5 [facility] Comment on above: Performed By: #### L 500.2500, L100.0100 #### [facility] [address] [place], [address] Platelet mean volume (Bld) [Entitic vol] 12.0 fL Normal 6.2-12.0 [facility] Comment on above: Performed By: #### L 500.2500, L100.0100 #### [facility] [address] [place], [address] Platelets (Bld) [#/Vol] 228 10*3/uL Normal 150-450 [facility] Comment on above: Performed By: #### L 500.2500, L100.0100 #### [facility] [address] [place], [address] RBC (Bld) [#/Vol] 4.55 10*6/uL Low 4.6-6.2 [facility] Comment on above: Performed By: #### L 500.2500, L100.0100 #### [facility] [address] [place], [address] RDW SD 45.9 fl High 35.1-43.9 [facility] Comment on above: Performed By: #### L 500.2500, L100.0100 #### [facility] [address] [place], [address] WBC (Bld) [#/Vol] 8.5 10*3/uL Normal 4.4-11.0 [facility] Comment on above: Performed By: #### L 500.2500, L100.0100 #### [facility] [address] [place], [address] Chest PA and Lateralon 08-12 Chest PA and Lateral [facility] Imaging Services [address] [place] [address] Chest PA and Lateral MR#: [id number] Acct: [id number] Name: JULIANA YEN Rep #: [id number] : 1975 M 49 From: Fercho Arguello PCP: Dr. Deana Gutiérrez MD Status: REG CLI Study: Chest PA and Lateral Date of Exam: 08/12/25 Exam# [id number] Ordering Dr: Rajan De Anda NP VARNISHING UNIT OPERATOR-C PROCEDURE: CHEST PA AND LATERAL 08/12/2025 REASON FOR EXAM: PRE-OPERATIVE: [facility] TECHNIQUE: Procedure Code: RADCXR Modality: DX Procedure: CHEST PA AND LATERAL COMPARISON: None FINDINGS: Left lower lobe opacity likely reflecting subsegmental atelectasis. No pleural effusion or pneumothorax. Cardiac silhouette is within normal limits. No acute fractures. RAD/Chest PA and Lateral IMPRESSION: Left lower lobe opacity likely reflecting subsegmental atelectasis. Reading Location: [id number] CC: VARNISHING UNIT OPERATOR-C Rajan De Anda; Dr. Deana Gutiérrez MD Ear Flap Binder: Signed Normal [facility] Echocardiogram study reportO rdered By: Darci Bell on 05-12-2025 Study report [facility] [address] [place] [address] Echo Complete 05/07/25 0930 MR#: [id number] Acct: [id number] Name: JULIANA YEN Rep #:[id number] : 1975 49 From: Darci Bell MD Attending Dr: Dr. Darci Bell MD Status: REG CLI Ordering Dr: Darci Bell MD Date: Location: [facility] Sex: M C Admitted: Reason For Study [...] Date Dictated: 05/07/25929 Date Transcribed: 05/12/25 1003 Ear Flap Binder: Signed [facility] Work Phone: Cardiovascular stress test r eportOrdered By: Darci Bell on 05-07-2025 Study report [facility] Cardiovascular Services [address] [place] [address] MR#: [id number] Acct: [id number] Name: JULIANA YEN Rep #: [id number] : 1975 49 From: Darci Bell MD [...] of 57%. This note was generated with Vonvo.comation software. It may contain incorrectwords, spelling, and punctuation that were not noted in checking the note beforesigning. 05/07/25943 Date _ Darci Bell MD CC: Dr. Darci Bell MD; Dr. Deana Gutiérrez MD ~ Date Dictated: 05/07/25940 Date Transcribed: 05/07/25940 Ear Flap Binder: STACIE Hutchison [facility] Work Phone: Echo Completeon 05-07-2025 Echo Complete [facility] Cardiovascular Services [address] [place] [address] Echo Complete 05/07/25929 MR#: [id number] Acct: [id number] Name: JULIANA YEN Rep #: [id number] : 1975 49 From: Darci Bell MD Attending Dr: Dr. Darci Bell MD Status: REG I Ordering Dr: Darci Bell MD Date: 05/07/25 Location: [facility] Sex: M C Admitted: Reason For Study [...] Date Dictated: 05/07/25929 Date Transcribed: 05/12/25 1003 Ear Flap Binder: Signed Normal [facility] Stress Reporton 05-07-2025 Stress Report [facility] Services [address] [place] [address] MR#: [id number] Acct: [id number] Name: JULIANA YEN Rep #: [id number] : 1975 49 From: Darci Bell MD [...] of 57%. This note was generated with Vonvo.comation software. It may contain incorrect words, spelling, and punctuation that were not noted in checking the note before signing. 05/07/2544 Date Darci Bell MD CC: Dr. Darci Bell MD; Dr. Deana Gutiérrez MD Date Dictated: 05/07/25940 Date Transcribed: 05/07/25940 Ear Flap Binder: STACIE Signed Normal [facility] Cardiology Visit Reporton Cardiology Visit Report [facility] [address] [place] [address] OFFICE VISIT Date of Service: 03/31/25 MR#: [id number] Acct: [id number] Name: JULIANA YEN Rep #: [id number] : 1975 Provider: Dr. Darci Bell MD Age/Sex: 49/M Location: 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 Normal [facility] Neurology Visit Reporton Neurology Visit Report [facility] [address] [facility], [address] [place] [address] OFFICE VISIT Date of Service: 10/28/24 MR#: [id number] Acct: [id number] Name: JULIANA YEN Rep #: [id number] : 1975 Provider: Dr. Bishnu franz MD Age/Sex: 48/M Location: [facility]. Status: Signed HPI HPI Chief Complaint: Est [...] mild. 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 Normal [facility] Thoracic Spine 3 Viewson Thoracic Spine 3 Views [facility] Imaging Services [address] [place] [address] Thoracic Spine 3 Views MR#: [id number] Acct: [id number] Name: JULIANA YEN Rep #: [id number] : 1975 M 48 From: Moy Silverio MD PCP: Dr. Deana Gutiérrez MD Status: REG [facility] Study: Thoracic Spine 3 Views Date of Exam: 10/11/24 Exam# [id number] Ordering Dr: Deana Gutiérrez MD 4:[id number] EXAM: XR THORACIC SPINE, 3 VIEWS CLINICAL [...] EST , CC: Dr. Deana Gutiérrez MD Ear Flap Binder: Signed Normal [facility] Basophil percentageOrdered B y: Bishnu Garcia on 09-27-2023 Bilirubin [Mass/Vol] 0.50 mg/dL 0.20-1.00 [facility] Comment on above: For patients on eltr ombopag therapy, use of Dimension [place] TBIL is not recommended. Chloride [Moles/Vol] 104 mmol/L 98-107 [facility] Glucose [Mass/Vol] 97 mg/dL 74-106 [facility] Potassium [Moles/Vol] 4.2 mmol/L 3.5-5.1 [facility] Protein [Mass/Vol] 7.7 g/dL 6.4-8.2 [facility] Sodium [Moles/Vol] 138 mmol/L 136-145 [facility] WBC (Bld) [#/Vol] 7.5 10*3/uL 4.4-11.0 [facility] Blood erythrocytes count (nu mber/volume)Ordered By: Bishnu Garcia on 09-27-2023 RBC (Bld) [#/Vol] 4.95 10*6/uL 4.6-6.2 [facility] Blood hemoglobin measurement (mass/volume)Ordered By: Bishnu Garcia on 09-27-2023 Hemoglobin (Bld) [Mass/Vol] 15.4 g/dL 13.0-16.5 [facility] Blood or tissue coagulation factor II targeted mutation analysis by molecular geneticOrdered By: Bishnu Garcia on 09-27-2023 F2 gene targeted mutation analysis [employer] Nom (Bld/Tiss) Comment . [facility] Comment on above: Result: c.*97G>A - N [...] in theF2 gene and a c.1601G>A (p. [id number]) variant in the F5 gene(commonly referred to as Factor V Leiden) have an approximately 20-fold increased risk for venous thromboembolism. Risks are likely nichole even higher in more complex genotype combinations involving theF2 c.*97G>A variant and Factor V Leiden (PMID: 45600293). Additionalrisk factors include but are not limited [...] for health care providers to discussresults at [phone] ([phone]).Test Details:Variant analyzed: c.*97G>A, previously referred to as [id number]/Limitations:DNA analysis of the F2 gene (NM_000506.5) was [...] was developed and its performance characteristics determinedby [employer]. It has not been cleared or approved by the Food and DrugAdministration.References:Tae Chawla, Mckenzie SANABRIA, Shamra R, Sharon WW, Sheldon JH; A[employer]G ProfessionalPractice and Guidelines Committee. Addendum: [place] [employer] consensus statement on factor V Leiden mutationtesting. Cyndy Med. 2020Jan 01. doi: 10.1038/w75479-134-72923-j.PMID: 97041096.Deborah ACOSTA. Prothrombin Thrombophilia. 2005May 23[Updated 2020Dec 03]. In: Pablo MP, Agus HH, Gege RA, et al.,editors. Fifi(R) [Internet]. [place] ([place]): [facility]; 2274-5739. Available from:https://www.ncbi.nlm.nih.gov/books/WCM6284/Maikol Chawla, Mckenzie SANABRIA, Andrea X, Saad B, Nicholas EB, Nessa P, Abraham CS;[facility] Laboratory Automation Controls Engineer Committee. Venous thromboembolismlaboratory testing (factor V Leiden and factor II c.*97G>A),2018 update: a technical standard of the [place] [employer] and Genomics (ACMG). Cyndy Med. 2017;20(12):0548-8658.doi: 10.1038/a62063-841-7663-w. Epub 2017Aug 03. PMID: 04965201. Blood platelet mean volumeOr dered By: Bishnu Garcia on 09-27-2023 Platelet mean volume (Bld) [Entitic vol] 11.8 fL 6.2-12.0 [facility] Determination of erythrocyte mean corpuscular volume (MCV)Ordered By: Bishnu Garcia on 09-27-2023 MCV (RBC) [Entitic vol] 94.5 fL 80-94 [facility] Dilute Ac's viper venom timeOrdered By: Bishnu Garcia on 09-27-2023 dRVVT Coag (PPP) [Time] 125.4 s 0.0-47.0 [facility] dRVVT Coag (PPP) [Time] 37.9 s 0.0-40.4 [facility] Erythrocyte sedimentation ra teOrdered By: Bishnu Garcia on 09-27-2023 ESR (Bld) [Velocity] 2 mm/h 0-20 [facility] Functional protein C measure mentOrdered By: Bishnu Garcia on 09-27-2023 Protein C actual/normal Chromogenic method (PPP) [Rel catalytic activity/Vol] 126 % 73-180 [facility] Comment on above: Performed at: [facility] [address] [id number] Director: Marcia Melendez MD, Phone: [phone] at: CB Adyen [address] [id number] Director: Noé Boyle PhD, Phone: [phone] at: [facility] [id number] [place], [place] [id number] Director: Roseanne Baker [facility], Phone: [phone] Hematocrit Auto (Bld) [Volum e fraction]Ordered By: Bishnu Garcia on 09-27-2023 Hematocrit (Bld) [Volume fraction] 46.8 % 40-54 [facility] Laboratory - Chemistry and C hemistry - challengeOrdered By: Bishnu Garcia on 09-27-2023 ALP [Catalytic activity/Vol] 93 U/L 45-117 [facility] ALT [Catalytic activity/Vol] 13 U/L 16-61 [facility] CO2 [Moles/Vol] 28.0 mmol/L 21.0-32.0 [facility] Globulin (S) [Mass/Vol] 3.8 g/dL 2.2-4.2 [facility] Magnesium [Mass/Vol] 2.3 mg/dL 1.6-2.6 [facility] Urea nitrogen/Creatinine [Mass ratio] 15.5 mg/mg 10-20 [facility] - Hematology and Cell countsOrdered By: Bishnu Garcia on 09-27-2023 Erythrocyte distribution width (RBC) [Entitic vol] 45.4 fL 35.1-43.9 [facility] Erythrocyte distribution width (RBC) [Ratio] 13.1 % 11.6-14.6 [facility] MCH (RBC) [Entitic mass] 31.1 pg 27.0-32.0 [facility] Auto (RBC) [Mass/Vol]Or dered By: Bishnunathen Garcia on 09-27-2023 MCHC (RBC) [Mass/Vol] 32.9 g/dL 32-36 [facility] No Panel InformationOrdered By: Bishnu Garcia on 09-27-2023 Anti-Cardiolipin IgM Antibody < 9 MPL U/mL 0-12 [facility] Comment on above: Negative: <13 Indete rminate: 13 - 20 Low-Med Positive: >20 - 80 High Positive: >80 Estimated GFR (MDRD) Amer 91 mL/min >60 [facility] Comment on above: GFR Calc Estimated GFR (MDRD) Non-Af Amer 75 mL/min >60 [facility] Comment on above: Non- GFR Calc Factor V Leiden Mutation Comment . [facility] Comment on above: Result: c.1601G>A (p .Ggk672Phx) - Not DetectedThis result is not associated with an increased risk for venousthromboembolism. See Additional Clinical Information andComments.Additional Clinical Information:Venous thromboembolism is a multifactorial diseaseinfluenced by genetic, environmental, and circumstantialrisk factors. The c.1601G>A (p. [id number]) variant in theF5 gene, commonly referred to [...] F2 c.*97G>Avariant and Factor V Leiden (PMID: 25998209). Additionalrisk factors include but are not limited [...] for health careproviders to discuss results at [phone] ([phone]).Test Details:Variant Analyzed: c.1601G>A (p. Fuy762Avm), referred toas Factor V LeidenMethods/Limitations:DNA analysis of [...] was developed and its performance characteristicsdetermined by [facility]. It has not been cleared orapproved by the Food and Drug Administration.References:Tae Chalwa, Mckenzie SANABRIA, Shamar R, Sharon WW, Sheldon JORGE; [facility] HOSPITALProfessional Practice and Guidelines Committee. Addendum:[place] [employer] consensus statement onfactor V Leiden mutation testing. Cyndy Med. 2020Jan 01.doi: 10.1038/q49296-780-26855-u. PMID: 75202647.Deborah ACOSTA. Factor V Leiden Thrombophilia. 1998March 12(Updated 2017Nov 02). In: Pablo MP, Agus HH, Gege RA,et al., editors. Fifi(R) (Internet). [place] ([place]):[facility], [place]; 3967-8721. Availablefrom: https://www.ncbi.nlm.nih.gov/books/TZS6368/Maikol Chawla, Mckenzie SANABRIA, Andrea X, Saad B, Nicholas EB, Nessa P,Abraham CS; [facility] Laboratory Automation Controls Engineer Committee.Venous thromboembolism laboratory testing (factor V Leidenand factor II c.*97G>A), 2018 update: a technical standardof the [place] [employer] and Genomics(ACMG). Cyndy Med. 2018 Sep;20(12):5783-8863. doi:10.1038/x10433-338-9807-m. Epub 2017Aug 03. PMID: 41833406. Total Complement (CH50) > 60 U/mL >41 [facility] Comment on above: Age Male Female 1 [...] (PPP) [Rel catalytic activity/Vol] 123 % 75-135 [facility] Comment on above: Direct Xa inhibitor anticoagulants such as rivaroxaban,apixaban and edoxaban will lead to spuriously elevatedantithrombin activity levels possibly masking a deficiency. Platelet poor plasma antithr ombin antigen detection by immunoassayOrdered By: Bishnu Garcia on 09-27-2023 Antithrombin Ag IA Ql (PPP) 130 % 72-124 [facility] Comment on above: This test was develo ped and its performance characteristicsdetermined by [facility]. It has not been cleared orapproved by the Food and Drug Administration. Platelet poor plasma protein S actual/normal ratio (relative time)Ordered By: Bishnu Garcia on 09-27-2023 Protein S actual/normal Coag (PPP) [Relative time] 95 % 63-140 [facility] Comment on above: Protein S activity m ay be falsely increased (masking anabnormal, low result) in patients receiving direct Xainhibitor (e.g., rivaroxaban, apixaban, edoxaban) or adirect thrombin inhibitor (e.g., dabigatran) anticoagulanttreatment due to assay interference by these drugs. Platelets bldOrdered By: Joe Garcia on 09-27-2023 Platelets (Bld) [#/Vol] 247 10*3/uL 150-450 [facility] Protein C antigen assayOrder ed By: Bishnu Garcia on 09-27-2023 Protein C Ag actual/normal IA (PPP) [Relative mass conc] 127 % 60-150 [facility] Protein S measurement in magda telet poor plasma by coagulation assay (units/volume)Ordered By: Bishnu Garcia on 09-27-2023 Protein S Coag Qn (PPP) 222 % 60-150 [facility] Comment on above: This test was develo ped and its performance characteristicsdetermined by [employer]. It has not been cleared orapproved by the Food and Drug Administration.Total Protein S Antigen is an acute phase reactant proteinand can be elevated in inflammatory states. Protein S, freeOrdered By: Sheyla Garcia on 09-27-2023 Protein S Free Ag IA Qn (PPP) 115 % 61-136 [facility] Serum cardiolipin IgG antibo dy assay by immunoassay (units/volume)Ordered By: Bishnu Garcia on 09-27-2023 Cardiolipin IgG IA Qn (S) < 9 GPL U/mL 0-14 [facility] Comment on above: Negative: <15 Indete rminate: 15 - 20 Low-Med Positive: >20 - 80 High Positive: >80 Serum or plasma albumin florence urement (mass/volume)Ordered By: Bishnu Garcia on 09-27-2023 Albumin [Mass/Vol] 3.9 g/dL 3.2-5.0 [facility] Serum or plasma albumin/glob ulin mass ratioOrdered By: Bishnu Garcia on 09-27-2023 Albumin/Globulin [Mass ratio] 1.0 {ratio} 0.9-2.4 [facility] Serum or plasma calcium florence urement (mass/volume)Ordered By: Bsihnu Garcia on 09-27-2023 Calcium [Mass/Vol] 8.9 mg/dL 8.5-10.1 [facility] Serum or plasma cardiolipin IgA antibody assay (units/volume)Ordered By: Bishnu Garcia on 09-27-2023 Cardiolipin IgA Qn < 9 APL U/mL 0-11 [facility] Comment on above: Negative: <12 Indete rminate: 12 - 20 Low-Med Positive: >20 - 80 High Positive: >80 Serum or plasma complement C 3 measurement (mass/volume)Ordered By: Bishnu Garcia on 09-27-2023 Complement C3 [Mass/Vol] 140 mg/dL 82-167 [facility] Serum or plasma complement C 4 measurement (mass/volume)Ordered By: Bishnu Garcia on 09-27-2023 Complement C4 [Mass/Vol] 34 mg/dL 12-38 [facility] Serum or plasma creatinine m easurement (mass/volume)Ordered By: Bishnu Garcia on 09-27-2023 Creatinine [Mass/Vol] 1.10 mg/dL 0.70-1.30 [facility] Comment on above: The validity of the calculated GFR & GFRAA in patients over 70 years has not been determined. Clinical correlation is essential. Serum or plasma urea nitroge n measurement (mass/volume)Ordered By: Bishnu Garcia on 09-27-2023 Urea nitrogen [Mass/Vol] 17 mg/dL 7-18 [facility] Thin prep Papanicolaou smear with manual screeningOrdered By: Bishnu Garcia on 09-27-2023 Thin prep Papanicolaou smear with manual screening 15 U/L 15-37 [facility] Thin prep Papanicolaou smear with manual screening 6 5-15 [facility] Thin prep Papanicolaou smear with manual screening 40.4 sec 0.0-47.6 [facility] Thin prep Papanicolaou smear with manual screening 1.13 Ratio 0.00-1.34 [facility] Thin prep Papanicolaou smear with manual screening 38.4 sec 0.0-43.5 [facility] Thin prep Papanicolaou smear with manual screening Comment: . [facility] Comment on above: No lupus anticoagula nt was detected. An extended dRVVT that corrects onmixing with normal plasma can be caused by a deficiency of one of thecommon pathway factors (X, V, II or fibrinogen). Thrombin time in platelet po or plasmaOrdered By: Bishnu Garcia on 09-27-2023 Thrombin time Coag (PPP) [Time] 22.2 sec 0.0-23.0 [facility] Erythrocyte sedimentation ra teOrdered By: Deana Gutiérrez on 09-15-2023 ESR (Bld) [Velocity] 2 mm/h 0-20 [facility] No Panel InformationOrdered By: Deana Gutiérrez on 09-15-2023 Anti-Nuclear Antibody Screen Negative Negative [facility] Comment on above: Performed at: [address] [id number] Director: Noé Boyle PhD, Phone: [phone] Miscellaneous Test See comment [facility] Comment on above: TEST RESULTS LIMITSM [...] Autoimmunity 2014;52:90-100.2. Ger FARLEY et al. PNAS 2013;110(53);87917-97576.3. Lenaioni E et al. Neurology 2006;67:505-507.This test was developed and its performance characteristicsdetermined by [employer]. It has not been cleared or approvedby the Food and Drug Administration. TESTING PERFORMED AT [facility]. ORIGINAL REPORT ON FILE IN LAB CONTAINS ADDITIONAL TEST SITE INFORMATION. Serum cyclic citrullinated p eptide IgG antibody assay (units/volume)Ordered By: Deana Gutiérrez on 09-15-2023 Cyclic citrullinated peptide IgG Qn 5 units 0-19 [facility] Comment on above: Negative <20 Weak po sitive 20 - 39 Moderate positive 40 - 59 Strong positive >59Performed at: [address] [id number] Director: Noé Boyle PhD, Phone: [phone] Serum or plasma C reactive p rotein measurement (mass/volume)Ordered By: Deana Gutiérrez on 09-15-2023 CRP [Mass/Vol] mg/L 0.0-3.0 [facility] Comment on above: C-Reactive Protein ( CRP) provides useful information for thediagnosis, therapy and monitoring of inflammatory processesand associated diseases. For the evaluation of Relative Riskfor Cardiovascular Disease, a High Sensitivity CRP (HSCRP)should be ordered. Serum rheumatoid factor dete ctionOrdered By: Deana Gutiérrez on 09-15-2023 Rheumatoid factor Ql (S) < 10.0 IU/mL <15 [facility] Absolute lymphocyte countOrd ered By: Deana Gutiérrez on 06-16-2023 Lymphocytes Auto (Unsp spec) [#/Vol] 3.13 10*3/uL 0.83-4.51 [facility] Basophil percentageOrdered B y: Deana Gutiérrez on 06-16-2023 Basophils/100 WBC (Bld) 0.6 % 0-1 [facility] Bilirubin [Mass/Vol] 1.00 mg/dL 0.20-1.00 [facility] Comment on above: For patients on eltr ombopag therapy, use of Dimension [place] TBIL is not recommended. Chloride [Moles/Vol] 104 mmol/L 98-107 [facility] Cholesterol [Mass/Vol] 170 mg/dL <200 [facility] Comment on above: <200 mg/dL Desirable 200-240 mg/dL Borderline >240 mg/dL High Risk Eosinophils/100 WBC (Bld) 1.3 % 0-5 [facility] Glucose [Mass/Vol] 101 mg/dL 74-106 [facility] Comment on above: Fasting Glucose resu lt from 100 to 125 mg/dL suggests IMPAIRED HOMEOSTASIS per A.D.A. criteria. Neutrophils (Bld) [#/Vol] 4.6 10*3/uL 2.0-7.7 [facility] Neutrophils/100 WBC (Bld) 53.0 % 47-70 [facility] Potassium [Moles/Vol] 3.9 mmol/L 3.5-5.1 [facility] Protein [Mass/Vol] 7.5 g/dL 6.4-8.2 [facility] Sodium [Moles/Vol] 139 mmol/L 136-145 [facility] Triglyceride [Mass/Vol] 311 mg/dL <199 [facility] Comment on above: The drugs N-Acetylcy steine and Metamizole may falsely depress this assay.Serum Triglycerides Reference Interval Normal <150 mg/dL Borderline high 150 - 199 mg/dL High 200 - 499 mg/dL Very High > or = 500 mg/dL WBC (Bld) [#/Vol] 8.7 10*3/uL 4.4-11.0 [facility] Blood erythrocytes count (nu mber/volume)Ordered By: Deana Gutiérrez on 06-16-2023 RBC (Bld) [#/Vol] 4.73 10*6/uL 4.6-6.2 [facility] Blood hemoglobin measurement (mass/volume)Ordered By: Deana Gutiérrez on 06-16-2023 Hemoglobin (Bld) [Mass/Vol] 14.8 g/dL 13.0-16.5 [facility] Blood lymphocytes/100 leukoc ytesOrdered By: Deana Gutiérrez on 06-16-2023 Lymphocytes/100 WBC (Bld) 36.1 % 19-41 [facility] Blood monocytes/100 leukocyt esOrdered By: Deana Gutiérrez on 06-16-2023 Monocytes/100 WBC (Bld) 8.8 % 0-10 [facility] Blood platelet mean volumeOr dered By: Deana Gutiérrez on 06-16-2023 Platelet mean volume (Bld) [Entitic vol] 11.2 fL 6.2-12.0 [facility] Determination of erythrocyte mean corpuscular volume (MCV)Ordered By: Deana Gutiérrez on 06-16-2023 MCV (RBC) [Entitic vol] 94.9 fL 80-94 [facility] Hematocrit Auto (Bld) [Volum e fraction]Ordered By: Deana Gutiérrez on 06-16-2023 Hematocrit (Bld) [Volume fraction] 44.9 % 40-54 [facility] Laboratory - Chemistry and C hemistry - challengeOrdered By: Deana Gutiérrez on 06-16-2023 ALP [Catalytic activity/Vol] 96 U/L 45-117 [facility] ALT [Catalytic activity/Vol] 21 U/L 16-61 [facility] CO2 [Moles/Vol] 28.0 mmol/L 21.0-32.0 [facility] Globulin (S) [Mass/Vol] 3.6 g/dL 2.2-4.2 [facility] Urea nitrogen/Creatinine [Mass ratio] 16.5 mg/mg 10-20 [facility] Laboratory - Hematology and Cell countsOrdered By: Deana Gutiérrez on 06-16-2023 Erythrocyte distribution width (RBC) [Entitic vol] 46.5 fL 35.1-43.9 [facility] Erythrocyte distribution width (RBC) [Ratio] 13.2 % 11.6-14.6 [facility] Immature granulocytes/100 WBC (Bld) 0.200 % 0.0-0.9 [facility] Comment on above: IG% - Immature Granu locytes (promyelocytes, myelocytes and metamyelocytes) > 1% indicates that a LEFT SHIFT is Present. MCH (RBC) [Entitic mass] 31.3 pg 27.0-32.0 [facility] Nucleated RBC/100 WBC (Bld) [Ratio] 0 % 0-5 [facility] MCHC Auto (RBC) [Mass/Vol]Or dered By: Deana Gutiérrez on 06-16-2023 MCHC (RBC) [Mass/Vol] 33.0 g/dL 32-36 [facility] No Panel InformationOrdered By: Deana Gutiérrez on 06-16-2023 Estimated GFR (MDRD) Amer 92 mL/min >60 [facility] Comment on above: GFR Calc Estimated GFR (MDRD) Non-Af Amer 76 mL/min >60 [facility] Comment on above: Non- GFR Calc Platelets bldOrdered By: Stephen Gutiérrez on 06-16-2023 Platelets (Bld) [#/Vol] 228 10*3/uL 150-450 [facility] Serum or plasma albumin florence urement (mass/volume)Ordered By: Deana Gutiérrez on 06-16-2023 Albumin [Mass/Vol] 3.9 g/dL 3.2-5.0 [facility] Serum or plasma albumin/glob ulin mass ratioOrdered By: Deana Gutiérrez on 06-16-2023 Albumin/Globulin [Mass ratio] 1.1 {ratio} 0.9-2.4 [facility] Serum or plasma calcium florence urement (mass/volume)Ordered By: Deana Gutiérrez on 06-16-2023 Calcium [Mass/Vol] 9.2 mg/dL 8.5-10.1 [facility] Serum or plasma cholesterol in HDL measurement (mass/volume)Ordered By: Deana Gutiérrez on 06-16-2023 Cholesterol in HDL [Mass/Vol] 39 mg/dL >40 [facility] Comment on above: The drugs N-Acetylcy steine and Metamizole may falsely depress this assay. Reference Range HDL <40 mg/dL Low HDL Cholesterol HDL >or= 60 mg/dL High HDL Cholesterol Serum or plasma cholesterol in VLDL measurement (mass/volume)Ordered By: Deana Gutiérrez on 06-16-2023 Cholesterol in VLDL [Mass/Vol] 62 mg/dL 5-40 [facility] Serum or plasma creatinine m easurement (mass/volume)Ordered By: Deana Gutiérrez on 06-16-2023 Creatinine [Mass/Vol] 1.09 mg/dL 0.70-1.30 [facility] Comment on above: The validity of the calculated GFR & GFRAA in patients over 70 years has not been determined. Clinical correlation is essential. Serum or plasma low density lipoprotein (LDL) cholesterol measurement (mass/volume)Ordered By: Deana Gutiérrez on 06-16-2023 Cholesterol in LDL [Mass/Vol] 69 mg/dL 0-130 [facility] Serum or plasma urea nitroge n measurement (mass/volume)Ordered By: Deana Gutiérrez on 06-16-2023 Urea nitrogen [Mass/Vol] 18 mg/dL 7-18 [facility] Thin prep Papanicolaou smear with manual screeningOrdered By: Deanamarimar Gutiérrez on 06-16-2023 Thin prep Papanicolaou smear with manual screening 23 U/L 15-37 [facility] Thin prep Papanicolaou smear with manual screening 7 5-15 [facility] Whole blood hemoglobin A1c/t otal hemoglobin ratio (mass fraction)Ordered By: Deana Gutiérrez on 06-16-2023 HbA1c (Bld) [Mass fraction] 5.5 % 3.8-5.6 [facility] Comment on above: Normal < 5.7 % Predi abetic 5.7 - 6.4 % Diabetic >or= 6.5 % Please note range changes. Absolute lymphocyte counton 05-09-2022 Lymphocytes Auto (Unsp spec) [#/Vol] 2.69 10*3/uL 0.83-4.51 [facility] Work Phone: Basophil percentageon 2021 Basophils/100 WBC (Bld) 0.8 % 0-1 [facility] Work Phone: Bilirubin [Mass/Vol] 0.80 mg/dL 0.20-1.00 [facility] Work Phone: Comment on above: For patients on eltr ombopag therapy, use of Dimension [place] TBIL is not recommended. Chloride [Moles/Vol] 100 mmol/L 98-107 [facility] Work Phone: Cholesterol [Mass/Vol] 272 mg/dL <200 [facility] Work Phone: Comment on above: <200 mg/dL Desirable 200-240 mg/dL Borderline >240 mg/dL High Risk Eosinophils/100 WBC (Bld) 1.3 % 0-5 [facility] Work Phone: Glucose [Mass/Vol] 106 mg/dL 74-106 [facility] Work Phone: Comment on above: Fasting Glucose resu lt from 100 to 125 mg/dL suggests IMPAIRED HOMEOSTASIS per A.D.A. criteria. Neutrophils (Bld) [#/Vol] 3.9 10*3/uL 2.0-7.7 [facility] Work Phone: Neutrophils/100 WBC (Bld) 50.4 % 47-70 [facility] Work Phone: Potassium [Moles/Vol] 3.7 mmol/L 3.5-5.1 [facility] Work Phone: Protein [Mass/Vol] 8.0 g/dL 6.4-8.2 [facility] Work Phone: Sodium [Moles/Vol] 137 mmol/L 136-145 [facility] Work Phone: Triglyceride [Mass/Vol] 242 mg/dL <199 [facility] Work Phone: Comment on above: The drugs N-Acetylcy steine and Metamizole may falsely depress this assay.Serum Triglycerides Reference Interval Normal <150 mg/dL Borderline high 150 - 199 mg/dL High 200 - 499 mg/dL Very High > or = 500 mg/dL WBC (Bld) [#/Vol] 7.7 10*3/uL 4.4-11.0 [facility] Work Phone: Blood erythrocytes count (nu mber/volume)on 05-09-2022 RBC (Bld) [#/Vol] 4.80 10*6/uL 4.6-6.2 [facility] Work Phone: Blood hemoglobin measurement (mass/volume)on 05-09-2022 Hemoglobin (Bld) [Mass/Vol] 14.8 g/dL 13.0-16.5 [facility] Work Phone: Blood lymphocytes/100 leukoc yteson 05-09-2022 Lymphocytes/100 WBC (Bld) 34.8 % 19-41 [facility] Work Phone: [phone] Blood monocytes/100 leukocyt eson 05-09-2022 Monocytes/100 WBC (Bld) 12.4 % 0-10 [facility] Work Phone: Blood platelet mean volumeon 05-09-2022 Platelet mean volume (Bld) [Entitic vol] 10.8 fL 6.2-12.0 [facility] Work Phone: Determination of erythrocyte mean corpuscular volume (MCV)on 05-09-2022 MCV (RBC) [Entitic vol] 93.3 fL 80-94 [facility] Work Phone: Hematocrit Auto (Bld) [Volum e fraction]on 05-09-2022 Hematocrit (Bld) [Volume fraction] 44.8 % 40-54 [facility] Work Phone: Laboratory - Chemistry and C hemistry - challengeon 05-09-2022 ALP [Catalytic activity/Vol] 95 U/L 45-117 [facility] Work Phone: ALT [Catalytic activity/Vol] 22 U/L 16-61 [facility] Work Phone: CO2 [Moles/Vol] 28.0 mmol/L 21.0-32.0 [facility] Work Phone: Globulin (S) [Mass/Vol] 3.8 g/dL 2.2-4.2 [facility] Work Phone: Urea nitrogen/Creatinine [Mass ratio] 21.8 mg/mg 10-20 [facility] Work Phone: Laboratory - Hematology and Cell countson 05-09-2022 Erythrocyte distribution width (RBC) [Entitic vol] 46.1 fL 35.1-43.9 [facility] Work Phone: Erythrocyte distribution width (RBC) [Ratio] 13.5 % 11.6-14.6 [facility] Work Phone: Immature granulocytes/100 WBC (Bld) 0.300 % 0.0-0.9 [facility] Work Phone: Comment on above: IG% - Immature Granu locytes (promyelocytes, myelocytes and metamyelocytes) > 1% indicates that a LEFT SHIFT is Present. MCH (RBC) [Entitic mass] 30.8 pg 27.0-32.0 [facility] Work Phone: Nucleated RBC/100 WBC (Bld) [Ratio] 0 % 0-5 [facility] Work Phone: MCHC Auto (RBC) [Mass/Vol]on 05-09-2022 MCHC (RBC) [Mass/Vol] 33.0 g/dL 32-36 [facility] Work Phone: No Panel Informationon 05-09 Estimated GFR (MDRD) Amer 92 mL/min >60 [facility] Work Phone: Comment on above: GFR Calc Estimated GFR (MDRD) Non-Af Amer 76 mL/min >60 [facility] Work Phone: Comment on above: Non- GFR Calc Platelets bldon 05-09-2022 Platelets (Bld) [#/Vol] 241 10*3/uL 150-450 [facility] Work Phone: Serum or plasma albumin florence urement (mass/volume)on 05-09-2022 Albumin [Mass/Vol] 4.2 g/dL 3.2-5.0 [facility] Work Phone: Serum or plasma albumin/glob ulin mass ratioon 05-09-2022 Albumin/Globulin [Mass ratio] 1.1 {ratio} 0.9-2.4 [facility] Work Phone: Serum or plasma calcium florence urement (mass/volume)on 05-09-2022 Calcium [Mass/Vol] 9.7 mg/dL 8.5-10.1 [facility] Work Phone: Serum or plasma cholesterol in HDL measurement (mass/volume)on 05-09-2022 Cholesterol in HDL [Mass/Vol] 36 mg/dL >40 [facility] Work Phone: Comment on above: The drugs N-Acetylcy steine and Metamizole may falsely depress this assay. Reference Range HDL <40 mg/dL Low HDL Cholesterol HDL >or= 60 mg/dL High HDL Cholesterol Serum or plasma cholesterol in VLDL measurement (mass/volume)on 05-09-2022 Cholesterol in VLDL [Mass/Vol] 48 mg/dL 5-40 [facility] Work Phone: Serum or plasma creatinine m easurement (mass/volume)on 05-09-2022 Creatinine [Mass/Vol] 1.10 mg/dL 0.70-1.30 [facility] Work Phone: Comment on above: The validity of the calculated GFR & GFRAA in patients over 70 years has not been determined. Clinical correlation is essential. Serum or plasma low density lipoprotein (LDL) cholesterol measurement (mass/volume)on 05-09-2022 Cholesterol in LDL [Mass/Vol] 188 mg/dL 0-130 [facility] Work Phone: Serum or plasma urea nitroge n measurement (mass/volume)on 05-09-2022 Urea nitrogen [Mass/Vol] 24 mg/dL 7-18 [facility] Work Phone: Thin prep Papanicolaou smear with manual screeningon 05-09-2022 Thin prep Papanicolaou smear with manual screening 35 U/L 15-37 [facility] Work Phone: Thin prep Papanicolaou smear with manual screening 9 5-15 [facility] Work Phone: CNOVon 05-07-2021 CNOV Office Visit (NEMOWS ) JULIANA YEN ([id number]) 1975 M Date Time Provider Department 05/07/21 [...] Never Smoke (more content not included)... Normal [facility] Vital Signs Date Time Vital Sign Value Performing Clinician Faci lity 03-31-2025 08:09-0400 Body height 172.[address] Deana Gutiérrez MD Work Phone: [facility] 03-31-2025 08:09-0400 Body mass index (BMI) [Ratio] 30.9 kg/m2 Dr. Deana Gutiérrez MD Work Phone: [facility] 03-31-2025 08:09-0400 Body weight 92.[address] Deana Gutiérrez MD Work Phone: [facility] 03-31-2025 08:09-0400 Diastolic blood pressure 84 mm[Hg] Dr. Deana Gutiérrez MD Work Phone: [facility] 03-31-2025 08:09-0400 Heart rate 84 /min Dr. Deaan Gutiérrez MD Work Phone: [facility] 03-31-2025 08:09-0400 Respiratory rate 16 /min Dr. Deana Gutiérrez MD Work Phone: [facility] 03-31-2025 08:09-0400 Systolic blood pressure 121 mm[Hg] Dr. Deana Gutiérrez MD Work Phone: [facility] 09-26-2023 09:49-0500 Body height 172.[address] Deana Gutiérrez Work Phone: [facility] 09-26-2023 09:49-0500 Body mass index (BMI) [Ratio] 33.1 kg/m2 Dr. Deana Gutiérrez Work Phone: [facility] 09-26-2023 09:49-0500 Body temperature 98.6 [degF] Dr. Deana Gutiérrez Work Phone: [facility] 09-26-2023 09:49-0500 Body weight 98.[address] Deana Gutiérrez Work Phone: [facility] 09-26-2023 09:49-0500 Diastolic blood pressure 90 mm[Hg] Dr. Deana Gutiérrez Work Phone: [facility] 09-26-2023 09:49-0500 Heart rate 91 /min Dr. Deana Gutiérrez Work Phone: [facility] 09-26-2023 09:49-0500 Respiratory rate 17 /min Dr. Deana Gutiérrez Work Phone: [facility] 09-26-2023 09:49-0500 SaO2% (BldA) [Mass fraction] 99 % Dr. Deana Gutiérrez Work Phone: [facility] 09-26-2023 09:49-0500 Systolic blood pressure 130 mm[Hg] Dr. Deana Gutiérrez Work Phone: [facility] Encounters Encounter Date Encounter Type Care Provider Facility Start: 08-19-2025 ambulatory [facility] Facility:[facility] Start: 08-14-2025 ambulatory Darci Ray Facility:[facility] Start: 08-12-2025 ambulatory Rajan Vines Roof Facility:[facility] Start: 07-02-2025 ambulatory [facility] Facility: [facility] Start: 05-08-2025 Non-patient / Non-visit [facility] Work Phone: Start: 05-08-2025 ambulatory [facility] Facility: [facility] Start: 05-07-2025 ambulatory [facility] Facility: [facility] Start: 05-07-2025 Non-patient / Non-visit Dr. Darci dodge MD -[facility] Start: 05-07-2025 End: 05-07-[address] Deana Gutiérrez MD Work Phone: -[facility] Start: 05-07-2025 End: 05-07-[address] Darci Bell MD -[facility] Work Phone: Start: 05-07-2025 End: 05-07-2025 ambulatory [facility] Facility:[facility] Start: 03-31-2025 End: 03-31-[address] Darci Bell MD -[facility] Work Phone: Start: 03-31-2025 End: 03-31-[address] Deana Gutiérrez MD Work Phone: [facility] Work Phone: Start: 10-28-2024 End: 10-28-2024 ambulatory Bishnu Garcia Facility:[facility] Start: 10-11-2024 End: 10-11-2024 ambulatory [facility] Facility:[facility] Start: 10-25-2023 End: 10-25-[address] Deana Gutiérrez Work Phone: [facility] Work Phone: Start: 10-25-2023 End: 10-25-[address] Deana Gutiérrez Work Phone: [facility]-Sleep Lab Work Phone: Start: 10-18-2023 End: 10-18-[address] Deana Gutiérrez Work Phone: [facility] Work Phone: Start: 09-27-2023 End: 09-27-[address] Deana Gutiérrez Work Phone: [facility] Work Phone: Start: 09-27-2023 End: 09-27-[address] Deana Gutiérrez Work Phone: [facility]-Laboratory, [place] Work Phone: Start: 09-26-2023 End: 09-26-[address] Deana Gutiérrez Work Phone: [facility] Work Phone: Start: 09-15-2023 End: 09-15-[address] Deana Gutiérrez Work Phone: [facility] Work Phone: Start: 09-15-2023 End: 09-15-[address] De[facility] Gutiérrez [facility] Phone[facility] Start: 07-18-2023 End: 07-18-[address] Deana Gutiérrez Work Phone: [facility] Work Phone: Start: 06-16-2023 End: 06-16-2023 ambulatory [facility] Work Phone: Start: 06-16-2023 End: 06-16-2023 [facility] Start: 05-09-2022 End: 05-09-2022 Patient encounter procedure [facility]Labor[facility] Procedures Date Procedure Procedure Detail Performing Clinician Start: 05-07-2025 Radionuclide imaging of perfusion of myocardium under exercise stress Dr. Deana Gutiérrez MD Work Phone: Start: 10-18-2023 MRI of brain with contrast Dr. Deana Gutiérrez Work Phone: Plan of Treatment Date Care Activity Detail Author Start: 03-31-2025 Evaluation of diagno stic study results [facility] Start: 09-27-2023 Cardiolipin IgA and IgG and IgM panel - Serum [facility] Start: 09-27-2023 Complement C3 [Mass/ volume] in Serum or Plasma [facility] Start: 09-27-2023 Complement C4 [Mass/ volume] in Serum or Plasma [facility] Start: 09-27-2023 Complement total hem olytic CH50 [Units/volume] in Serum or Plasma [facility] Start: 09-27-2023 Factor V Leiden genotype [facility] Start: 09-27-2023 Lupus anticoagulant assay [facility] Start: 09-27-2023 Protein C [Units/vol ume] in Platelet poor plasma by Coagulation assay [facility] Start: 09-27-2023 Protein C Ag actual/ normal in Platelet poor plasma by Immunoassay [facility] Start: 09-27-2023 Protein S assay [facility] Start: 09-27-2023 Protein S function estimate [facility] Start: 09-27-2023 Targeted analysis fo r gene mutation [facility] Start: 09-27-2023 [facility] Start: 09-15-2023 Procedure [facility] Antithrombin III assay [facility] Antithrombin III ass ay, functional [facility] Cardiolipin IgA Ab [ Units/volume] in Serum by Immunoassay [facility] Cardiolipin IgG Ab [ Units/volume] in Serum or Plasma [facility] Cardiolipin IgM Ab [ Units/volume] in Serum or Plasma [facility] F5 gene mutations fo und [Identifier] in Blood or Tissue by Molecular genetics method Nominal [facility] Lupus anticoagulant neutralization platelet [Time] in Platelet poor plasma by Coagulation assay [facility] MR Brain WO and W contrast IV [facility] Partial thromboplastin time ratio [facility] Polysomnography [facility] Protein S Free Ag ac tual/normal in Platelet poor plasma by Immunoassay [facility] Protein S, functional assay [facility] Thrombin time [facility] Payers Date Payer Category Payer Unknown [id number] 2024 Self-pay [id number] 2024 Unknown [id number] 2014 Unknown [id number] Unknown [id number] Unknown [facility] [employer] [id number] Unknown [id number] 2.16.8 [id number] Unknown [id number] 2.16.8 [id number] Unknown [id number] 2.16.8 [id number] Unknown [id number] 2.16.8 [id number] Unknown [id number] 2.16.8 [id number] Unknown [id number] 2.16.8 [id number] Unknown [id number] 2.16.8 [id number] Unknown [id number] 2.16.8 [id number] Unknown [id number] 2.16.8 [id number] Unknown [id number] 2.16.8 [id number] Social History Date Type Detail Facility Start: 01-16-2020 End: 09-26-2023 Tobacco smoking status NHIS Unknown if ever smoked [facility] Start: 01-16-2020 Non-smoker [facility] Start: 1975 Sex Assigned At Male [facility] Start: 03-20-2025 Tobacco smoking stat us NDIS Never smoked tobacco (finding) [facility] Clinical Note 08-14-2025 Note Date & Type Note Facility 08-14-2025 Note [facility] Medical Records Department [address] [place] [address] History Physical Exam 08/14/25 1218 MR#: [id number] Acct: [id number] Name: JULIANA YEN Rep #: [id number] : 1975 49 From: Darci Bell MD PCP: Dr. 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 [facility] Evaluation note 03-31-2025 Note Date & Type Note Facility 03-31-2025 Evaluation note Diagnosis Onset Date Resolution Chest pain chronic March 31, 2025 9:46am Dyslipidemia chronic March 31 9:46am Dyspnea on exertion chronic March 31, 2025 9:46am Erectile dysfunction chronic March 31, 2025 9:46am Hypertension chronic March 31 9:46am [facility] Work Phone: Progress note 03-31-2025 Note Date & Type Note Facility 03-31-2025 Progress note [facility] Progress note 03-31-2025 Note Date & Type Note Facility 03-31-2025 Progress note Note Date/Time March 31, 2025 10:36am [facility] [address] [place], [place] [address] OFFICE VISIT Date of Service: 03/31/25 MR#: [id number] Acct: [id number] Name: JULIANA YEN NI Rep #: [id number] : 1975 Provider: Dr. 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 This note was generated with [employer]comation software. It may contain incorrectwords, spelling, and [...] applicable) CC: Dr. Deana Gutiérrez MD ~ [employer] Work Phone: Progress note 05-07-2021 Note Date & Type Note Facility 05-07-2021 Note HNO ID: [id number] Author: Clifton Beck Jr., MD Service: ? [...] (201 lb 1 (more content not included)... [facility] Evaluation note Note Date & Type Note Facility Evaluation note No assessment information availa ble [facility] Work Phone: Evaluation note Note Date & Type Note Facility Evaluation note Diagnosis Onset Date Cerebrovascular disease acut e Migraine headache without aura acute Sleep apnea acute [facility] Work Phone: Evaluation note Note Date & Type Note Facility Evaluation note Diagnosis Onset Date Resolution Chest pain chronic March 31, 2025 9:46am Dyslipidemia chronic March 31 9:46am Dyspnea on exertion chronic March 31, 2025 9:46am Erectile dysfunction chronic March 31, 2025 9:46am Hypertension chronic March 31 9:46am [facility] Work Phone: Reason for referral (narrative) Note Date & Type Note Facility Reason for referral (narrative) No reason for referral information available [facility] Work Phone: Summary Purpose Family History No [...] Yes January 16, 2020 8:59am Power of Bracelet Maker Novelty Yes January 15 8:59am Advance Directive Response Recorded Date/ Time Living Will Yes January 16, 2020 7:59am Power of Bracelet Maker Novelty Yes January 15 7:59am Chief Complaint and [...] Atypical CP/Strong FH of CAD (Miedel) Madai az 2024 9:46am Reason for Visit Admit Date Chest pain March 31, 2025 9:46a m Dyslipidemia March 31, 2025 9:46a m Dyspnea on exertion March 31, 2025 9:46a m Erectile dysfunction March 31, 2025 9:46 am Hypertension March 31, 2025 9:46a m Chief Complaint Admit Date Atypical CP/Strong FH of CAD (Miedel) Madai az 2024 9:46am CHEST PAIN May 07, 2025 6:24a m CHEST PAIN May 07, 2025 9:41a m Amb Documentation May 08, 2025 2:58 pm Additional Source Comments (unrecognized sect ion and content) No Status Records FoundNo Status Records Found INFORMATION SOURCE (unrecogn ized section and content) DATE CREATED AUTHOR 01/20/2022 [facility] DATE CREATED AUTHOR AUTHOR'S ORGANIZ ATION 08/18/2025 [facility] Goals (unrecognized section and content) Goals may [...] Status: Inactive Member Role Status Dates Dr. Daena Gutiérrez MD Primary Care Prov ider, Attending [...] Start: May 08, 2025 Flower Jones NP, VARNISHING UNIT OPERATOR-C Attending Provider Active Start: May 08, 2025 [...] BE BASED ON THE PRIMARY CLINICAL RECORDS. [facility] [employer] provides no warranty or guarantee of the accuracy or completeness of information in this document.
--- NOTE | 2025-08-19 11:48 | DCINST_ITS ---
Discharge Instructions DC O2, CPAP, BIPAP needs Home O2 Discharge instructions: No Dressing / Incision Discharge Activity: Return to Normal Activity Dressing / Incision Call your doctor if your incision/area has: Continuous Slow Oozing, Sudden Increased Bleeding, Increased Pain/ Swelling, Increased Redness, Foul Smelling Discharge and Swelling at the incision site Call your doctor if you observe: Coldness, Increased Pain Follow Up Care Please Follow Up With: Darci Bell MD When: 2-4 weeks Test Results: Test results from this visit will be discussed in further detail at your follow- up appointment, if applicable. Discharge Plan Admission Attending Provider: Darci Bell Primary Care Provider: Deana Gutiérrez Instructions Print Language: [place] Discharge Orders/Prescriptions Prescriptions: New clopidogrel 75 mg Tablet 75 mg PO DAILY Qty: 30 11RF Continued rosuvastatin [Crestor] 10 mg tablet 10 mg PO DAILY divalproex [Depakote] 500 mg tablet,delayed release (DR/EC) 500 mg PO QHS Qty: 90 3RF amitriptyline 10 mg tablet 10 mg PO QHS Qty: 90 3RF losartan 25 mg tablet 25 mg PO QDAY cholecalciferol (vitamin D3) 125 mcg (5,000 unit) capsule 125 mcg PO QDAY multivitamin Tablet 1 tab PO QDAY cetirizine 10 MG capsule 10 mg PO QHS aspirin 81 MG tablet,delayed release (DR/EC) 81 mg PO DAILY ibuprofen 200 MG capsule 200 mg PO PRN PRN (Reason: Pain Or Fever) metoprolol tartrate 50 mg tablet 50 mg PO ONCE Qty: 1 0RF Held sildenafil (pulm.hypertension) 20 mg tablet 20 mg PO .other PRN (Reason: erectile dysfunction) Hold Instructions: Resume on 08/23/25. Rx Instructions: Take 5 tablets 30 minutes before intercourse as needed Referrals / Follow Up: Deana Gutiérrez MD [Primary Care Provider, Family Practice] Disposition Disposition (needs filled in before D/C Order can be placed): Home, Self Care
[2025-08-19] MEDS: 0.9% Normal Saline (1000mL) 1,000 ML 150 ML IV (12:31)
--- NOTE | 2025-08-19 13:31 | CRPHASE1_ITS ---
Patient Communication Patient Information Former Patient:: Phase I PHII Cardiac Rehab Discussed with Patient:: Yes Guide to Cardiac Rehab Given to Patient:: Yes Cardiac Rehab Facility Choice List Given to Patient:: Yes Communication to Cardiac Rehab Choice Program [facility] CR PHII:: Communication Given to CR Circular Gang Saw Operator:: Darci Bell Phase II Cardiac Rehab:: Yes Sessions:: 36 sessions - 3 days/wk, 12 weeks Post Discharge Choice Letter Given to Patient:: Yes Guide to Cardiac Rehab Given by ICU Staff Prior to Discharge:: Yes Phase I Charge:: Level I - Education Medical/Surgical History Medical History CA:: No Angina:: No CAD:: Yes Congestive Heart Failure:: No Cardiomyopathy:: No Valve Disease/Replacement:: No Pulmonary:: No COPD:: No Asthma:: No YAHAIRA:: No Diabetes:: No Diabetes Type I:: No Diabetes Type II:: No Hypertension:: Yes Dyslipidemia:: No Arrhythmias:: No EPS:: No CVA/TIA: CEA:: No PE:: No DVT:: No PVD:: No PAD:: No Arthritis:: No GI:: No GERD:: No Cancer:: No Renal:: No Thyroid:: No Depression:: No Anxiety:: No Surgical History CABG: No PTCA:: Yes ICD:: No Pacemaker:: No Orthopedic:: No Cardiac Rehabilitation Info Program Information Cardiac Rehabilitation Program Information: Cardiac Rehab The cardiac rehab team at [facility] consists of highly skilled exercise physiologists, nurses, respiratory therapists and physicians working together with you. Our purpose is to help you have a full recovery and achieve the goals you set for yourself. Over the years many of our patients have returned to activities they assumed they would never do again! We can help restore your confidence and motivation to make lifestyle changes that can have a significant impact on your health and quality of life! We can help answer questions and concerns you may have about exercise, lifestyle, medications, diet, stress and anxiety which are common following a hospitalization. WE monitor ECG and vital signs during exercise and discuss your progress with you and report to your physician(s). Cardiac Rehab is proven to help reduce readmissions, improve functional capacity and lower recurrence of problems with your heart. Our Cardiac Rehab program is Certified by the [place] Association of Cardio-Vascular and Pulmonary Rehabilitation (AACVPR) and Accredited by the [place] [employer] through our [facility]. You can contact us at . We invite you to call us with your questions or to get started in our program. If you have other questions or concerns be sure to ask your physician/provider during your follow-up visit. WE look forward to seeing you!
--- NOTE | 2025-08-19 13:31 | CRPHASE1_ITS ---
Patient Communication Patient Information Former Patient:: Phase I PHII Cardiac Rehab Discussed with Patient:: Yes Guide to Cardiac Rehab Given to Patient:: Yes Cardiac Rehab Facility Choice List Given to Patient:: Yes Communication to Cardiac Rehab Choice Program [facility] CR PHII:: Communication Given to CR Mailing Section Clerk:: Darci Bell Phase II Cardiac Rehab:: Yes Sessions:: 36 sessions - 3 days/wk, 12 weeks Post Discharge Choice Letter Given to Patient:: Yes Guide to Cardiac Rehab Given by ICU Staff Prior to Discharge:: Yes Phase I Charge:: Level I - Education Medical/Surgical History Medical History [place]:: No Angina:: No CAD:: Yes Congestive Heart Failure:: No Cardiomyopathy:: No Valve Disease/Replacement:: No Pulmonary:: No COPD:: No Asthma:: No YAHAIRA:: No Diabetes:: No Diabetes Type I:: No Diabetes Type II:: No Hypertension:: Yes Dyslipidemia:: No Arrhythmias:: No EPS:: No CVA/TIA: CEA:: No PE:: No DVT:: No PVD:: No PAD:: No Arthritis:: No GI:: No GERD:: No Cancer:: No Renal:: No Thyroid:: No Depression:: No Anxiety:: No Surgical History CABG: No PTCA:: Yes ICD:: No Pacemaker:: No Orthopedic:: No Cardiac Rehabilitation Info Program Information Cardiac Rehabilitation Program Information: Cardiac Rehab The cardiac rehab team at [facility] consists of highly skilled exercise physiologists, nurses, respiratory therapists and physicians working together with you. Our purpose is to help you have a full recovery and achieve the goals you set for yourself. Over the years many of our patients have returned to activities they assumed they would never do again! We can help restore your confidence and motivation to make lifestyle changes that can have a significant impact on your health and quality of life! We can help answer questions and concerns you may have about exercise, lifestyle, medications, diet, stress and anxiety which are common following a hospitalization. WE monitor ECG and vital signs during exercise and discuss your progress with you and report to your physician(s). Cardiac Rehab is proven to help reduce readmissions, improve functional capacity and lower recurrence of problems with your heart. Our Cardiac Rehab program is Certified by the [place] [employer] of Cardio-Vascular and Pulmonary Rehabilitation (AACVPR) and Accredited by the [place] [employer] through our Chest [facility] Center. You can contact us at . We invite you to call us with your questions or to get started in our program. If you have other questions or concerns be sure to ask your physician/provider during your follow-up visit. WE look forward to seeing you!
--- NOTE | 2025-08-19 13:37 | CRPH1.INSTRU ---
General Education Discussed with Patient CAD and cardiac anatomy and function:: Patient communicates acknowledgment Explanation of diagnoses and procedures:: Patient communicates acknowledgment Sign/Symptoms of HI:: Patient communicates acknowledgment Antiplatelet therapy: Patient communicates acknowledgment and Family communicates acknowledgment Proper use of NTG-SL: Patient communicates acknowledgment Emergency procedures and activation of EMS: Patient communicates acknowledgment Compliance of all prescribed medications: Patient communicates acknowledgment Smoking Risk Factors Patient Nicotine/Smoking Risk Factors Are:: Non-smoker Dyslipidemia Recommendations Recommendations Include:: Lipid profile not available Overweight/Obesity Risk Factors Patient Overweight/Obesity Risk Factors Are:: Overweight = 26-29 Hypertension Recommendations Recommendations Include:: Maintain BP <130/85 Heart Disease Risk Factors Patient Heart Disease Risk Factors Are:: Previous cardiac event Recommendations Recommendations Include:: Educated family members of their risk and Educated family members of importance of prevention of heart disease Diabetes Risk Factors Patient Diabetes Risk Factors Are:: No documented hx of diabetes Metabolic Syndrome Risk Factors Patient Metabolic Syndrome Risk Factors Are [3 of 5]:: Hypertension Recommendations Recommendations Include:: Does not meet criteria Response Code Metabolic Syndrome Response Code:: Patient communicates acknowledgment Sedentary Recommendations Recommendations Include:: Benefits of regular exercise and Monitored Outpatient Cardiac Rehab Stress Risk Factors Patient Stress Risk Factors Are:: Patient denies stress as a risk factor Response Code Stress Response Code:: Patient communicates acknowledgment
[2025-08-19 13:38] LABS: ACT Activated Clotting Time 216 sec (74-137)
[2025-08-19 13:38] LABS: ACT Activated Clotting Time 222 sec (74-137)
--- NOTE | 2025-08-19 13:44 | CL.I_ITS ---
Patient Name: JULIANA LOZANO [facility] Study Date: 08/19/2025 Performing: Darci Bell MD Ht: 68 inches 172.72 cm : 1975 Wt: 203.3 lbs 92.08 kg Age: 49 Gender: male BSA: 2.06 PROCEDURE(S) PERFORMED DC02-(38905)LHC/COR IC12-(34861/C9600)FERMIN W/WO PTCA, SINGLE CORONARY ARTERY IC12-(69807/C9600)FERMIN W/WO PTCA, SINGLE CORONARY ARTERY CLINICAL PROFILE AND CO-MORBIDITIES Indications: Suspected CAD Heart Failure: None Stress/Imaging Stress Test w/SPECT MPI: Yes Result: Positive Intermediate Risk Stress Test with SPECT MPI: Positive Intermediate Risk CAD Presentations: Other: Dyspnea on exterion CONCLUSIONS 80% Prox LAD 80% Mid RCA Successful FERMIN prox LAD using Felix [place] 3.5x15 mm Successful FERMIN Mid RCA using [place] 3.5x12 mm FERMIN RECOMMENDATIONS ASA Indefinitley P2Y12 inhibitors for atleast 6 months DESCRIPTION OF PROCEDURE The patient arrived to the procedure lab. The risks and benefits of the procedure as well as a full description of our services here and lack of surgical backup were fully explained to the patient and/or their significant other prior to the catheterization. The Timeout was completed, verifying the correct patient and procedure. The patient's procedural site was prepped and draped in the usual fashion. Local anesthetic was given subcutaneously to right radial region with Lidocaine 2%. Using a modified Seldinger technique, arterial access was obtained via the right radial artery, a 6Fr sheath was inserted., arterial access was obtained via the right radial artery, a 6Fr sheath was inserted.. Right Coronary Artery selective angiography was then performed in multiple views using a 5 Fr. 4.0 [place] catheter. Left Coronary Artery selective angiography was performed in multiple views using a 5 Fr. 4.0 [place] catheterThe images were reviewed and options discussed. A decision was then made to proceed with an Intervention, IVUS or other adjunct procedure. xb3 Guide catheter was inserted and engaged into the LCA. runthrough Guide wire was advanced to the LAD. felix 3.5 x 15 Balloon catheter was advanced across lesion in the LAD, proximal. Angiogram performed post stent deployment. nc emerge 3.5 x 12 Balloon catheter was inserted post stent. Angiogram performed post balloon dilatation. jr4 Guide catheter was inserted and engaged into the RCA. runthrough Guide wire was advanced to the RCA. felix 3.5 x 12 Drug Eluting stent was advanced across the lesion in the right coronary, mid. Angiogram performed post stent deployment. nc emerge 3.5 x 12 Balloon catheter was inserted post stent. Angiogram performed post stent deployment. The arterial sheath was pulled and a TR Band was applied for hemostasis CORONARY ANGIOGRAPHY DOMINANCE: Right Dominant LEFT MAIN: Tubular 20% Ostial lesion in LMCA LEFT ANTERIOR DESCENDING ARTERY: LAD: Tubular 80% Proximal lesion in LAD CIRCUMFLEX ARTERY: Angiographically normal RIGHT CORONARY ARTERY: RCA: Tubular 80% Mid lesion in RCA Tubular 50% Proximal lesion in RCA RT PDA: Tubular 50% Proximal lesion in RT PDA INTERVENTION INFORMATION LESION SITE: LAD (Proximal) Lesion Complexity: Non-High/Non-C, lesion length: 13 mm Pre Stenosis: 80 % Pre intervention GIBRAN flow: 3 PROCEDURE: Drug Eluting Stent with post dilatation Post Stenosis: 0 % Post intervention GIBRAN flow: 3 Lesion Devices: Terumo .014 180cm Runthrough Extra Floppy straight Cordis 6 Fr XB3.0 100cm Guide Catheter Medtronic 3.5 x 15 FELIX FRONTIER FERMIN Cal Sci [place] EMERGE MR 3.50x12 BALLOON LESION SITE: RCA (Mid) Lesion Complexity: Non-High/Non-C, lesion length: 10 mm Pre Stenosis: 80 % Pre intervention GIBRAN flow: 3 PROCEDURE: Drug Eluting Stent with post dilatation Post Stenosis: 0 % Post intervention GIBRAN flow: 3 Lesion Devices: Cal Sci NC EMERGE MR 3.50x12 BALLOON Cordis 6 Fr JR4 100cm Guide Catheter Terumo .014 180cm Runthrough Extra Floppy straight Medtronic 3.5 x 12 FELIX FRONTIER FERMIN COMPLICATIONS No Complications PROCEDURE MEDICATIONS Versed 1 mg IV Fentanyl 50 mcg IV Oxygen: 2 L/min via nasal cannula Brilinta 180 mg PO @ 08/19/2025 10:56:59 Heparin given IA 08/19/2025 10:45:24 Heparin 4000 unit(s) IV 08/19/2025 10:56:42 Heparin 3000 unit(s) IV 08/19/2025 11:06:30 Heparin 2000 unit(s) IV 08/19/2025 11:38:10 Nitro 200 mcg IC 08/19/2025 11:09:07 Nitro 200 mcg IC 08/19/2025 11:09:07 Verapamil 2.5mg, Ntg 200mcgs, 2000 units of Heparin given IA 08/19/2025 10:45:24 IV Bolus: .9 NaCl 250 ml total 08/19/2025 11:10:01 SUMMARY OF HEMODYNAMIC DATA Time AIR REST ECG 07:51:57 AO 119/80 (97) SA 10:53:03 Signed By Darci Bell MD On 08/19/2025 13:44:10 Darci Bell MD
--- NOTE | 2025-08-19 13:44 | CL.I_ITS ---
Patient Name: JULIANA LOZANO [facility] Study Date: 08/19/2025 Performing: Darci Bell MD Ht: 68 inches 172.72 cm : 1975 Wt: 203.3 lbs 92.08 kg Age: 49 Gender: male BSA: 2.06 PROCEDURE(S) PERFORMED DC02-(23373)LHC/COR IC12-(65647/C9600)FERMIN W/WO PTCA, SINGLE CORONARY ARTERY IC12-(79165/C9600)FERMIN W/WO PTCA, SINGLE CORONARY ARTERY CLINICAL PROFILE AND CO-MORBIDITIES Indications: Suspected CAD Heart Failure: None Stress/Imaging Stress Test w/SPECT MPI: Yes Result: Positive Intermediate Risk Stress Test with SPECT MPI: Positive Intermediate Risk CAD Presentations: Other: Dyspnea on exterion CONCLUSIONS 80% Prox LAD 80% Mid RCA Successful FERMIN prox LAD using Felix [place] 3.5x15 mm Successful FERMIN Mid RCA using [place] 3.5x12 mm FERMIN RECOMMENDATIONS ASA Indefinitley P2Y12 inhibitors for atleast 6 months DESCRIPTION OF PROCEDURE The patient arrived to the procedure lab. The risks and benefits of the procedure as well as a full description of our services here and lack of surgical backup were fully explained to the patient and/or their significant other prior to the catheterization. The Timeout was completed, verifying the correct patient and procedure. The patient's procedural site was prepped and draped in the usual fashion. Local anesthetic was given subcutaneously to right radial region with Lidocaine 2%. Using a modified Seldinger technique, arterial access was obtained via the right radial artery, a 6Fr sheath was inserted., arterial access was obtained via the right radial artery, a 6Fr sheath was inserted.. Right Coronary Artery selective angiography was then performed in multiple views using a 5 Fr. 4.0 [place] catheter. Left Coronary Artery selective angiography was performed in multiple views using a 5 Fr. 4.0 [place] catheterThe images were reviewed and options discussed. A decision was then made to proceed with an Intervention, IVUS or other adjunct procedure. xb3 Guide catheter was inserted and engaged into the LCA. runthrough Guide wire was advanced to the LAD. felix 3.5 x 15 Balloon catheter was advanced across lesion in the LAD, proximal. Angiogram performed post stent deployment. nc emerge 3.5 x 12 Balloon catheter was inserted post stent. Angiogram performed post balloon dilatation. jr4 Guide catheter was inserted and engaged into the RCA. runthrough Guide wire was advanced to the RCA. felix 3.5 x 12 Drug Eluting stent was advanced across the lesion in the right coronary, mid. Angiogram performed post stent deployment. nc emerge 3.5 x 12 Balloon catheter was inserted post stent. Angiogram performed post stent deployment. The arterial sheath was pulled and a TR Band was applied for hemostasis CORONARY ANGIOGRAPHY DOMINANCE: Right Dominant LEFT MAIN: Tubular 20% Ostial lesion in LMCA LEFT ANTERIOR DESCENDING ARTERY: LAD: Tubular 80% Proximal lesion in LAD CIRCUMFLEX ARTERY: Angiographically normal RIGHT CORONARY ARTERY: RCA: Tubular 80% Mid lesion in RCA Tubular 50% Proximal lesion in RCA RT PDA: Tubular 50% Proximal lesion in RT PDA INTERVENTION INFORMATION LESION SITE: LAD (Proximal) Lesion Complexity: Non-High/Non-C, lesion length: 13 mm Pre Stenosis: 80 % Pre intervention GIBRAN flow: 3 PROCEDURE: Drug Eluting Stent with post dilatation Post Stenosis: 0 % Post intervention GIBRAN flow: 3 Lesion Devices: Terumo .014 180cm Runthrough Extra Floppy straight Cordis 6 Fr XB3.0 100cm Guide Catheter Medtronic 3.5 x 15 FELIX FRONTIER FERMIN Cal Sci [place] EMERGE MR 3.50x12 BALLOON LESION SITE: RCA (Mid) Lesion Complexity: Non-High/Non-C, lesion length: 10 mm Pre Stenosis: 80 % Pre intervention GIBRAN flow: 3 PROCEDURE: Drug Eluting Stent with post dilatation Post Stenosis: 0 % Post intervention GIBRAN flow: 3 Lesion Devices: Cal Sci NC EMERGE MR 3.50x12 BALLOON Cordis 6 Fr JR4 100cm Guide Catheter Terumo .014 180cm Runthrough Extra Floppy straight Medtronic 3.5 x 12 FELIX FRONTIER FERMIN COMPLICATIONS No Complications PROCEDURE MEDICATIONS Versed 1 mg IV Fentanyl 50 mcg IV Oxygen: 2 L/min via nasal cannula Brilinta 180 mg PO @ 08/19/2025 10:56:59 Heparin given IA 08/19/2025 10:45:24 Heparin 4000 unit(s) IV 08/19/2025 10:56:42 Heparin 3000 unit(s) IV 08/19/2025 11:06:30 Heparin 2000 unit(s) IV 08/19/2025 11:38:10 Nitro 200 mcg IC 08/19/2025 11:09:07 Nitro 200 mcg IC 08/19/2025 11:09:07 Verapamil 2.5mg, Ntg 200mcgs, 2000 units of Heparin given IA 08/19/2025 10:45:24 IV Bolus: .9 NaCl 250 ml total 08/19/2025 11:10:01 SUMMARY OF HEMODYNAMIC DATA Time AIR REST ECG 07:51:57 AO 119/80 (97) SA 10:53:03 Signed By Darci Bell MD On 08/19/2025 13:44:10 Darci Bell MD
[2025-08-20 03:21] VITALS: BMI 32.2
[2025-08-20 03:38] VITALS: BP 102/70; PULSE 71; RESP 16; TEMP 36.8; O2SAT 97
[2025-08-20 07:17] LABS: Hematocrit 42.7 % (40-54); Hemoglobin 14.6 g/dL (13.0-16.5); Mean Corp Hgb Conc 34.2 g/dL (32-36); Mean Corpuscular Volume 92.0 fL (80-94); Mean Platelet Vol. 11.1 fl (6.2-12.0); Platelet Count 218 K/mm3 (150-450); RBC Distribution Width CV 12.9 % (11.6-14.6); RBC Distribution Width SD 43.6 fl (35.1-43.9); Red Blood Count 4.64 M/mm3 (4.6-6.2); White Blood Count 9.3 K/mm3 (4.4-11.0)
[2025-08-20 07:43] LABS: AST(SGOT) 36 U/L (<=37); Alanine Aminotransfer ALT/SGPT 19 U/L (<=46); Albumin, Serum 4.1 g/dL (3.5-5.0); Alkaline Phosphatase 78 U/L (40-129); Anion Gap 11 (5-15); BUN 16 mg/dL (4-19); BUN/Creat Ratio 16.5 RATIO (10-20); Calcium,Total 9.2 mg/dL (7.6-11.0); Carbon Dioxide 22.4 mmol/L (21.0-32.0); Chloride 103 mmol/L (98-108); Cholesterol 139 mg/dL (<=200); Estimated Creatinine Clearance 104.52 ml/min (50-250); Globulin 2.7 g/dL (2.2-4.2); Glucose 100 mg/dL (70-99); Low Density Lipoprotein Calc. 69 mg/dL; Potassium 4.0 mmol/L (3.3-5.1); Triglycerides 215 mg/dL; Very Low Density Lipoprotein 43 mg/dL (5-40); cholesterol:hdl ratio screen 4.03
[2025-08-20 09:42] VITALS: BP 125/79; PULSE 71; RESP 14; TEMP 36.8; O2SAT 97
[2025-08-20] MEDS: Aspirin E.C. 81 MG Tablet PO (09:44)
[2025-08-20] MEDS: Cholecalciferol (Vit D3) 125 MCG CAPSULE (5,000 UNITS) PO (09:44)
--- NOTE | 2025-08-20 11:45 | EKG12_ITS ---
Test Reason : POST PCI Blood Pressure : */* mmHG Vent. Rate : 65 BPM Atrial Rate : 65 BPM P-R Int : 180 ms QRS Dur : 82 ms QT Int : 404 ms P-R-T Axes : 12 -16 18 degrees QTcB Int : 420 ms Normal sinus rhythm Normal ECG When compared with ECG of 31-Dec-2011 21:17, No significant change was found Confirmed by Po Benton ([id number]), technical editor GERRY STALLWORTH ([id number]) on 08/20/2025 1:26:31 PM Referred By: Darci Bell Confirmed By: Po Benton
--- NOTE | 2025-08-20 11:45 | EKG12_ITS ---
Test Reason : POST PCI Blood Pressure : */* mmHG Vent. Rate : 65 BPM Atrial Rate : 65 BPM P-R Int : 180 ms QRS Dur : 82 ms QT Int : 404 ms P-R-T Axes : 12 -16 18 degrees QTcB Int : 420 ms Normal sinus rhythm Normal ECG When compared with ECG of 31-Dec-2011 21:17, No significant change was found Confirmed by Po Benton ([id number]), assistant editor GERRY STALLWORTH ([id number]) on 08/20/2025 1:26:31 PM Referred By: Darci Bell Confirmed By: Po Benton
[2025-08-20 11:52] VITALS: BP 125/79; PULSE 71; RESP 14; TEMP 36.8; O2SAT 97
--- NOTE | 2025-08-20 12:51 | PHA.DC_ITS ---
Pharmacy [facility] Counseling Pharmacy Service has performed discharge medication reconciliation and counseling for this patient. 1. CLOPIDOGREL 75MG PO DAILY The patient's discharge medication list was reviewed for discrepancies and discrepancies were resolved. The patient was counseled on the following discharge medications and changes in medications for homegoing were reviewed. The Reason for Use, instructions for use, and potential side effects were reviewed for all new medications. The patient's questions regarding all of their medications were answered. The patient was able to verbally demonstrate an understanding of their discharge medications. Medications at Discharge Home Medications cetirizine 10 mg capsule 10 mg PO QHS ALLERGIES/NAUSEA 02/22/14 aspirin 81 mg tablet,delayed release 81 mg PO DAILY BLOOD THINNER 06/06/18 ibuprofen 200 mg capsule 200 mg PO Q6H PRN Pain Or Fever 01/16/20 rosuvastatin 10 mg tablet (Crestor) 10 mg PO DAILY 09/26/23 amitriptyline 10 mg tablet 10 mg PO QHS #90 tabs 10/28/24 divalproex 500 mg tablet,delayed release (Depakote) 500 mg PO QHS #90 tabs 10/28/24 losartan 25 mg tablet 25 mg PO QDAY 03/20/25 sildenafil (pulm.hypertension) 20 mg tablet 20 mg PO .other PRN erectile dysfunction 03/20/25 Held on 08/19/25. Instructions: Resume on 08/23/25. cholecalciferol (vitamin D3) 125 mcg (5,000 unit) capsule 125 mcg PO QDAY 03/31/25 multivitamin 1 tab PO QDAY 03/31/25 metoprolol tartrate 50 mg tablet 50 mg PO ONCE #1 TAB 05/15/25 clopidogrel 75 mg tablet (Plavix) 75 mg PO QDAY #30 tabs 08/20/25
== END 2025-08-20 13:22 | disposition home or self-care (01) ==
LOC: CLSP 11:49 → PCU 11:58
PROVIDERS: Admitting Provider Internal Medicine Cardiovascular Disease; PCP Family Medicine; Referring Provider Internal Medicine Cardiovascular Disease; Visit Provider Internal Medicine Cardiovascular Disease
DX: I25.10 Atherosclerotic heart disease of native coronary artery without angina pectoris (principal); I10 Essential (primary) hypertension; E78.5 Hyperlipidemia, unspecified; Z82.49 Family history of ischemic heart disease and other diseases of the circulatory system; R06.09 Other forms of dyspnea; R07.89 Other chest pain
CPT/HCPCS: 36415; 80053; 80061; 85027; 85347; 92928; 93005; 93454; 96360; 96361; 99152; 99153; 99221; C1887; C1894; Q9967; C1725; C1769; C1874; C9600; G0378

== ENCOUNTER → 2025-08-28 | Outpatient (CLI) | payer BC, SELFPAY ==
--- NOTE | 2025-08-28 12:59 | CR.HP_ITS ---
CR - History & Physical
--- NOTE | 2025-08-28 12:59 | PCM.CR.HP2 ---
CR - History & Physical General Arrival date:: 08/28/25 Arrival time:: 12:59 Date of Referral:: 08/19/25 Date of CR Evaluation:: 08/28/25 Referring Physician: Dr. Bell Primary Diagnosis: PCI w/stenting History of Present Cardiac Event Onset Date PTCA or coronary stenting:: Yes (onset 08/19/25) Vessel: LAD and RCS Medications Ambulatory Orders ?Medication ?Instructions ?Recorded cetirizine 10 mg capsule 10 mg PO QHS ALLERGIES/NAUSEA 02/22/14 aspirin 81 mg tablet,delayed 81 mg PO DAILY BLOOD THINNER 06/06/18 release ibuprofen 200 mg capsule 200 mg PO Q6H PRN Pain Or Fever 01/16/20 rosuvastatin 10 mg tablet (Crestor) 10 mg PO DAILY 09/26/23 amitriptyline 10 mg tablet 10 mg PO QHS #90 tabs 10/28/24 divalproex 500 mg tablet,delayed 500 mg PO QHS #90 tabs 10/28/24 release (Depakote) losartan 25 mg tablet 25 mg PO QDAY 03/20/25 sildenafil (pulm.hypertension) 20 20 mg PO .other PRN erectile 03/20/25 mg tablet dysfunction Held on 08/19/25. Instructions: Resume on 08/23/25. cholecalciferol (vitamin D3) 125 125 mcg PO QDAY 03/31/25 mcg (5,000 unit) capsule multivitamin 1 tab PO QDAY 03/31/25 metoprolol tartrate 50 mg tablet 50 mg PO ONCE #1 TAB 05/15/25 clopidogrel 75 mg tablet (Plavix) 75 mg PO QDAY #30 tabs 08/20/25 Allergies Allergies Influenza Virus Vaccines Allergy (Unknown, Verified 03/31/25 10:03) Other clavulanic acid (From Augmentin) Adverse Reaction (Severe, Verified 03/31/25 10:03) Nausea/Vom/Diarrhea atorvastatin (From Lipitor) Adverse Reaction (Unknown, Verified 03/31/25 10:03) NEEDS FOLLOW-UP Sleep Disorder Evaluation Hx of Sleep Apnea: Yes Do you snore loudly (louder than talking or can be heard through closed doors)?: No Do you often feel tired/ fatigued/ sleepy during daytime?: No Has anyone observed you stop breathing during sleep?: No History of Hypertension (for STOP score): Yes STOP Results: Negative Advanced Directives Advanced Directives 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 Living Will: Yes Advance Directives Information Provided: No Advance Directives on File: No DNR Order?:: No Past Medical History Covid-19 Screening Physicial Symptoms Other Clinical Concerns Exposure Risk Pertinent Comorbidities Has a serious heart condition:: Yes Past Medical Illness Past Medical History (Updated 08/19/25 @ 15:59 by Chichi Tompkins) Wears hearing aid Z97.4 Chest pain R07.9 Kidney stone N20.0 Cerebral ischemia I67.82 Hyperlipidemia E78.5 Vitamin D deficiency E55.9 History of renal calculi Z87.442 Hemorrhoids K64.9 Hypertension I10 Past Surgical History Past Surgical History (Updated 08/19/25 @ 15:58 by Chichi Tompkins) Stented coronary artery (08/19/25) Z95.5 FERMIN to proximal LAD using [place] 3.5 X 15 mm; FERMIN to mid RCA using [place] 3.5 X12 08/19/25 History of vasectomy Z98.52 Reversal History of lithotripsy Z98.890 2020 Family History Summary Family History Father Heart disease Hypertension Mother Cancer Sister Lupus (systemic lupus erythematosus) Brother Rheumatoid arthritis Grandfather Colon cancer Social History Smoking History Smoking Status: Never smoker Alcohol Use Alcohol Usage: No Substance Abuse Hx Substance Use: No Occupation Occupation (List type of work in comments):: Employed Hours worked per day:: 9 Social Environment Status Marital Status: Current Living Arrangements Living Environment:: Spouse Children How many children do you have?: 3 Do any of your children live nearby?: Yes Safety Do you feel safe in your surroundings?: Yes Assistance Do you need any assistance at home?: no Review of Systems Review of Systems Hints Review of Present Symptoms: Reports Shortness of Breath with Exertion, Fatigue, Appetite - Normal, Appetite - Special Diet and Sleep - Normal; Denies Shortness of Breath at Rest, PVD, Operative Discomfort, Angina, Wound Healing, Dizziness/Lightheadedness or Heart Arrhythmia/Irregularities Pain Is Patient Pain Free?: Yes Risk Factor Assessment Chief Complaint Chief Complaint: PCI w/stenting Vital Signs Pulse Ox: 98 Blood Pressure: 121/84 Pulse Pulse Rate: 84 Hypertension Blood Pressure Sitting - Right Arm: 121/84 Stress Stress: Work-related Obesity Height: 5 ft 8 in Weight:: 203 lb Weight in Pounds: 203.0 lbs Body Mass Index (BMI): 30.9 Nutritional Referral for Obesity: No Physical Inactivity Physical Inactivity: Reg Exercise 30 min/day Risk Stratification Risk Guidelines: Lowest Risk: Risk Factor for Smoking, Moderate Risk: Risk Factor for Diabetes, Risk Factor for Sedentary Lifestyle and Risk Factor for Depression and Highest Risk: Risk Factor for Dyslipidemia, Risk Factor for Obesity and Risk Factor for Hypertension For Smoking Smoking Risk Guidelines For Dyslipidemia Dyslipidemia Risk Guidelines For Diabetes Mellitus Diabetes Risk Guidelines For Obesity/Overweight Obesity/Overweight Risk Guidelines For Hypertension Hypertension Risk Guidelines For Sedentary Lifestyle Sedentary Lifestyle Risk Guidelines For Depression Depression Risk Guidelines Family History Family History Father Heart disease Hypertension Mother Cancer Sister Lupus (systemic lupus erythematosus) Brother Rheumatoid arthritis Grandfather Colon cancer Motivation Motivation to Participate On a scale of 1 to 10, how prepared are you to commit to attending program?: 5 What do you see as barriers to successfully being able to complete the program?: nothing What do you see as the benefits of succesfully completing the program? In other words, what do you hope to get out of participating in the program?: more energy Are there issues you are dealing with that will interfere with completing the program?: no Do you have a spouse or signficant other, family or friends who will help support you to complete the program?: yes
[2025-08-28 13:04] VITALS: BP 121/84; PULSE 84; O2SAT 98
--- NOTE | 2025-08-28 13:04 | PCM.CR.ITP ---
Diagnosis General Information Admitting Diagnosis: PCI w/stenting Personal Learning Style:: Audio/Visual Barriers to Learning: No Barriers Stage of change r/t lifestyle modifications:: Contemplation Gave educational material for:: Treating Heart Disease, How The Heart Works, What it means to have Heart Disease, How Coronary Artery Disease is Diagnosed, Heart Procedures, What Heart Medications Do, Risk Factors & Modifications, Living an Active Life, Nutrition, Emotions & Heart Disease, Stress Management & Relaxation and Sleep Disorders & Heart Disease Education/Goals Cardiac Rehabilitation Goals Personal Goals: Initial Assessment: Control risk factors (learn risk factor modification) Scale for measuring improvement of personal goals Diagnosis & Disease Process Outcomes/Goals: Pt IDs own risk factors & lifestyle modifications by Session 10, Verbalizes symptoms of angina & response by session 3., Pt independently manages and Other Additional Outcomes/Goals: Plan/Interventions: Assist Pt to ID & engage in lifestyle modification to reduce CVD risk, Instruct on individual risk factors, Review symptoms of angina & emergency actions, Review secondary diagnosis & identify educational needs. and Other see comment 30 day Reassessments:: Not Met 30 day Reassessments:: Not Met 30 day Reassessments:: Not Met 30 day Reassessments:: Not Met Final Reassessments:: Not Met Safety Referral to Physical Therapy: No Referral to [facility] Case Management: No Fall Risk Assessed:: Yes Assistive Devices:: None Exercise - Initial Assessment Visit Date of Eval: 08/28/25 (initial eval) Mets: Pre-: >3 METS for 30 minutes by discharge, >5 METS for 30 minutes by discharge, >7 METS for 30 minutes by discharge and Unable to meet goal due to: (see comment below) Physician Prescribed Exercise Modalities: Treadmill, Rower, [place]antoine Airdyne AD-7, SciFit Stepper, INMANFit Pro-II Ergometer and INMANFit Lateral [place] Frequency: 3x/week for 12 weeks [36 sessions] Intensity: 60-80% of age predicted maximum heart rate reserve Duration: 30 - 45 minutes Current METSs:: 3 Target Heart Rate:: 101-127 Resting Blood Pressure: 121/84 EKG Type: NSR Outcomes & Goals Goals:: Verbalizes understanding of THR, RPE & goal METS by session 6, Documents in home exercise log/reports 30 min aerobic 5 day/wk by DC, Demonstrates accurate pulse taking by DC and Other additional outcome/goals: see below Intervention & Plan Exercise Program Goals: Instruct on personal THR & RPE, Instruct on MET level & personal MET goal, Show patient to take own pulse /validate performance until accurate, Instruct on home exercise and Other additional plan/int Physical Activity Home Exercise Physical Activity - Home Exercise: Safe Exercise, Warm-up, Self-monitoring, Cool-Down, Home Exercise > 30 min Daily and Sitting Time <3 hours/daily Outcomes & Goals Outcomes/Goals: Demonstrates correct Warm-up/exercise Cool-Down (S3) if = 2.5 METs, Verbalizes symptoms of exercise intolerance by Session 3 (S3), Demonstrate safe equipment use (S3) & follows exercise prescrition (6) and Other: See below Intervention & Plan Plan/Intervention: Instruct warm-up & cool-down if exercising at > 2 METs, Instruct on symptoms of exercise intolerance & actions to take, Instruct & monitor on saf, Assess intial functional capacity & safety risk and Other See below Nutrition - Initial Assessment Program Goals Nutrition Program Goals Patient has diagnosis of Hyperlipidemia (ICD E78)?: Yes Visit Date of Eval: 08/28/25 (initial eval) Cholesterol/Lipids (Other Core Measures) Determine presence & major risk factors that modify LDL goal: Hypertension or hypertensive medication, Low HDL cholesterol <40 mg/dL*, Family history of premature CHD in Male < 55 years: female <65 yearsFa and Age men > 45 years; women >/= 55 years Outcomes/Goals: Pt IDs own risk factors & lifestyle modifications by Session 10, Verbalizes symptoms of angina & response by session 3., Pt independently manages and Other Additional Outcomes/Goals: Intervention/Plan: Advocate for lipid panel cholesterol medication if applicable, Instruct on personal lipid levels & lipid goals/NCEP guidelines, Instruct on cholesterol and Other additional plan/int Referral to dietitian:: No (Nutrition survey score of 2.) Diabetes (Other Core Measures) Diabetes Type: Not Applicable Weight Mgt (Other Care) Height: 5 ft 8 in Weight:: 203 lb BMI: 30.9 Diagnosis Overweight/Obesity BMI> 30% ICD-10 E66: Yes Diagnosis High BMI/Morbid Obesity BMI> 35% ICD-10 Z68: No Outcomes/Goals: Pt sets, maintains & shows weight loss goal & trend during rehab and Other additional outcomes/goals Healthy Eating Habits Will attend diet classes:: Yes Outcomes/Goals:: Consume diet rich in vegs,fruits,whole grain/high fiber,fish,lean meat, Limit sat/trans fats,cholesterol & added salts & sugars and Other additional outcome/goals: Intervention/Plan:: Assess current eating habits and Other Additional plan/interventions Education Gave educational materials for:: Signs & symptoms of hypoglycemia, Signs & symptoms of hyperglycemia, Relate diabetes to coronary artery disease and Healthy eating Core - Initial Assessment Visit Date of Eval: 08/28/25 (initial eval) Medication Compliance Preventative Medication(s):: Aspirin, Statin/lipid, Beta octaviano and ARB (Angiotensi Rcap) Doesn?t believe in the benefits of treatment?: No Believes medications are unnecessary or harmful?: No Has a concern about medication side effects?: No Expresses concern over the cost of medications?: No Outcomes/Goals: Verbalizes medications,desired effect & common side effects @ DC, Pt self-reports following medication regimen, Keeps card in wallet w/medications listed by DC and Other additional outcome/goals: Interventions/plans: Instruct on medication effects & side effects, Review medication list w/patient every two weeks, Instruct importance of taking meds as ordered & assist problem solving and Other additional Tobacco Use Tobacco Use: Non-smoker Hypertension Resting Blood Pressure:: 121/84 [place] [employer] Hypertension Guidelines Outcomes/Goals: Able to verbalize/achieve optimal blood pressure <130/80, Incorporates diet changes & exercise for blood pressure control by DC and Other additional outcomes/goals Interventions/plan: Instruct on optimal blood pressure, hypertension & medications, Instruct on effects of sodium, alcohol, stress, exercise &hypertension and Other additional plan/interventions Tobacco Cessation Referral Smoking Cessation Referral:: No Individual Education/Counseling:: No Education Schedule Given:: Yes Psychosocial - Initial Assess VIsit Date of Eval: 08/28/25 (initial eval) History of previous Mental disease:: No (Pt denies depression.) Psychosocial Test Tool Used:: [employer] Power QOL Cardiac and PHQ-9 Questionnaire phq-9 Severity See PHQ-9 Score: 1 Referral to Behavioral Health PS - Interventions: Yes: Attend Stress Management Classes Outcomes/Goals: See list Psychosocial Outcomes/Goals:: ID's personal stressors & 2 strategies to manage stress by discharge and Other Additional outcome/goals: Intervention/Plan: See List Interventions/Plan:: Assess stressors,coping strategies & signs of derpression on admission, Instruct/assist pt to develop coping & personal stress Mgt strategies, Refer to Behavioral Health if appropriate, Refer to Physician if appropriate, Instruct patient to recognize signs & symptoms of depression, Instruct patient to recog and Other additional plan/intervention Nutrition Survey Nutrition Survey Initial: Have you lost >10 lbs over the past 2 months without trying?: No Are you following a special diet at home for diabetes, low fat, or low salt?: No Are you interested in meeting with a dietitian for help understanding your diet?: No Do you eat less than 3 meals a day?: No Do you eat fatty meats (sheets, sausage, ribs, etc), fried foods, desserts, large amounts of salad dressings, margarine, butter, or cheese most days?: Yes Do you have food allergies? [Enter types in comment field]: No Do you eat in restaurants more than 3 times a week?: No Do you season food with salt, seasoning salt, or garlic salt?: Yes Do you used canned, boxed, frozen meals, or soups, seasoning packets?: No Total Score:: 2 Exercise - 30-day Assessment Physician Prescribed Exercise Modalities: Treadmill, Rower, [employer]inn Airdyne AD-7, SciFit Stepper, SciFit Pro-II Ergometer and SciFit Lateral [place] Exercise - 60-day Assessment Physician Prescribed Exercise Modalities: Treadmill, Rower, Schwinn Airdyne AD-7, SciFit Stepper, SciFit Pro-II Ergometer and SciFit Lateral [place] Exercise - 90-day Assessment Physician Prescribed Exercise Modalities: Treadmill, Rower, Schwinn Airdyne AD-7, SciFit Stepper, SciFit Pro-II Ergometer and SciFit Lateral Purification Operator Helper Exercise - Final/Discharge Physician Prescribed Exercise Modalities: Treadmill, Rower, Schwinn Airdyne AD-7, SciFit Stepper, SciFit Pro-II Ergometer and SciFit Lateral Purification Operator Helper Frequency: 3x/week for 12 weeks [36 sessions] Intensity: 60-80% of age predicted maximum heart rate reserve Current METSs:: 3 Target Heart Rate:: 101-127 Nutrition - 30-Day Assessment Weight Mgt (Other Care) Height: 5 ft 8 in Weight:: 203 lb BMI: 30.9 Nutrition - 60-Day Assessment Weight Mgt (Other Care) Height: 5 ft 8 in Weight:: 203 lb BMI: 30.9 Core - Final Assessment Hypertension Resting Blood Pressure:: 121/84 [place] [employer] Hypertension Guidelines Core - 60-Day Assessment Hypertension Resting Blood Pressure:: 121/84 [place] [employer] Hypertension Guidelines Psychosocial - 30-Day Assess Referral to Behavioral Health PS - Interventions: Yes: Attend Stress Management Classes Psychosocial - 60-Day Assess Referral to Behavioral Health PS - Interventions: Yes: Attend Stress Management Classes Psychosocial - 90-Day Assess Referral to Behavioral Health PS - Interventions: Yes: Attend Stress Management Classes Psychosocial - Final Assessmen Psychosocial Test phq-9 Severity See PHQ-9 Score: 1 Referral to Behavioral Health PS - Interventions: Yes: Attend Stress Management Classes Nutrition - 90-Day Assessment Weight Mgt (Other Care) Height: 5 ft 8 in Weight:: 203 lb BMI: 30.9 Nutrition - Final Assessment Program Goals Patient has diagnosis of Hyperlipidemia (ICD E78)?: Yes Weight Mgt (Other Care) Height: 5 ft 8 in Weight:: 203 lb BMI: 30.9
[2025-08-28 13:11] VITALS: BMI 30.9
[2025-08-28 13:37] VITALS: BP 121/84; BMI 30.9
== END | disposition home or self-care (01) ==
LOC: CR 12:51
PROVIDERS: PCP Family Medicine; Referring Provider Internal Medicine Cardiovascular Disease; Visit Provider Internal Medicine Cardiovascular Disease
DX: Z95.5 Presence of coronary angioplasty implant and graft (principal)

== ENCOUNTER → 2025-09-15 | Outpatient (CLI) | payer BC, SELFPAY ==
[2025-08-28 13:37] VITALS: BMI 30.9
== END | disposition home or self-care (01) ==
LOC: LAB 10:08
PROVIDERS: PCP Family Medicine; Referring Provider Nurse Practitioner Family; Visit Provider Nurse Practitioner Family
DX: I10 Essential (primary) hypertension (principal); E78.2 Mixed hyperlipidemia; Z95.5 Presence of coronary angioplasty implant and graft
CPT/HCPCS: 36415; 83695

== ENCOUNTER → 2025-09-22 | Outpatient (CLI) | payer BC, SELFPAY ==
[2025-08-28 13:37] VITALS: BMI 30.9
--- NOTE | 2025-09-22 10:42 | CDU_ITS ---
Reason For Study Reason For Study: HX CAD Rt. Velocities/BP Lt. Velocities/BP Prox CCA 78.1/24.1 cm/sec. Prox CCA 114.3/37.6 cm/sec. Mid CCA 88.8/28.6 cm/sec. Mid CCA 96.5/30.2 cm/sec. Dist CCA 85.1/28.6 cm/sec. Dist CCA 84.2/35.1 cm/sec. Prox ICA 68.3/14.2 cm/sec. Prox ICA 76.9/19.2 cm/sec. Mid ICA 63.5/22.3 cm/sec. Mid ICA 60.8/30.2 cm/sec. Dist ICA 61.8/28.9 cm/sec. Dist ICA 51.3/22.2 cm/sec. Rt. ICA/CCA = 0.8. Lt. ICA/CCA = 0.8. Prox ECA 128.4/37.9 cm/sec. Prox ECA 76.5/16.0 cm/sec. Rt. Vert. 46.0/16.1 cm/sec. Lt. Vert. 46.8/16.2 cm/sec. Right Extracranial There is homogeneous, smooth atherosclerotic plaque noted in the right common carotid artery. There is intimal thickening but no significant atherosclerotic plaque noted in the right internal carotid artery. There is homogeneous, smooth atherosclerotic plaque noted in the right external carotid artery. Antegrade flow is noted in the right vertebral artery. Left Extracranial There is homogeneous, smooth atherosclerotic plaque noted in the left common carotid artery. There is intimal thickening but no significant atherosclerotic plaque noted in the left internal carotid artery. There is homogeneous, smooth atherosclerotic plaque noted in the left external carotid artery. Antegrade flow is noted in the left vertebral artery. Procedure Carotid Duplex [id number]. This is a Carotid Duplex examination using B-mode, color flow and specral Doppler. The exam was diagnostic. Exam performed in department. VL/Carotid Duplex Ultrasound Interpretation Summary Normal right extracranial internal carotid. Normal left extracranial internal carotid. Patent and antegrade vertebrals bilaterally. Ordering Physician: Rajan De Anda Referring Physician: Deana Gutiérrez Performed By: Chris Pro RVT and Student
== END | disposition home or self-care (01) ==
PROVIDERS: PCP Family Medicine; Referring Provider Nurse Practitioner Family; Visit Provider Nurse Practitioner Family
DX: I65.22 Occlusion and stenosis of left carotid artery (principal); Z95.5 Presence of coronary angioplasty implant and graft
CPT/HCPCS: 93880